=== PATIENT | female | born 1980 | race African-American/Black ===

== ENCOUNTER → 2021-02-09 10:27 | Outpatient (BNVA) | payer OTHER, SELFPAY | PROVIDERS: PCP Internal Medicine; Visit Provider Internal Medicine Pulmonary Disease | DX: J45.909 Unspecified asthma, uncomplicated (principal) | CPT/HCPCS: 99202 ==

== ENCOUNTER 2021-02-24 09:56 | Outpatient (REF) | payer OTHER, SELFPAY ==
--- NOTE | 2021-02-24 11:17 | PFT_ITS ---
Forced vital capacity, moderately reduced, FEV1, MZV84-21, and MVV are markedly reduced. Post bronchodilator therapy, there is a significant improvement in FVC, FEV1, HBT31-24. Total lung capacity normal. Residual volume has markedly increased. Diffusion capacity normal. CONCLUSION: Severe obstructive airway disorder with evidence of air trapping. Significant response to bronchodilator therapy resulting in partial reversibility. These findings are consistent with asthma/COPD overlap syndrome. Clinical correlation is recommended. MD FRANTZ Teran/SHIVANI / [id number]
== END 2021-02-24 09:57 | disposition home or self-care (01) ==
LOC: HO.RESP 09:56
PROVIDERS: Visit Provider Internal Medicine Pulmonary Disease
DX: J45.50 Severe persistent asthma, uncomplicated (principal); Z79.899 Other long term (current) drug therapy
CPT/HCPCS: 94060; 94727; 94729; 99212

== ENCOUNTER → 2021-04-08 10:10 | Outpatient (BNVA) | payer OTHER, SELFPAY | PROVIDERS: PCP Internal Medicine; Visit Provider Internal Medicine Pulmonary Disease | DX: J45.909 Unspecified asthma, uncomplicated (principal); J30.89 Other allergic rhinitis | CPT/HCPCS: 99212 ==

== ENCOUNTER → 2021-04-27 10:40 | Outpatient (BNVA) | payer OTHER, SELFPAY | PROVIDERS: PCP Internal Medicine; Visit Provider Internal Medicine Pulmonary Disease | DX: J45.909 Unspecified asthma, uncomplicated (principal); Z71.89 Other specified counseling | CPT/HCPCS: 99211 ==

== ENCOUNTER → 2021-06-10 09:57 | Outpatient (BNVA) | payer OTHER, SELFPAY | PROVIDERS: PCP Internal Medicine; Visit Provider Internal Medicine Pulmonary Disease | DX: J45.909 Unspecified asthma, uncomplicated (principal); J30.89 Other allergic rhinitis | CPT/HCPCS: 99212 ==

== ENCOUNTER 2021-07-29 14:05 | Outpatient (REF) | payer OTHER, SELFPAY ==
--- NOTE | ~2021-07-29 | XR_ITS ---
EXAMINATION: XR CHEST CLINICAL INFORMATION: Unspecified asthma COMPARISON: None TECHNIQUE: 2 views of the chest were obtained. FINDINGS: No significant abnormality is noted involving the heart, lungs, mediastinum, bony thorax or soft tissues. XR/XR chest 2V IMPRESSION: Unremarkable chest examination.
== END 2021-07-29 14:06 | disposition home or self-care (01) ==
LOC: HO.XRAY 14:05
PROVIDERS: PCP Internal Medicine; Visit Provider Internal Medicine Pulmonary Disease
DX: J40 Bronchitis, not specified as acute or chronic (principal); J45.50 Severe persistent asthma, uncomplicated; J30.89 Other allergic rhinitis; F17.210 Nicotine dependence, cigarettes, uncomplicated
CPT/HCPCS: 71046; 99212

== ENCOUNTER 2021-08-05 11:35 | Outpatient (REF) | payer OTHER, SELFPAY ==
[2021-08-05 12:59] LABS: Basophils Percent Auto 0.8 % (0-2); Eosinophils Absolute Auto 0.1 X10*3/uL (0.0-0.4); Eosinophils Percent Auto 1.3 % (0-4); Hematocrit 40.3 % (37.0-47.0); Hemoglobin 13.5 g/dl (12.0-16.0); Imm Gran Abs Auto 0.01 X10*3/uL (0.00-0.03); Imm Gran Pct Auto 0.3 % (0.0-0.4); Lymphocytes Absolute Auto 2.1 X10*3/uL (1.2-4.9); Mean Corpuscular HGB Conc 33.5 g/dl (31.0-35.0); Mean Corpuscular Hemoglobin 30.7 pg (27.0-33.0); Mean Corpuscular Volume 91.6 fL (80.0-98.0); Monocytes Absolute Auto 0.3 X10*3/uL (0.1-1.2); Neutrophils Absolute Auto 1.5 x10*3/uL (2.0-8.3); Neutrophils Percent Auto 37.6 % (45-73); Platelet Count 362 X10*3/uL (160-400); Red Cell Distribution Width 13.4 % (11.0-16.0)
[2021-08-05 13:00] LABS: MANUAL DIFF FLAG NO
[2021-08-05 13:17] LABS: Alanine Aminotransferase 14 U/L (0-31); Albumin Level 3.8 g/dL (3.5-5.0); Alkaline Phosphatase 67 U/L (39-117); Anion Gap 13 (12-20); Aspartate Amino Transferase 11 U/L (5-31); Bilirubin Total 0.4 mg/dL (0.0-1.0); Blood Urea Nitrogen 9 mg/dL (9-16); C Reactive Protein 0.39 mg/dL (< or = 0.50); Calcium 9.1 mg/dL (8.4-10.2); Carbon Dioxide 27 mmol/L (22-29); Chloride 101 mmol/L (96-108); Cholesterol 191 mg/dL; Estimated Glomerular Filt Rate > 60; Glucose Random 78 mg/dL (60-115); Lipase 26 U/L (8-78); Potassium 4.1 mmol/L (3.3-5.1); Sodium 137 mmol/L (135-145); Total Protein 6.7 g/dL (6.5-8.0)
[2021-08-05 13:40] LABS: Thyroid Stimulating Hormone 1.04 uIU/mL (0.32-4.0)
== END 2021-08-05 11:36 | disposition home or self-care (01) ==
LOC: HO.10HDL 11:35
PROVIDERS: Visit Provider Internal Medicine
DX: R51.9 Headache, unspecified (principal); J45.909 Unspecified asthma, uncomplicated; R14.0 Abdominal distension (gaseous); R10.9 Unspecified abdominal pain
CPT/HCPCS: 36415; 80053; 82465; 83690; 84439; 84443; 85025; 86140

== ENCOUNTER 2022-01-13 10:35 | Emergency (ER) | payer OTHER, SELFPAY ==
[2022-01-13 12:28] VITALS: BP 143/99; PULSE 86; RESP 18; TEMP 36.4; O2SAT 98; BMI 27.0
--- NOTE | 2022-01-13 12:31 | ECG_ITS ---
Test Reason : palpitations and dizziness Blood Pressure : / mmHG Vent. Rate : 079 BPM Atrial Rate : 079 BPM P-R Int : 146 ms QRS Dur : 090 ms QT Int : 374 ms P-R-T Axes : 054 031 038 degrees QTc Int : 428 ms Normal sinus rhythm Nonspecific T wave abnormality Abnormal ECG When compared with ECG of 05-SEP-2018 20:44, Nonspecific T wave abnormality no longer evident in Lateral leads Referred By: Generic ED Physician Electronically Signed By:OSMAR LAKHANI
[2022-01-13 12:44] LABS: MANUAL DIFF FLAG NO
[2022-01-13 12:52] LABS: Basophils Percent Auto 0.5 % (0-2); Eosinophils Absolute Auto 0.1 X10*3/uL (0.0-0.4); Eosinophils Percent Auto 1.4 % (0-4); Hematocrit 40.4 % (37.0-47.0); Hemoglobin 13.3 g/dl (12.0-16.0); Imm Gran Abs Auto 0.01 X10*3/uL (0.00-0.03); Imm Gran Pct Auto 0.2 % (0.0-0.4); Lymphocytes Absolute Auto 2.4 X10*3/uL (1.2-4.9); Lymphocytes Percent Auto 41.3 % (20-40); Mean Corpuscular HGB Conc 32.9 g/dl (31.0-35.0); Mean Corpuscular Hemoglobin 29.3 pg (27.0-33.0); Mean Platelet Volume 9.8 fL (9.4-12.3); Monocytes Absolute Auto 0.4 X10*3/uL (0.1-1.2); Monocytes Percent Auto 6.7 % (2-11); Neutrophils Absolute Auto 2.9 x10*3/uL (2.0-8.3); Neutrophils Percent Auto 49.9 % (45-73); Platelet Count 327 X10*3/uL (160-400); Red Blood Count 4.54 X10*6/uL (4.20-5.50); Red Cell Distribution Width 15.9 % (11.0-16.0); White Blood Count 5.7 X10*3/uL (4.8-10.8)
[2022-01-13 13:10] LABS: Alanine Aminotransferase 14 U/L (0-31); Albumin Level 4.4 g/dL (3.5-5.0); Alkaline Phosphatase 80 U/L (39-117); Anion Gap 16 (12-20); Aspartate Amino Transferase 13 U/L (5-31); Bilirubin Total 0.4 mg/dL (0.0-1.0); Blood Urea Nitrogen 9 mg/dL (9-16); Calcium 9.6 mg/dL (8.4-10.2); Carbon Dioxide 26 mmol/L (22-29); Chloride 102 mmol/L (96-108); Creatinine Clr Calc Pharmacy 78.3; Estimated Glomerular Filt Rate > 60; Glucose Random 99 mg/dL (60-115); Potassium 4.5 mmol/L (3.3-5.1); Sodium 139 mmol/L (135-145); Total Protein 7.4 g/dL (6.5-8.0)
--- NOTE | 2022-01-13 15:29 | ED.GENADULT ---
HPI - General Adult General Chief complaint: General Medical Stated complaint: on and off pain on both ankles Time Seen by Provider: 01/13/22 12:45 Source: patient Mode of arrival: ambulatory History of Present Illness HPI narrative: 41-year-old female with a past medical history of 20+ pack-year smoking, severe persistent asthma, COPD, COVID-19 one month ago presenting to the ED complaining of intermittent palpitations since prior to COVID, intermittnent lightheadedness, SOB, chronic cough, and wheezing over the past week. States her lungs have not been the same since she had COVID-19. Also reports intermittent bilateral ankle swelling. Reports nausea and intermittent vomiting. Denies fever, worsening cough, diarrhea, abdominal pain, calf pain, recent travel, oral OCPs Onset (ago): week(s) Related Data Home Medications Medication Instructions Recorded Confirmed escitalopram oxalate 10 mg tablet 10 mg PO DAILY 02/09/21 04/27/21 hydroxyzine pamoate 25 mg capsule 25 mg PO BID 02/09/21 04/27/21 ipratropium 0.5 mg-albuterol 3 mg ml inhalation 02/09/21 04/27/21 (2.5 mg base)/3 mL nebulization soln Previous Rx's Medication Instructions Recorded dupilumab 300 mg/2 mL subcutaneous See Rx Instructions subcut Q2W 28 04/09/21 syringe (Dupixent) days #4 mL theophylline 400 mg 400 mg PO DAILY #30 tabs 05/21/21 tablet,extended release 24 hr Symbicort 160 mcg-4.5 2 puff inhalation BID 30 days #1 ea 06/10/21 mcg/actuation HFA aerosol inhaler (budesonide-formoterol) albuterol sulfate 90 mcg/actuation 2 puff inhalation Q4-6H PRN 06/10/21 aerosol inhaler shortness of breath or wheezing 30 days #1 ea levofloxacin 750 mg tablet 750 mg PO DAILY #7 tabs 07/29/21 fluticasone fur. 200 mcg-umeclid 1 inh inhalation DAILY 30 days #1 11/06/21 62.5 mcg-vilant 25 mcg ea inhalat.powder (Trelegy Ellipta) prednisone 10 mg tablet 40 mg PO DAILY 5 days #20 tabs 11/06/21 prednisone 20 mg tablet 40 mg PO DAILY 5 days #10 tabs 01/13/22 Allergies Allergy/AdvReac Type Severity Reaction Status Date / Time No Known Allergies Allergy Verified 01/13/22 12:31 Review of Systems Review of Systems: Constitutional: No Fever, No Chills, No Fatigue, No Malaise ENT/Mouth: No Hearing loss, No Ear Pain, No sore throat, No Rhinorrhea, No Swallowing Difficulty Eyes: No Eye Pain, No Swelling, No Redness, No Vision Changes Cardiovascular: No Chest Pain, + SOB, No Dyspnea on Exertion, No Orthopnea, + Edema, + Palpitations Respiratory: + Cough, No Sputum, + Wheezing, + Dyspnea Gastrointestinal: No Nausea, No Vomiting, No Diarrhea, No Constipation, No Abdominal pain Genitourinary: No Dysuria, No Urinary Frequency, No Hematuria, No Urinary Incontinence/retention, No Flank Pain Musculoskeletal: No joint pain, No Myalgias, No Joint Swelling Skin: No Skin Lesions, No rash Neuro: No Weakness, No Numbness, + lightheadedness, No Headache Yes all other systems are reviewed and are negative Constitutional: Constitutional: Reports as per [facility] Past Medical History Attestation statement: The following information was validated with the patient. Social History Social History Advance Directives: No Advance Directives Information Provided: No Physical Exam ED Vital Signs: Vital Signs - 24 hr 01/13/22 12:28 01/13/22 15:53 01/13/22 15:54 Temperature 97.5 F 97.9 F Pulse Rate 86 91 79 Respiratory Rate 18 20 19 Blood Pressure 143/99 H 133/81 Pulse Oximetry 98 97 Oxygen Delivery Method Room Air Room Air 01/13/22 16:58 01/13/22 16:58 01/13/22 16:59 Temperature Pulse Rate 89 84 104 H Respiratory Rate Blood Pressure 134/74 132/83 127/86 Pulse Oximetry Oxygen Delivery Method BMI result Body Mass Index 27.0 Const General: cooperative, healthy appearing and no acute distress Orientation/consciousness: patient oriented x3 Limitations: no limitations HENMT Head: Yes normal to inspection and Yes atraumatic Ears: hearing grossly normal bilaterally General nose exam: Normal external nose present Face and sinus: Yes normal facial exam Eyes General: appearance normal, both eyes and all related structures EOM: EOMs intact bilaterally Neck Neck: Yes normal visual inspection and Yes no meningeal signs Resp Effort & Inspection: normal respiratory effort and no respiratory distress Auscultation: wheezes expiratory wheezes and throughout Cardio Rate: regular rate Heart sounds: S1 normal heart sound present and S2 normal heart sound present GI Inspection: Yes normal to inspection Palpation (GI): Soft to palpation, nontender, no guarding and not rigid General: Yes no CVA tenderness Back/Spine/Pelvis Back: no CVA tenderness Skin Rashes: no rashes Wounds: no wounds Neuro General: patient oriented x3, tone normal and no meningeal signs Gait exam (Neuro): Normal gait present Extrem General: Yes normal to inspection, Yes no pedal edema and Yes no calf tenderness Course Course Course Narrative: -1641--no leukocytosis. Lactic acid negative. Troponin & BNP WNL -UA and negative -COVID-19 negative -1706--on re-evaluation patient reports symptomatic improvement after DuoNeb/IV Solu-Medrol. Lungs CTA. -4--patient no longer wants to wait for CXR, or blood hCG which she requested, will sign out AMA. is A&O x3, competent to make decisions, always welcome to return Medical Decision Making MDM Narrative Medical decision making narrative: 41-year-old female with a past medical history of 20+ pack-year smoking, severe persistent asthma, COPD, COVID-19 one month ago presenting to the ED complaining of intermittent palpitations since prior to COVID, lightheadedness, SOB, chronic cough, and wheezing over the past week. On exam vital signs stable, NAD, nontoxic-appearing, diffuse expiratory wheeze noted throughout, no appreciable pedal edema/calf tenderness. Concern for asthma/COPD exacerbation vs pneumonia vs viral illness vs ? CHF. Low suspicion for ACS/PE/DVT. Low suspicions for cervical dissection/CVT. Plan: EKG, labs, UA, , CXR, COVID-19 testing, DuoNeb, IV Solu-Medrol Medical Records Medical records reviewed: Yes I reviewed the patient's medical records. Lab Data Lab results reviewed: Yes I reviewed the patient's lab results. Result diagrams: 01/13/22 15:49 01/13/22 16:31 Labs: Lab Results 09/21/22 09/21/22 09/21/22 Range/Units 12:40 12:40 15:49 WBC 5.7 5.8 (4.8-10.8) X10*3/uL RBC 4.54 4.94 (4.20-5.50) X10*6/uL Hgb 13.3 14.3 (12.0-16.0) g/dl Hct 40.4 43.5 (37.0-47.0) % MCV 89.0 88.1 (80.0-98.0) fL MCH 29.3 28.9 (27.0-33.0) pg MCHC 32.9 32.9 (31.0-35.0) g/dl RDW 15.9 15.9 (11.0-16.0) % Plt Count 327 337 (160-400) X10*3/uL MPV 9.8 9.8 (9.4-12.3) fL Immature Gran % (Auto) 0.2 0.3 (0.0-0.4) % Neut % (Auto) 49.9 45.1 (45-73) % Lymph % (Auto) 41.3 H 47.4 H (20-40) % [place] % (Auto) 6.7 5.1 (2-11) % Eos % (Auto) 1.4 1.4 (0-4) % Baso % (Auto) 0.5 0.7 (0-2) % Lymph # (Auto) 2.4 2.8 (1.2-4.9) X10*3/uL [place] # (Auto) 0.4 0.3 (0.1-1.2) X10*3/uL Eos # (Auto) 0.1 0.1 (0.0-0.4) X10*3/uL Baso # (Auto) 0.0 0.0 (0.0-0.2) X10*3/uL Abs Immat Gran (auto) 0.01 0.02 (0.00-0.03) X10*3/uL Absolute Neuts (auto) 2.9 2.6 (2.0-8.3) x10*3/uL Absolute Nucleated RBC 0.000 0.000 (0.0-0.012) X10*3/uL Nucleated RBC % (auto) 0.0 0.0 (0.0-0.2) /100WBC Sodium 139 (135-145) mmol/L Potassium 4.5 (3.3-5.1) mmol/L Chloride 102 (96-108) mmol/L Carbon Dioxide 26 (22-29) mmol/L Anion Gap 16 (12-20) BUN 9 (9-16) mg/dL Creatinine 0.67 (0.5-1.4) mg/dL Estim Creat Clear Calc 78.3 Estimated GFR > 60 Random Glucose 99 (60-115) mg/dL Lactic Acid (0.5-2.0) mmol/L Calcium 9.6 (8.4-10.2) mg/dL Magnesium (1.6-2.6) mg/dL Total Bilirubin 0.4 (0.0-1.0) mg/dL Direct Bilirubin (0.0-0.5) mg/dL AST 13 (5-31) U/L ALT 14 (0-31) U/L Alkaline Phosphatase 80 (39-117) U/L Troponin I High Sens (<3.5-17.0) ng/L B-Natriuretic Peptide (<100) pg/mL Total Protein 7.4 (6.5-8.0) g/dL Albumin 4.4 (3.5-5.0) g/dL TSH (0.32-4.0) uIU/mL Beta HCG, Quant mIU/mL Urine Color Urine Appearance Urine pH (5.0-9.0) Ur Specific [place] (1.005-1.025) Urine Protein (Neg-Trace) mg/dL Urine Glucose (UA) (Negative) mg/dL Urine Ketones (Negative) mg/dL Urine Blood (Negative) Urine Nitrite (Negative) Ur Leukocyte Esterase (Negative) Urine Test (NEGATIVE) COVID-19 (JANA) (Negative) COVID-19 Clin Com 01/13/22 01/13/22 01/13/22 Range/Units 15:49 15:49 15:49 WBC (4.8-10.8) X10*3/uL RBC (4.20-5.50) X10*6/uL Hgb (12.0-16.0) g/dl Hct (37.0-47.0) % MCV (80.0-98.0) fL MCH (27.0-33.0) pg MCHC (31.0-35.0) g/dl RDW (11.0-16.0) % Plt Count (160-400) X10*3/uL MPV (9.4-12.3) fL Immature Gran % (Auto) (0.0-0.4) % Neut % (Auto) (45-73) % Lymph % (Auto) (20-40) % [place] % (Auto) (2-11) % Eos % (Auto) (0-4) % Baso % (Auto) (0-2) % Lymph # (Auto) (1.2-4.9) X10*3/uL [place] # (Auto) (0.1-1.2) X10*3/uL Eos # (Auto) (0.0-0.4) X10*3/uL Baso # (Auto) (0.0-0.2) X10*3/uL Abs Immat Gran (auto) (0.00-0.03) X10*3/uL Absolute Neuts (auto) (2.0-8.3) x10*3/uL Absolute Nucleated RBC (0.0-0.012) X10*3/uL Nucleated RBC % (auto) (0.0-0.2) /100WBC Sodium (135-145) mmol/L Potassium (3.3-5.1) mmol/L Chloride (96-108) mmol/L Carbon Dioxide (22-29) mmol/L Anion Gap (12-20) BUN (9-16) mg/dL Creatinine (0.5-1.4) mg/dL Estim Creat Clear Calc Estimated GFR Random Glucose (60-115) mg/dL Lactic Acid 1.5 (0.5-2.0) mmol/L Calcium (8.4-10.2) mg/dL Magnesium (1.6-2.6) mg/dL Total Bilirubin (0.0-1.0) mg/dL Direct Bilirubin (0.0-0.5) mg/dL AST (5-31) U/L ALT (0-31) U/L Alkaline Phosphatase (39-117) U/L Troponin I High Sens < 3.5 (<3.5-17.0) ng/L B-Natriuretic Peptide 53 (<100) pg/mL Total Protein (6.5-8.0) g/dL Albumin (3.5-5.0) g/dL TSH (0.32-4.0) uIU/mL Beta HCG, Quant mIU/mL Urine Color Urine Appearance Urine pH (5.0-9.0) Ur Specific [place] (1.005-1.025) Urine Protein (Neg-Trace) mg/dL Urine Glucose (UA) (Negative) mg/dL Urine Ketones (Negative) mg/dL Urine Blood (Negative) Urine Nitrite (Negative) Ur Leukocyte Esterase (Negative) Urine Test (NEGATIVE) COVID-19 (JANA) Negative (Negative) COVID-19 Clin Com See Note 01/13/22 01/13/22 01/13/22 Range/Units 15:49 15:49 16:31 WBC (4.8-10.8) X10*3/uL RBC (4.20-5.50) X10*6/uL Hgb (12.0-16.0) g/dl Hct (37.0-47.0) % MCV (80.0-98.0) fL MCH (27.0-33.0) pg MCHC (31.0-35.0) g/dl RDW (11.0-16.0) % Plt Count (160-400) X10*3/uL MPV (9.4-12.3) fL Immature Gran % (Auto) (0.0-0.4) % Neut % (Auto) (45-73) % Lymph % (Auto) (20-40) % [place] % (Auto) (2-11) % Eos % (Auto) (0-4) % Baso % (Auto) (0-2) % Lymph # (Auto) (1.2-4.9) X10*3/uL [place] # (Auto) (0.1-1.2) X10*3/uL Eos # (Auto) (0.0-0.4) X10*3/uL Baso # (Auto) (0.0-0.2) X10*3/uL Abs Immat Gran (auto) (0.00-0.03) X10*3/uL Absolute Neuts (auto) (2.0-8.3) x10*3/uL Absolute Nucleated RBC (0.0-0.012) X10*3/uL Nucleated RBC % (auto) (0.0-0.2) /100WBC Sodium 139 (135-145) mmol/L Potassium 3.9 (3.3-5.1) mmol/L Chloride 101 (96-108) mmol/L Carbon Dioxide 23 (22-29) mmol/L Anion Gap 19 (12-20) BUN 9 (9-16) mg/dL Creatinine 0.68 (0.5-1.4) mg/dL Estim Creat Clear Calc 77.2 Estimated GFR > 60 Random Glucose 99 (60-115) mg/dL Lactic Acid (0.5-2.0) mmol/L Calcium 9.3 (8.4-10.2) mg/dL Magnesium 1.9 (1.6-2.6) mg/dL Total Bilirubin 0.5 (0.0-1.0) mg/dL Direct Bilirubin 0.2 (0.0-0.5) mg/dL AST 14 (5-31) U/L ALT 12 (0-31) U/L Alkaline Phosphatase 81 (39-117) U/L Troponin I High Sens (<3.5-17.0) ng/L B-Natriuretic Peptide (<100) pg/mL Total Protein 7.7 (6.5-8.0) g/dL Albumin 4.6 (3.5-5.0) g/dL TSH 3.39 (0.32-4.0) uIU/mL Beta HCG, Quant < 2 mIU/mL Urine Color Yellow Urine Appearance Clear Urine pH 5.5 (5.0-9.0) Ur Specific [place] 1.020 (1.005-1.025) Urine Protein Negative (Neg-Trace) mg/dL Urine Glucose (UA) Negative (Negative) mg/dL Urine Ketones Trace (Negative) mg/dL Urine Blood Negative (Negative) Urine Nitrite Negative (Negative) Ur Leukocyte Esterase Negative (Negative) Urine Test NEGATIVE (NEGATIVE) COVID-19 (JANA) (Negative) COVID-19 Clin Com Discharge Plan Discharge Clinical Impression: Asthma exacerbation Patient Disposition: Left Against Medical Advice Additional Instructions: Your blood work and chest x-ray were reassuring. You tested negative for COVID-19 This important for you to have close follow-up with her primary care doctor/yarrow gatherer. START TAKING PREDNISONE PRESCRIBED. CONTINUE TAKING OTHER ASTHMA/COPD MEDICATIONS If symptoms persist/worsen, if constant worsening chest pain/shortness breath, swelling in her legs, fever return to the emergency department Prescriptions: New prednisone 20 mg tablet 40 mg PO DAILY 5 Days Qty: 10 0RF No Action Dupixent Syringe 300 mg/2 mL syringe See Rx Instructions subcut Q2W 28 Days Qty: 4 12RF Rx Instructions: Loading dose of 600 mg, then 300 mg every 2 weeks, subcut; theophylline 400 mg tablet extended release 24 hr 400 mg PO DAILY Qty: 30 0RF Trelegy Ellipta 200-62.5-25 mcg blister with device 1 inh inhalation DAILY 30 Days Qty: 1 6RF prednisone 10 mg tablet 40 mg PO DAILY 5 Days Qty: 20 0RF hydroxyzine pamoate 25 mg capsule 25 mg PO BID ipratropium-albuterol 0.5 mg-3 mg(2.5 mg base)/3 mL solution for nebulization inhalation escitalopram oxalate 10 mg tablet 10 mg PO DAILY budesonide-formoterol [Symbicort] 160-4.5 mcg/actuation HFA aerosol inhaler 2 puff inhalation BID 30 Days Qty: 1 6RF albuterol sulfate 90 mcg/actuation HFA aerosol inhaler 2 puff inhalation Q4-6H PRN (Reason: shortness of breath or wheezing) 30 Days Qty: 1 6RF levofloxacin 750 mg tablet 750 mg PO DAILY Qty: 7 0RF Referrals: Justin Madrid MD [Primary Care Provider] - 3 days Stand Alone Forms: Against Medical Advice Interventions: ED Discharge Assessment Last Done: 01/13/22 17:26 Discharge Date/Time: 01/13/22 17:28
[2022-01-13] MEDS: Albuterol Sulfate 5 MG, Albuterol Sulfate (0.083%) 2.5 MG 7.5 MG INHALE (15:51)
[2022-01-13] MEDS: Albuterol/Iprat 2.5/0.5MG 3 ML AMPUL.NEB INHALE (15:52)
[2022-01-13 15:53] VITALS: PULSE 91; RESP 20; O2SAT 97
[2022-01-13 15:54] VITALS: BP 133/81; PULSE 79; RESP 19; TEMP 36.6; O2SAT 97
[2022-01-13 16:00] LABS: MANUAL DIFF FLAG NO
[2022-01-13] MEDS: methylPREDNISolone Sod Succ 125 MG/2 ML VIAL IVPUSH (16:03)
[2022-01-13 16:05] LABS: Basophils Percent Auto 0.7 % (0-2); Eosinophils Absolute Auto 0.1 X10*3/uL (0.0-0.4); Eosinophils Percent Auto 1.4 % (0-4); Hematocrit 43.5 % (37.0-47.0); Hemoglobin 14.3 g/dl (12.0-16.0); Imm Gran Abs Auto 0.02 X10*3/uL (0.00-0.03); Imm Gran Pct Auto 0.3 % (0.0-0.4); Lymphocytes Absolute Auto 2.8 X10*3/uL (1.2-4.9); Lymphocytes Percent Auto 47.4 % (20-40); Mean Corpuscular HGB Conc 32.9 g/dl (31.0-35.0); Mean Corpuscular Hemoglobin 28.9 pg (27.0-33.0); Mean Corpuscular Volume 88.1 fL (80.0-98.0); Mean Platelet Volume 9.8 fL (9.4-12.3); Monocytes Absolute Auto 0.3 X10*3/uL (0.1-1.2); Monocytes Percent Auto 5.1 % (2-11); Neutrophils Absolute Auto 2.6 x10*3/uL (2.0-8.3); Neutrophils Percent Auto 45.1 % (45-73); Platelet Count 337 X10*3/uL (160-400); Red Blood Count 4.94 X10*6/uL (4.20-5.50); Red Cell Distribution Width 15.9 % (11.0-16.0); White Blood Count 5.8 X10*3/uL (4.8-10.8)
[2022-01-13 16:14] LABS: Appearance Urine Clear; Color Urine Yellow; Glucose Urine UA Negative (Negative); Leukocyte Esterase Urine Negative (Negative); Nitrite Urine Negative (Negative); PH 5.5 (5.0-9.0); Urine Blood Negative (Negative); Urine Ketones Trace mg/dL (Negative); Urine Protein Negative (Neg-Trace)
[2022-01-13 16:15] LABS: Lactic Acid 1.5 mmol/L (0.5-2.0); UPreg QC Valid YES; Urine Pregnancy NEGATIVE (NEGATIVE)
[2022-01-13 16:26] LABS: B Type Natriuretic Peptide 53 pg/mL (<100); Troponin-I High Sensitivity < 3.5 ng/L (<3.5-17.0)
[2022-01-13 16:30] LABS: COVID-19 Test Negative (Negative); IDNOW Serial# 9DD0AD1C
[2022-01-13 16:58] VITALS: BP 132/83; BP 134/74; PULSE 84; PULSE 89
[2022-01-13 16:59] VITALS: BP 127/86; PULSE 104
[2022-01-13 17:00] LABS: Alanine Aminotransferase 12 U/L (0-31); Albumin Level 4.6 g/dL (3.5-5.0); Alkaline Phosphatase 81 U/L (39-117); Anion Gap 19 (12-20); Aspartate Amino Transferase 14 U/L (5-31); Bilirubin Direct 0.2 mg/dL (0.0-0.5); Bilirubin Total 0.5 mg/dL (0.0-1.0); Blood Urea Nitrogen 9 mg/dL (9-16); Calcium 9.3 mg/dL (8.4-10.2); Carbon Dioxide 23 mmol/L (22-29); Chloride 101 mmol/L (96-108); Creatinine Clr Calc Pharmacy 77.2; Estimated Glomerular Filt Rate > 60; Glucose Random 99 mg/dL (60-115); Magnesium 1.9 mg/dL (1.6-2.6); Potassium 3.9 mmol/L (3.3-5.1); Sodium 139 mmol/L (135-145); Total Protein 7.7 g/dL (6.5-8.0)
[2022-01-13 17:22] LABS: TSH reflex Free T4 3.39 uIU/mL (0.32-4.0)
[2022-01-13 17:30] LABS: HCG Quantitative < 2 mIU/mL
== END 2022-01-13 17:28 | disposition left against medical advice (07) ==
PROVIDERS: Physician Assistant; Emergency Provider Emergency Medicine Emergency Medical Services; PCP Internal Medicine
DX: J45.901 Unspecified asthma with (acute) exacerbation (principal); R06.02 Shortness of breath; Z20.822 Contact with and (suspected) exposure to COVID-19; Z87.891 Personal history of nicotine dependence; Z79.899 Other long term (current) drug therapy
CPT/HCPCS: 36415; 80048; 80053; 80076; 81003; 81025; 83605; 83735; 83880; 84443; 84484; 84702; 85025; 87040; 87635; 93005; 94640; 96374; 99284; J2930

== ENCOUNTER 2022-01-28 14:00 | Outpatient (REF) | payer OTHER, SELFPAY ==
[2022-01-28 15:05] LABS: HCG Quantitative < 2 mIU/mL
== END 2022-01-28 14:01 | disposition home or self-care (01) ==
LOC: HO.LAB 14:00
PROVIDERS: PCP Internal Medicine; Visit Provider Internal Medicine
DX: Z34.90 Encounter for supervision of normal pregnancy, unspecified, unspecified trimester (principal); J45.909 Unspecified asthma, uncomplicated; U09.9 Post COVID-19 condition, unspecified
CPT/HCPCS: 36415; 84702; 99212

== ENCOUNTER 2022-04-12 10:08 | Outpatient (REF) | payer OTHER, SELFPAY ==
--- NOTE | 2022-04-12 11:15 | PFT_ITS ---
FLOWS: FEV1 47% of predicted at 1.07 L. FVC 69% of predicted at 1.94 L. FEV1 to FVC ratio of 0.55. Positive bronchodilator response. LUNG VOLUMES: Total lung capacity 107% of predicted at 4.31 L. Residual volume 186% of predicted at 2.47 L. Slow vital capacity 68% of predicted at 1.84 L. Expiratory reserve volume 32% of predicted at 0.28 L. Diffusion capacity is normal. In comparison to pulmonary function test from February of 2021, FEV1 has decreased by 0.28 L, FVC has decreased by 0.40 L, total lung capacity has decreased by 0.37 L, residual volume was without significant changes, slow vital capacity has decreased by 0.32 L, expiratory reserve volume has decreased by 0.15 L, diffusion capacity has decreased by 2.19 mL/minute per mmHg. IMPRESSION: Severe obstructive ventilatory defect with positive bronchodilator response. Increased residual volume suggests air trapping. Christo Darnell MD AP/MODL / [id number]
== END 2022-04-12 10:09 | disposition home or self-care (01) ==
LOC: HO.RESP 10:08
PROVIDERS: Visit Provider Internal Medicine Pulmonary Disease
DX: J45.909 Unspecified asthma, uncomplicated (principal)
CPT/HCPCS: 94060; 94727; 94729

== ENCOUNTER 2022-04-24 05:28 | Emergency (ER) | payer OTHER, SELFPAY ==
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
[2022-04-24 05:33] VITALS: BP 143/103; PULSE 107; RESP 20; TEMP 36.4; O2SAT 95; BMI 25.9
[2022-04-24 06:43] VITALS: BP 140/87; PULSE 84; RESP 16; TEMP 36.6; O2SAT 96
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
[2022-04-24 07:15] VITALS: BP 132/93; PULSE 94; RESP 26; TEMP 36.9; O2SAT 96
--- NOTE | 2022-04-24 07:15 | PC.NURSE ---
assumed care of patient, pt aox3, calm and cooperative, VSS, plan for PO pain control and d/c home
[2022-04-24] MEDS: LORazepam 1 MG TABLET PO (07:38)
[2022-04-24] MEDS: Ibuprofen 600 MG TABLET PO (07:38)
[2022-04-24] MEDS: Albuterol/Iprat 2.5/0.5MG 3 ML AMPUL.NEB INHALE (08:14)
[2022-04-24 08:16] VITALS: PULSE 106; RESP 16; O2SAT 93
== END 2022-04-24 08:40 | disposition home or self-care (01) ==
PROVIDERS: Emergency Provider Emergency Medicine; PCP Internal Medicine
DX: S22.42XA Multiple fractures of ribs, left side, initial encounter for closed fracture (principal); X58.XXXA Exposure to other specified factors, initial encounter; J45.909 Unspecified asthma, uncomplicated; F17.210 Nicotine dependence, cigarettes, uncomplicated; Y93.89 Activity, other specified; Y92.810 Car as the place of occurrence of the external cause; Y99.9 Unspecified external cause status
CPT/HCPCS: 71101; 94640; 99284

== ENCOUNTER → 2022-04-30 12:50 | Outpatient (BNVA) | payer OTHER, SELFPAY | PROVIDERS: PCP Internal Medicine; Visit Provider Internal Medicine Pulmonary Disease | DX: J45.50 Severe persistent asthma, uncomplicated (principal); J30.89 Other allergic rhinitis; J40 Bronchitis, not specified as acute or chronic | CPT/HCPCS: 99212 ==

== ENCOUNTER 2022-05-02 10:00 | Inpatient (IN) | payer OTHER, SELFPAY ==
[2022-05-02] VITALS (8 sets, daily range): BP systolic 120–147; BP diastolic 61–85; PULSE 95–119; RESP 16–28; TEMP 36.2–36.8; O2SAT 95–100; BMI 27.4
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
--- NOTE | 2022-05-02 11:15 | ECG_ITS ---
Test Reason : sob Blood Pressure : / mmHG Vent. Rate : 095 BPM Atrial Rate : 095 BPM P-R Int : 156 ms QRS Dur : 088 ms QT Int : 360 ms P-R-T Axes : 073 024 025 degrees QTc Int : 452 ms Normal sinus rhythm Nonspecifc T wave changes Abnormal ECG When compared with ECG of 13-JAN-2022 12:35, No significant change was found Referred By: Odette Muller Electronically Signed By:Saravanan Iniguez
[2022-05-02] MEDS: methylPREDNISolone Sod Succ 125 MG/2 ML VIAL IVPUSH (11:43)
[2022-05-02] MEDS: Magnesium Sulfate/H2O 2 GM/50 ML PIGGYBACK IV (11:46)
[2022-05-02 11:48] LABS: MANUAL DIFF FLAG NO
[2022-05-02 11:49] LABS: Basophils Percent Auto 0.7 % (0-2); Eosinophils Absolute Auto 0.1 X10*3/uL (0.0-0.4); Eosinophils Percent Auto 1.8 % (0-4); Hematocrit 39.7 % (37.0-47.0); Hemoglobin 13.4 g/dl (12.0-16.0); Imm Gran Abs Auto 0.01 X10*3/uL (0.00-0.03); Imm Gran Pct Auto 0.2 % (0.0-0.4); Lymphocytes Absolute Auto 2.3 X10*3/uL (1.2-4.9); Lymphocytes Percent Auto 40.2 % (20-40); Mean Corpuscular HGB Conc 33.8 g/dl (31.0-35.0); Mean Corpuscular Hemoglobin 28.6 pg (27.0-33.0); Mean Corpuscular Volume 84.8 fL (80.0-98.0); Mean Platelet Volume 9.2 fL (9.4-12.3); Monocytes Absolute Auto 0.4 X10*3/uL (0.1-1.2); Monocytes Percent Auto 7.1 % (2-11); Neutrophils Absolute Auto 2.8 x10*3/uL (2.0-8.3); Platelet Count 336 X10*3/uL (160-400); Red Blood Count 4.68 X10*6/uL (4.20-5.50); Red Cell Distribution Width 15.8 % (11.0-16.0); White Blood Count 5.7 X10*3/uL (4.8-10.8)
[2022-05-02 11:52] LABS: Appearance Urine Clear; Color Urine Yellow; Glucose Urine UA Negative (Negative); Leukocyte Esterase Urine Small (1+) (Negative); Nitrite Urine Negative (Negative); UMIC TRIGGER UACC YES; Urine Blood Large (3+) (Negative); Urine Ketones Negative (Negative); Urine Protein Negative (Neg-Trace)
[2022-05-02 11:54] LABS: UPreg QC Valid YES; Urine Pregnancy NEGATIVE (NEGATIVE)
[2022-05-02 11:55] LABS: Bacteria Urine None Seen (None Seen); Hyaline Casts Urine 0-2 /LPF (0-2); RBC Urine >20 /HPF (0-2); Squamous Epithelial Cell Urine 0-2 /HPF (0-2); UACC Culture Trigger YES; WBC Urine 21-50 /HPF (0-5)
[2022-05-02 11:55] LABS: INTERNATIONAL NORM RATIO 0.9 (0.9-1.1); Prothrombin Time 9.8 SEC (10.0-13.1)
[2022-05-02 12:07] LABS: COVID-19 Test Negative (Negative); IDNOW Serial# BCCEAD1C
[2022-05-02 12:08] LABS: IDNOW Serial# 16C4AD1C; Influenza A Negative (Negative); Influenza B2 Negative (Negative)
[2022-05-02 12:10] LABS: Amphetamine Screen Urine Not Detected (Not Detect); Barbiturates, Urine Not Detected (Not Detect); Benzodiazepines Screen Urine Not Detected (Not Detect); Cannabinoid Screen Urine Not Detected (Not Detect); Cocaine Screen Urine Not Detected (Not Detect); Fentanyl, urine Not Detected (Not Detect); Opiate Screen Urine Not Detected (Not Detect); Phencyclidine Screen Urine Not Detected (Not Detect)
[2022-05-02 12:11] LABS: B Type Natriuretic Peptide 54 pg/mL (<100)
[2022-05-02 13:05] LABS: Acetaminophen LAB < 17 mcg/mL (<30); Alanine Aminotransferase 11 U/L (0-31); Albumin Level 3.9 g/dL (3.5-5.0); Alkaline Phosphatase 64 U/L (39-117); Anion Gap 14 (12-20); Aspartate Amino Transferase 13 U/L (5-31); Bilirubin Direct 0.2 mg/dL (0.0-0.5); Bilirubin Total 0.4 mg/dL (0.0-1.0); Blood Urea Nitrogen 6 mg/dL (9-16); Calcium 8.7 mg/dL (8.4-10.2); Carbon Dioxide 24 mmol/L (22-29); Chloride 106 mmol/L (96-108); Creatinine Clr Calc Pharmacy 81.8; Estimated Glomerular Filt Rate > 60; Glucose Random 84 mg/dL (60-115); Lipase 10 U/L (8-78); Magnesium 2.8 mg/dL (1.6-2.6); Potassium 4.4 mmol/L (3.3-5.1); Sodium 140 mmol/L (135-145); Total Protein 6.4 g/dL (6.5-8.0)
[2022-05-02] MEDS: cefTRIAXone sodium 1 GM in 0.9 % Sodium Chloride 50 ML IV (13:17)
[2022-05-02] MEDS: iohexoL 350 MG/ML 100 ML INFUS..BTL IV (14:03)
[2022-05-02] MEDS: Albuterol Sulfate 7.5 MG, Albuterol Sulfate (0.083%) 2.5 MG 10 MG INHALE (14:07)
[2022-05-02] MEDS: Azithromycin 500 MG in 0.9 % Sodium Chloride 250 ML 125 MG IV (15:58)
[2022-05-02] MEDS: Ketorolac Tromethamine 15 MG/ML VIAL IVPUSH (16:54)
[2022-05-02] MEDS: Morphine Sulfate 2 MG/ML CARTRIDGE IVPUSH (16:55)
--- NOTE | 2022-05-02 17:44 | PHA.MEDREC ---
Pharmacy Consult ? Medication Reconciliation Pharmacy has completed the medication reconciliation.
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
[2022-05-02] MEDS: Nicotine 14 MG PATCH.TD24 TRANSDERMA (19:47)
[2022-05-02] MEDS: Benzonatate 100 MG CAPSULE PO (20:40)
[2022-05-02] MEDS: oxyCODONE HCl Immed Release 5 MG TABLET PO (20:40)
[2022-05-02] MEDS: Acetaminophen 325 MG TABLET 650 MG PO (20:41)
[2022-05-02] MEDS: hydrOXYzine HCL 25 MG TABLET PO (20:48)
[2022-05-02] MEDS: methylPREDNISolone Sod Succ 40 MG/ML VIAL IVPUSH (22:14)
[2022-05-03 04:02] VITALS: BP 120/72; PULSE 90; RESP 20; TEMP 36.7; O2SAT 100
--- NOTE | 2022-05-03 04:07 | PC.NURSE ---
Patient is alert and oriented x4. Patient is able to make her needs known. Patient has been using a bed side commode with assistance of 1 person. VSS. RR 20, O2 Sat 100% RA. Patient medicated with Tylenol and Oxycodone with good relief. Patient denies any pain at present.
[2022-05-03 07:48] VITALS: BP 119/70; PULSE 99; RESP 21; TEMP 36.7; O2SAT 100
[2022-05-03] MEDS: oxyCODONE HCl Immed Release 5 MG TABLET PO ×2 (09:10→14:42)
[2022-05-03] MEDS: Benzonatate 100 MG CAPSULE PO ×2 (09:10→14:43)
[2022-05-03] MEDS: Acetaminophen 325 MG TABLET 650 MG PO ×2 (09:11→14:43)
[2022-05-03] MEDS: Nicotine 14 MG PATCH.TD24 TRANSDERMA (09:11)
[2022-05-03] MEDS: methylPREDNISolone Sod Succ 40 MG/ML VIAL IVPUSH (10:15)
[2022-05-03 11:21] VITALS: PULSE 107; RESP 22; O2SAT 98
[2022-05-03 11:31] VITALS: BP 138/73; PULSE 92; RESP 20; TEMP 36.6; O2SAT 100
--- NOTE | 2022-05-03 12:21 | MHC.CM.PN ---
met with pt who lives alone pt has a lead generation specialist ,is not vax and has own ride home dc plan resume same
[2022-05-03] MEDS: cefTRIAXone sodium 1 GM in 0.9 % Sodium Chloride 50 ML IV (12:43)
[2022-05-03 14:44] VITALS: RESP 18; O2SAT 98
[2022-05-03 14:57] VITALS: BP 116/59; PULSE 107; RESP 17; TEMP 36.3; O2SAT 100
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
--- NOTE | 2022-05-03 16:07 | MHC.CM.PN ---
Patient has been medically cleared for dc to home today, self care.
== END 2022-05-03 17:00 | disposition home or self-care (01) | DRG 141 ==
LOC: HO.ED 15:30 → HO.EDOVER 18:09 → HO.IMC 05-03 09:34
PROVIDERS: Physician Assistant; Admitting Provider Hospitalist; Emergency Provider Emergency Medicine Emergency Medical Services; PCP Internal Medicine; Visit Provider Hospitalist
DX: J45.901 Unspecified asthma with (acute) exacerbation (principal); J18.9 Pneumonia, unspecified organism; S27.321A Contusion of lung, unilateral, initial encounter; F17.210 Nicotine dependence, cigarettes, uncomplicated; S22.42XA Multiple fractures of ribs, left side, initial encounter for closed fracture; V47.6XXA Car passenger injured in collision with fixed or stationary object in traffic accident, initial encounter; Z71.6 Tobacco abuse counseling; Z20.822 Contact with and (suspected) exposure to COVID-19; Z79.899 Other long term (current) drug therapy
CPT/HCPCS: 71260; 74177; 80048; 80076; 80143; 80307; 81001; 81025; 83690; 83735; 83880; 85025; 85610; 87086; 87502; 87635; 93005; 94640; 96365; 96367; 96375; 99222; 99285; J0456; J0696; J1885; J2270; J2920; J2930; J3475; Q9967

== ENCOUNTER 2022-05-11 17:37 | Emergency (ER) | payer OTHER, SELFPAY ==
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
[2022-05-11 18:10] VITALS: BP 145/83; PULSE 93; RESP 16; TEMP 36.4; O2SAT 100; BMI 27.4
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
[2022-05-11 18:35] LABS: MANUAL DIFF FLAG NO
[2022-05-11 18:36] LABS: Basophils Percent Auto 0.6 % (0-2); Eosinophils Absolute Auto 0.2 X10*3/uL (0.0-0.4); Eosinophils Percent Auto 2.4 % (0-4); Hematocrit 34.6 % (37.0-47.0); Hemoglobin 11.5 g/dl (12.0-16.0); Imm Gran Abs Auto 0.02 X10*3/uL (0.00-0.03); Imm Gran Pct Auto 0.3 % (0.0-0.4); Lymphocytes Absolute Auto 2.8 X10*3/uL (1.2-4.9); Lymphocytes Percent Auto 45.3 % (20-40); Mean Corpuscular HGB Conc 33.2 g/dl (31.0-35.0); Mean Corpuscular Hemoglobin 28.2 pg (27.0-33.0); Mean Corpuscular Volume 84.8 fL (80.0-98.0); Mean Platelet Volume 8.5 fL (9.4-12.3); Monocytes Absolute Auto 0.5 X10*3/uL (0.1-1.2); Monocytes Percent Auto 7.4 % (2-11); Neutrophils Absolute Auto 2.7 x10*3/uL (2.0-8.3); Platelet Count 415 X10*3/uL (160-400); Red Blood Count 4.08 X10*6/uL (4.20-5.50); Red Cell Distribution Width 15.8 % (11.0-16.0); White Blood Count 6.2 X10*3/uL (4.8-10.8)
[2022-05-11 18:37] LABS: Appearance Urine Clear; Color Urine Yellow; Glucose Urine UA Negative (Negative); Leukocyte Esterase Urine Negative (Negative); Nitrite Urine Negative (Negative); PH 8.5 (5.0-9.0); Specific Gravity - Urine 1.015 (1.005-1.025); Urine Blood Negative (Negative); Urine Ketones Negative (Negative); Urine Protein Negative (Neg-Trace)
[2022-05-11 18:54] LABS: UPreg QC Valid NO; Urine Pregnancy NEGATIVE (NEGATIVE)
[2022-05-11 18:57] LABS: Alanine Aminotransferase 17 U/L (0-31); Albumin Level 3.8 g/dL (3.5-5.0); Alkaline Phosphatase 78 U/L (39-117); Anion Gap 11 (12-20); Aspartate Amino Transferase 14 U/L (5-31); Bilirubin Total 0.2 mg/dL (0.0-1.0); Blood Urea Nitrogen 10 mg/dL (9-16); Carbon Dioxide 30 mmol/L (22-29); Chloride 100 mmol/L (96-108); Estimated Glomerular Filt Rate > 60; Glucose Random 98 mg/dL (60-115); HCG Quantitative < 2 mIU/mL; Potassium 4.3 mmol/L (3.3-5.1); Sodium 137 mmol/L (135-145); Total Protein 6.3 g/dL (6.5-8.0)
--- NOTE | 2022-05-11 22:34 | PC.NURSE ---
pt education provided on incentive spirometer usage.
== END 2022-05-11 22:35 | disposition home or self-care (01) ==
PROVIDERS: Physician Assistant; Emergency Provider Internal Medicine; PCP Internal Medicine
DX: S22.42XA Multiple fractures of ribs, left side, initial encounter for closed fracture (principal); M54.50 Low back pain, unspecified; V43.52XA Car driver injured in collision with other type car in traffic accident, initial encounter; Y93.9 Activity, unspecified; Y92.410 Unspecified street and highway as the place of occurrence of the external cause; Y99.9 Unspecified external cause status; Z79.899 Other long term (current) drug therapy
CPT/HCPCS: 36415; 71250; 74176; 80053; 81003; 81025; 84702; 85025; 99282; 99284

== ENCOUNTER → 2022-06-09 09:30 | Outpatient (BNVA) | payer OTHER, SELFPAY | PROVIDERS: PCP Internal Medicine; Visit Provider Internal Medicine Pulmonary Disease | DX: J45.50 Severe persistent asthma, uncomplicated (principal); J40 Bronchitis, not specified as acute or chronic; J30.89 Other allergic rhinitis; S22.49XA Multiple fractures of ribs, unspecified side, initial encounter for closed fracture; Z79.899 Other long term (current) drug therapy | CPT/HCPCS: 99212 ==

== ENCOUNTER 2022-07-06 13:27 | Outpatient (REF) | payer OTHER, SELFPAY ==
--- NOTE | ~2022-07-06 | CT_ITS ---
EXAMINATION: CT CHEST WITHOUT CONTRAST CLINICAL INFORMATION: Multiple fractures of ribs. COMPARISON: CT chest 05/11/2022 TECHNIQUE: Multidetector volumetric CT imaging of the chest was done. Axial MIP volume rendering provided. Sagittal and coronal reformatted images were obtained. This CT examination was performed using dose optimization techniques as appropriate, variously including the following: *Automated exposure control *Adjustment of mA and/or kV according to patient size (this includes techniques or standardized protocols for targeted exams where dose is matched to indication/reason for exam; i.e. extremities or head) *Use of iterative reconstruction technique DLP: 185 mGy-cm FINDINGS: MARINE INSULATOR: Unremarkable chest. LUNGS: The lungs are well-expanded and clear of acute pneumonic process. There is a 2 mm nodule left upper lobe axial image 13/6. MEDIASTINUM: The thyroid lobes are symmetric and normal. The central trachea and the bronchi are widely patent. The heart size and great vessels are normal caliber. No pericardial effusion seen. No abnormal size mediastinal or hilar lymph nodes seen. CORONARY ARTERY CALCIFICATION: None visualized on this study. PLEURA: There is no pleural effusion. No pleural mass or thickening. AXILLA: No lymphadenopathy. UPPER ABDOMEN: Visualized liver, spleen, pancreas and bilateral adrenal glands are unremarkable. OSSEOUS STRUCTURES: No aggressive lytic or sclerotic process seen. There is an acute fracture of the left posterior 11th and old healing fractures of the 10th, 9th, 5th and 4th ribs. CT/CT chest wo IV con IMPRESSION: There is acute left posterior rib fracture with multiple old healing fractures involving 4th, 5th, 9th and 10th ribs. Solitary 2 mm nodule left upper lobe, nonspecific. Fleischner guidelines were followed.
== END 2022-07-06 13:28 | disposition home or self-care (01) ==
LOC: HO.CT 13:27
PROVIDERS: PCP Internal Medicine; Visit Provider Internal Medicine Pulmonary Disease
DX: S22.42XA Multiple fractures of ribs, left side, initial encounter for closed fracture (principal)
CPT/HCPCS: 71250

== ENCOUNTER 2022-07-08 05:14 | Emergency (ER) | payer OTHER, SELFPAY ==
--- NOTE | ~2022-07-08 | XR_ITS ---
EXAMINATION: XR CHEST CLINICAL INFORMATION: Shortness of breath COMPARISON: CT dated 07/06/2022 TECHNIQUE: Frontal view of the chest was obtained. FINDINGS: Healing left lateral fourth and ninth rib fractures with accompanying callus formation. Known healing fractures of the left posterior 9th-11th ribs not well seen radiographically. No right rib fractures. Normal symmetric lung volumes. No parenchymal consolidation. No pleural effusion. No pneumothorax. Cardiomediastinal silhouette and pulmonary vascularity are within normal limits. XR/XR chest 1V IMPRESSION: * No acute pulmonary disease. * Healing left lateral fourth and ninth rib fractures.
[2022-07-08 05:25] VITALS: BP 157/97; PULSE 115; RESP 16; TEMP 36.8; O2SAT 99; BMI 26.6
[2022-07-08 05:43] VITALS: BP 116/79; PULSE 93; RESP 19; O2SAT 100
[2022-07-08 05:45] LABS: Appearance Urine Clear; Color Urine Yellow; Glucose Urine UA Negative (Negative); Leukocyte Esterase Urine Negative (Negative); Nitrite Urine Negative (Negative); Urine Blood Negative (Negative); Urine Ketones Negative (Negative); Urine Protein Negative (Neg-Trace)
[2022-07-08 05:47] LABS: UPreg QC Valid YES; Urine Pregnancy NEGATIVE (NEGATIVE)
[2022-07-08 05:59] LABS: COVID-19 Test Negative (Negative); IDNOW Serial# 08D9AD1C; IDNOW Serial# BCCEAD1C; Influenza A Negative (Negative); Influenza B2 Negative (Negative)
--- NOTE | 2022-07-08 06:53 | PC.NURSE ---
Provider at bedside for evaluation.
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
[2022-07-08 07:06] VITALS: BP 123/81; PULSE 84; RESP 16; O2SAT 99
[2022-07-08 07:23] VITALS: PULSE 83; RESP 18; O2SAT 100
[2022-07-08] MEDS: Albuterol Sulfate (0.083%) 2.5 MG/3 ML VIAL.NEB 5 MG INHALE (07:23)
--- NOTE | 2022-07-08 07:37 | PC.NURSE ---
ASSUMED CARE OF PT AT 0700. PT SEEN BY PROVIDER AND IS NOW CLEARED FOR DISCHARGE. PT RECEIVING NEB TX AT THIS TIME.
== END 2022-07-08 07:55 | disposition home or self-care (01) ==
PROVIDERS: Emergency Provider Emergency Medicine Emergency Medical Services; PCP Internal Medicine
DX: J45.901 Unspecified asthma with (acute) exacerbation (principal); R07.89 Other chest pain; Z20.822 Contact with and (suspected) exposure to COVID-19; R06.02 Shortness of breath; F17.210 Nicotine dependence, cigarettes, uncomplicated; F12.90 Cannabis use, unspecified, uncomplicated
CPT/HCPCS: 71045; 81003; 81025; 87502; 87635; 94640; 99284; 99285

== ENCOUNTER → 2022-10-13 08:56 | Outpatient (BNVA) | payer OTHER, SELFPAY | PROVIDERS: PCP Internal Medicine; Visit Provider Internal Medicine Pulmonary Disease | DX: J44.9 Chronic obstructive pulmonary disease, unspecified (principal); J45.50 Severe persistent asthma, uncomplicated; J30.89 Other allergic rhinitis; F17.210 Nicotine dependence, cigarettes, uncomplicated | CPT/HCPCS: 99212 ==

== ENCOUNTER 2023-01-05 10:06 | Outpatient (AMB) | payer OTHER, SELFPAY ==
[2023-01-05 10:07] VITALS: BP 117/70; PULSE 93; O2SAT 96; BMI 27.0
--- NOTE | 2023-01-05 10:07 | A.OFFVIS_ITS ---
Intake Vital Signs 01/05/23 10:07 Height 4 ft 9 in Weight 124 lb 8.979 oz BMI 27.0 BP 117/70 Blood Pressure Location Rt brachial Position Sitting Pulse 93 Pulse Source Doppler Pulse Oximetry (%) 96 Oxygen Delivery Method Room Air Intake Visit Reasons: COPD Allergies No Known Allergies Allergy (Verified 01/05/23 10:11) HPI COPD HPI Details 42-year-old lady, active 20+ pack-year s moker, followed for underlying severe persistent asthma.? Patient's symptoms are well controlled on Dupixent, Symbicort, duo nebs, and albuterol MDI. She complains an acute exacerbation this time symptomatic with cough productive of brownish sputum and wheezing. [facility] Medical History (Updated 07/09/22 @ 00:00 by Josefina Lawson) Asthma Social History (Updated 01/05/23 @ 10:11 by IRVIN Mcdonald) Household Members: Family Housing: Apartment Do you presently have visiting nurse or other home services: No Patient Tobacco Use Status: Current someday Tobacco user Tobacco use type: Cigarette Cigarettes Per Day: 10 Second Hand Smoke Exposure: No Substance Use Type: Marijuana service: No Review of Systems Const Denies daytime sleepiness, Denies excessive sweating, Denies fatigue, Denies fever(s), Denies lethargy, Denies malaise, Denies night sweats, Denies snoring and Denies weight loss Eyes Denies blurry vision and Denies itchy eyes ENT Denies nasal congestion, Denies post nasal drip, Denies sinus pain, Denies sinus pressure and Denies other ( Thrush) Card Denies chest pain, Denies pedal edema, Denies dyspnea, Denies orthopnea and Denies paroxysmal nocturnal dyspnea Resp Reports cough, Denies hemoptysis, Reports excessive phlegm production, Denies dyspnea, Denies snoring and Reports wheezing GI Denies abdominal pain and Denies heartburn Musc Denies myalgias, Denies arthralgias and Denies joint swelling Skin/Breast Denies rash Neuro Denies memory loss and Denies seizure-like activity Psych Denies abnormal sleep pattern, Denies anxiety and Denies memory loss Endo Denies excessive sweating, Denies fatigue and Denies heat intolerance Rafiq/Lymph Denies easy bruising Aller/Immun Denies itchy eyes, Denies seasonal rhinorrhea and Reports wheezing Physical Exam Vital Signs: Last Vital Signs Pulse 93 01/05/23 10:07 BP 117/70 01/05/23 10:07 Pulse Ox 96 01/05/23 10:07 Oxygen Delivery Method Room Air 01/05/23 10:07 BMI result Body Mass Index 27.0 Const General: no acute distress and alert Nutritional Appearance: not obese Orientation/consciousness: Other orientation findings ( oriented) HEENT Head: Yes atraumatic Eyes General: appearance normal, both eyes and all related structures Sclerae: sclerae normal EOM: EOMs intact bilaterally Neck Neck: Yes supple Lymphatic: no lymphadenopathy noted Resp Effort & Inspection: normal respiratory effort and no use of accessory muscles Auscultation: wheezes expiratory wheezes (Mild bilateral) Cardio Rate: regular rate Rhythm: regular rhythm Heart sounds: no gallops, no murmurs and no rubs Skin General skin exam: other ( warm) Extrem General: No clubbing, No cyanosis and No edema Assessment & Plan Assessment & Plan (1) Asthma: Code(s): J45.909 - Unspecified asthma, uncomplicated Plan: Baseline well controlled on Dupixent, Advair, duo nebs, and albuterol MDI. Continue current regimen. Now with an acute exacerbation, will treat with a course of prednisone and azithromycin. (2) Environmental and seasonal allergies: Code(s): J30.89 - Other allergic rhinitis Plan: Well controlled on Dupixent. Continue current regimen. Medications: New prednisone 40 mg (2 x 20 mg) PO DAILY 10 tabs 0RF 5 days azithromycin For 250 mg dose pack: take 500 mg today (day 1), then 250 mg for 4 days (days 2-5) PO 6 tabs 0RF Coding Level of Care Code Est Pt Level 4 (76551) Diagnoses Asthma J45.909 Environmental and seasonal allergies J30.89
== END 2023-01-05 10:30 | disposition home or self-care (01) ==
PROVIDERS: PCP Internal Medicine; Visit Provider Internal Medicine Pulmonary Disease
DX: J45.909 Unspecified asthma, uncomplicated (principal); J30.89 Other allergic rhinitis
CPT/HCPCS: 99214

== ENCOUNTER → 2023-01-05 10:06 | Outpatient (BNVA) | payer OTHER, SELFPAY | PROVIDERS: PCP Internal Medicine; Visit Provider Internal Medicine Pulmonary Disease | DX: J45.909 Unspecified asthma, uncomplicated (principal); J30.89 Other allergic rhinitis | CPT/HCPCS: 99212 ==

== ENCOUNTER 2023-05-11 14:19 | Outpatient (AMB) | payer OTHER, SELFPAY ==
[2023-05-11 14:21] VITALS: BP 107/72; PULSE 109; O2SAT 95; BMI 27.3
--- NOTE | 2023-05-11 14:21 | MHC.OFFVIS ---
Intake Vital Signs 05/11/23 14:21 Height 4 ft 9 in Weight 125 lb 15.157 oz BMI 27.3 BP 107/72 Blood Pressure Location Rt brachial Position Sitting Pulse 109 H Pulse Oximetry (%) 95 Oxygen Delivery Method Room Air Intake Visit Reasons: COPD Allergies No Known Allergies Allergy (Verified 05/11/23 14:22) HPI COPD HPI Details 42-year-old lady, active 20+ pack-year smoker, followed for underlying severe persistent asthma.? Patient's symptoms are baseline well controlled on Dupixent, Symbicort, duo nebs, and albuterol MDI. She does complain of an acute exacerbation symptomatic with cough productive of greenish sputum and wheezing. [facility] Medical History (Updated 07/09/22 @ 00:00 by Josefina Lawson) Asthma Social History Household Members: Family Housing: Apartment Do you presently have visiting nurse or other home services: No Patient Tobacco Use Status: Current someday Tobacco user Tobacco use type: Cigarette Cigarettes Per Day: 10 Second Hand Smoke Exposure: No Substance Use Type: Marijuana service: No Review of Systems Const Denies daytime sleepiness, Denies excessive sweating, Denies fatigue, Denies fever(s), Denies lethargy, Denies malaise, Denies night sweats, Denies snoring and Denies weight loss Eyes Denies blurry vision and Denies itchy eyes ENT Denies nasal congestion, Denies post nasal drip, Denies sinus pain, Denies sinus pressure and Denies other ( Thrush) Card Denies chest pain, Denies pedal edema, Denies dyspnea, Denies orthopnea and Denies paroxysmal nocturnal dyspnea Resp Reports cough, Denies hemoptysis, Reports excessive phlegm production, Denies dyspnea, Denies snoring and Reports wheezing GI Denies abdominal pain and Denies heartburn Musc Denies myalgias, Denies arthralgias and Denies joint swelling Skin/Breast Denies rash Neuro Denies memory loss and Denies seizure-like activity Psych Denies abnormal sleep pattern, Denies anxiety and Denies memory loss Endo Denies excessive sweating, Denies fatigue and Denies heat intolerance Rafiq/Lymph Denies easy bruising Aller/Immun Denies itchy eyes, Denies seasonal rhinorrhea and Reports wheezing Physical Exam Vital Signs: Last Vital Signs Pulse 109 H 05/11/23 14:21 BP 107/72 05/11/23 14:21 Pulse Ox 95 05/11/23 14:21 Oxygen Delivery Method Room Air 05/11/23 14:21 BMI result Body Mass Index 27.3 Const General: no acute distress and alert Nutritional Appearance: not obese Orientation/consciousness: Other orientation findings ( oriented) HEENT Head: Yes atraumatic Eyes General: appearance normal, both eyes and all related structures Sclerae: sclerae normal EOM: EOMs intact bilaterally Neck Neck: Yes supple Lymphatic: no lymphadenopathy noted Resp Effort & Inspection: normal respiratory effort and no use of accessory muscles Auscultation: wheezes expiratory wheezes (Bilateral) Cardio Rate: regular rate Rhythm: regular rhythm Heart sounds: no gallops, no murmurs and no rubs Skin General skin exam: other ( warm) Extrem General: No clubbing, No cyanosis and No edema Assessment & Plan Assessment & Plan (1) Asthma: Code(s): J45.909 - Unspecified asthma, uncomplicated Plan: Baseline controlled on Dupixent, Symbicort, duo nebs, and albuterol MDI. Continue current regimen. Now with bronchitic exacerbation, will treat with a course of Augmentin and prednisone. (2) Environmental and seasonal allergies: Code(s): J30.89 - Other allergic rhinitis Plan: Well controlled on Dupixent. Continue current regimen. Medications: New prednisone 40 mg (2 x 20 mg) PO DAILY 14 tabs 0RF amoxicillin-pot clavulanate 875-125 mg 1 tab PO BID 20 tabs 0RF Refilled ipratropium-albuterol 0.5 mg-3 mg(2.5 mg base)/3 mL 3 mL inhalation Q4H PRN 360 mL 6RF shortness of breath or wheezing 30 days Discontinued albuterol sulfate Discontinued Reason: Doctor's Order 2.5 mg (3 mL) inhalation Q4-6H PRN 180 mL 6RF shortness of breath or wheezing 30 days prednisone Discontinued Reason: Doctor's Order 40 mg (2 x 20 mg) PO DAILY 10 tabs 0RF 5 days azithromycin Discontinued Reason: Doctor's Order For 250 mg dose pack: take 500 mg today (day 1), then 250 mg for 4 days (days 2-5) PO 6 tabs 0RF Coding Level of Care Code Est Pt Level 4 (17496) Diagnoses Asthma J45.909 Environmental and seasonal allergies J30.89
== END 2023-05-11 14:33 | disposition home or self-care (01) ==
PROVIDERS: PCP Internal Medicine; Visit Provider Internal Medicine Pulmonary Disease
DX: J45.909 Unspecified asthma, uncomplicated (principal); J30.89 Other allergic rhinitis
CPT/HCPCS: 99214

== ENCOUNTER → 2023-05-11 14:19 | Outpatient (BNVA) | payer OTHER, SELFPAY | PROVIDERS: PCP Internal Medicine; Visit Provider Internal Medicine Pulmonary Disease | DX: J45.50 Severe persistent asthma, uncomplicated (principal); J30.89 Other allergic rhinitis | CPT/HCPCS: 99212 ==

== ENCOUNTER 2023-08-26 15:49 | Outpatient (AMB) | payer OTHER, SELFPAY ==
[2023-08-26 15:51] VITALS: BP 112/62; PULSE 99; O2SAT 97; BMI 27.4
--- NOTE | 2023-08-26 15:51 | MHC.OFFVIS ---
Vital Signs 08/26/23 15:51 Height 4 ft 9 in Weight 126 lb 12.253 oz BMI 27.4 BP 112/62 Blood Pressure Location Rt brachial Position Sitting Pulse 99 Pulse Source Doppler Pulse Oximetry (%) 97 Oxygen Delivery Method Room Air Intake Visit Reasons: productive cough/wheeze Allergies No Known Allergies Allergy (Verified 08/26/23 15:55) HPI HPI productive cough/wheeze: Details: 42-year-old lady, active 20+ pack-year smoker, followed for underlying severe persistent asthma.? Patient's symptoms are baseline well controlled on Dupixent, Symbicort, duo nebs, and albuterol MDI. Today she comes complain of acute exacerbation after a viral infection that she had 1 week prior, now symptomatic with cough productive of thick sputum and wheezing. [facility] Medical History (Updated 07/09/22 @ 00:00 by Josefina Lawson) Asthma Social History (Updated 08/26/23 @ 15:57 by Alejandra Browning [facility]) Household Members: Family Housing: Apartment Do you presently have visiting nurse or other home services: No Patient Tobacco Use Status: Current someday Tobacco user Tobacco use type: Cigarette Cigarettes Per Day: 15 Second Hand Smoke Exposure: No Substance Use Type: Marijuana service: No Review of Systems Const Denies daytime sleepiness, Denies excessive sweating, Denies fatigue, Denies fever(s), Denies lethargy, Denies malaise, Denies night sweats, Denies snoring and Denies weight loss Eyes Denies blurry vision and Denies itchy eyes ENT Denies nasal congestion, Denies post nasal drip, Denies sinus pain, Denies sinus pressure and Denies other ( Thrush) Card Denies chest pain, Denies pedal edema, Denies dyspnea, Denies orthopnea and Denies paroxysmal nocturnal dyspnea Resp Reports cough, Denies hemoptysis, Reports excessive phlegm production, Denies dyspnea, Denies snoring and Reports wheezing GI Denies abdominal pain and Denies heartburn Musc Denies myalgias, Denies arthralgias and Denies joint swelling Skin/Breast Denies rash Neuro Denies memory loss and Denies seizure-like activity Psych Denies abnormal sleep pattern, Denies anxiety and Denies memory loss Endo Denies excessive sweating, Denies fatigue and Denies heat intolerance Rafiq/Lymph Denies easy bruising Aller/Immun Denies itchy eyes, Denies seasonal rhinorrhea and Reports wheezing Physical Exam Vital Signs: Last Vital Signs Pulse 99 08/26/23 15:51 BP 112/62 08/26/23 15:51 Pulse Ox 97 08/26/23 15:51 Oxygen Delivery Method Room Air 08/26/23 15:51 BMI result Body Mass Index 27.4 Const General: no acute distress and alert Nutritional Appearance: not obese Orientation/consciousness: Other orientation findings ( oriented) HEENT Head: Yes atraumatic Eyes General: appearance normal, both eyes and all related structures Sclerae: sclerae normal EOM: EOMs intact bilaterally Neck Neck: Yes supple Lymphatic: no lymphadenopathy noted Resp Effort & Inspection: normal respiratory effort and no use of accessory muscles Auscultation: wheezes expiratory wheezes (Bilateral) Cardio Rate: regular rate Rhythm: regular rhythm Heart sounds: no gallops, no murmurs and no rubs Skin General skin exam: other ( warm) Extrem General: No clubbing, No cyanosis and No edema Assessment & Plan Assessment & Plan (1) Bronchitis: Code(s): J40 - Bronchitis, not specified as acute or chronic Category: Medical Plan: Now with an acute exacerbation, will treat with a course of prednisone and Levaquin. (2) Asthma: Code(s): J45.909 - Unspecified asthma, uncomplicated Category: Medical Plan: Baseline well controlled on Dupixent, Advair, duo nebs, and albuterol MDI. Continue current regimen. (3) Environmental and seasonal allergies: Code(s): J30.89 - Other allergic rhinitis Category: Medical Plan: Well controlled on Dupixent. Continue current regimen. Medications: New levofloxacin 750 mg PO DAILY 7 tabs 0RF Refilled prednisone 40 mg (2 x 20 mg) PO DAILY 14 tabs 0RF Coding Level of Care Code Est Pt Level 4 (39337) Diagnoses Bronchitis J40 Asthma J45.909 Environmental and seasonal allergies J30.89
== END 2023-08-26 16:04 | disposition home or self-care (01) ==
PROVIDERS: PCP Internal Medicine; Visit Provider Internal Medicine Pulmonary Disease
DX: J40 Bronchitis, not specified as acute or chronic (principal); J30.89 Other allergic rhinitis
CPT/HCPCS: 99214

== ENCOUNTER → 2023-08-26 15:49 | Outpatient (BNVA) | payer OTHER, SELFPAY | PROVIDERS: PCP Internal Medicine; Visit Provider Internal Medicine Pulmonary Disease | DX: J45.50 Severe persistent asthma, uncomplicated (principal); J40 Bronchitis, not specified as acute or chronic; J30.89 Other allergic rhinitis; Z79.899 Other long term (current) drug therapy | CPT/HCPCS: 99212 ==

== ENCOUNTER 2023-09-04 19:31 | Emergency (ER) | payer OTHER, SELFPAY ==
--- NOTE | ~2023-09-04 | XR_ITS ---
EXAMINATION: XR CHEST CLINICAL INFORMATION: Shortness of breath COMPARISON: Chest radiograph 07/08/2022. TECHNIQUE: Frontal view of the chest was obtained. FINDINGS: Clear lungs. No pleural effusion or pneumothorax. Cardiomediastinal silhouette is unchanged. Remote, healed left lateral fifth and sixth rib fractures. XR/XR chest 1V IMPRESSION: No acute cardiopulmonary abnormality.
--- NOTE | ~2023-09-04 | CT_ITS ---
EXAMINATION: CT ABDOMEN AND PELVIS WITHOUT CONTRAST CLINICAL INFORMATION: Left lower quadrant pain. History of diverticulitis. COMPARISON: 05/11/2022 TECHNIQUE: Multidetector volumetric imaging was performed from the superior aspect of the liver through the pubic symphysis. Sagittal and coronal reformatted images were obtained on the technologist's workstation. This CT examination was performed using dose optimization techniques as appropriate, variously including the following: *Automated exposure control *Adjustment of mA and/or kV according to patient size (this includes techniques or standardized protocols for targeted exams where dose is matched to indication/reason for exam; i.e. extremities or head) *Use of iterative reconstruction technique DLP: 424 mGy-cm FINDINGS: LUNG BASES: The visualized lung bases are unremarkable. LIVER, GALLBLADDER, AND BILIARY TREE: The liver is normal in size, shape, and attenuation. No focal hepatic lesion or biliary ductal dilatation is present. The gallbladder is contracted with no evidence of radiopaque gallstones, gallbladder wall thickening, or obvious pericholecystic inflammatory changes. PANCREAS: Unremarkable. SPLEEN: Unremarkable. ADRENAL GLANDS: Unremarkable. KIDNEYS AND URETERS: The kidneys are normal in size, shape, and attenuation. No hydronephrosis, hydroureter, or calculi seen. No perinephric stranding. BLADDER: Unremarkable. GASTROINTESTINAL TRACT: Focal peridiverticular fat stranding in the sigmoid anteriorly is consistent with acute diverticulitis superimposed upon moderate to severe diverticulosis. No surrounding fluid collections. No intraperitoneal free fluid. Stomach, small bowel, and colon are normal in caliber. ABDOMINAL WALL: No significant hernia is appreciated. LYMPH NODES: Normal. VASCULAR: Unremarkable. PELVIC VISCERA: The uterus and adnexa are unremarkable. OSSEOUS STRUCTURES: Mild osteoarthritis in the hips. No acute osseous abnormalities CT/CT abdomen pelvis wo IV con IMPRESSION: Acute uncomplicated sigmoid diverticulitis.
[2023-09-04 19:43] VITALS: BP 126/74; PULSE 104; RESP 16; TEMP 36.7; O2SAT 94; BMI 26.3
--- NOTE | 2023-09-04 19:48 | ED.GENADULT ---
HPI - General Adult General Chief complaint: General Medical Stated complaint: asthma COPD, diverticulitis flare up Time Seen by Provider: 09/04/23 21:16 Source: patient Mode of arrival: ambulatory Limitations: no limitations History of Present Illness HPI narrative: 43-year-old female came in for complaint of left lower abdominal pain for 2 days, patient had history of diverticulitis and constipation. No fever, no chills, no nausea, vomiting. Patient also have a history of bronchial asthma ran out her albuterol for nebulizer home came in with difficulty breathing and wheezing, nonproductive cough. Related Data Home Medications ?Medication ?Instructions ?Recorded ?Confirmed benzonatate 200 mg capsule 200 mg PO TID PRN 05/02/22 05/02/22 cyclobenzaprine 10 mg tablet 1 tab PO BID PRN pain 05/02/22 05/02/22 hydroxyzine pamoate 25 mg capsule 1 cap PO BID PRN Anxiety 05/02/22 05/02/22 fluticasone 250 mcg-salmeterol 50 1 ea inhalation BID 08/26/23 mcg/dose blistr powdr for inhalation (Advair Diskus) Previous Rx's ?Medication ?Instructions ?Recorded famotidine 20 mg tablet (Pepcid) 20 mg PO DAILY #14 tabs 05/03/22 nicotine 14 mg/24 hr daily 14 mg transdermal DAILY #30 ea 05/03/22 transdermal patch ibuprofen 600 mg tablet 600 mg PO Q6H PRN fever or pain 05/11/22 #30 tabs tramadol 50 mg tablet 50 mg PO Q6H PRN pain #20 tabs 05/11/22 dupilumab 300 mg/2 mL subcutaneous 300 mg (2 mL) subcut Q2W #4 mL 04/01/23 pen injector (Dupixent) ipratropium 0.5 mg-albuterol 3 mg 3 ml inhalation Q4H PRN shortness 05/13/23 (2.5 mg base)/3 mL nebulization of breath or wheezing 30 days #360 soln mL prednisone 20 mg tablet 40 mg (2 x 20 mg) PO DAILY #14 tabs 08/26/23 amoxicillin 875 mg-potassium 1 tab PO BID #20 tabs 08/31/23 clavulanate 125 mg tablet albuterol sulfate 90 mcg/actuation 2 puff PO Q4-6H PRN shortness of 09/03/23 aerosol inhaler (Ventolin HFA) breath or wheezing #18 ea albuterol sulfate 2.5 mg/3 mL 2.5 mg (3 mL) inhalation QID PRN 09/04/23 (0.083 %) solution for nebulization shortness of breath or wheezing #75 mL amoxicillin 875 mg-potassium 1 tab PO BID #20 tabs 09/04/23 clavulanate 125 mg tablet prednisone 20 mg tablet 20 mg PO BID #10 tabs 09/04/23 Allergies Allergy/AdvReac Type Severity Reaction Status Date / Time No Known Allergies Allergy Verified 09/04/23 19:46 Review of Systems Review of Systems: All other systems are reviewed and are negative Constitutional: Reports as per HPI and Reports no additional constitutional complaints Eyes: Reports as per HPI and Reports no additional eye complaints Reports system reviewed and no additional complaints, except as documented Cardiovascular: Reports as per HPI and Reports no additional cardiovascular complaints Respiratory: Reports as per HPI and Reports no additional respiratory complaints Gastrointestinal: Reports as per HPI and Reports no additional gastrointestinal complaints Genitourinary: Reports no additional female genitourinary complaints Musculoskeletal: Reports no additional musculoskeletal complaints Skin/Breast: Reports system reviewed and no additional complaints, except as docu Psychiatric: Reports no additional psychiatric complaints Endocrine: Reports no additional endocrine complaints Hematologic/Lymphatic: Reports no additional hematologic/lymphatic complaints Allergic/Immunologic: Reports no additional allergic/immunologic complaints Reports system reviewed and no additional complaints, except as documented and Reports Abnormal speech present [facility], [facility] Past Medical History Medical History Asthma Social History Social History Household Members: Family Housing: Apartment Do you presently have visiting nurse or other home services: No Patient Tobacco Use Status: Current someday Tobacco user Tobacco use type: Cigarette Cigarettes Per Day: 15 Second Hand Smoke Exposure: No Substance Use Type: Marijuana Advance Directives: No Advance Directives Information Provided: No Do you have a plan to hurt others: No Plan service: No Physical Exam ED Vital Signs: Vital Signs - 24 hr 09/04/23 19:43 09/04/23 20:27 09/04/23 21:58 Temperature 98.1 F 97.7 F Pulse Rate 104 H 93 95 Respiratory Rate 16 18 16 Blood Pressure 126/74 100/53 L Pulse Oximetry 94 94 Oxygen Delivery Method Room Air Room Air BMI result Body Mass Index 26.3 Vital signs have been reviewed and appear to be correct. Blood pressure elevated. Heart rate normal. Respiratory rate normal. Temperature normal. Oxygen saturation normal. Appearance: Alert. Oriented X3. No acute distress. Head: Normal external exam. Normocephalic. Atraumatic. No Perez signs noted. No raccoon eyes noted Eyes: PERRLA. EOMI. Conjunctiva and sclera normal. Eyelids normal. ENT: TM's Normal. Pharynx normal. Uvula midline. Moist mucous membranes. No trismus noted. No drooling noted. No muffled voice noted. Neck: Normal inspection. Neck supple. FROM. No adenopathy. Thyroid Normal. No meningeal signs. No neck mass noted. CVS: Normal heart rate and rhythm. Heart sound normal. No murmurs noted. Pulses normal throughout. Respiratory: No respiratory distress. Painless inspiration. Breath sounds normal. Bilateral diffuse expiratory wheezing with prolonged expiration with bilateral diminished of breathing sounds bilaterally, Chest nontender. Abdomen: Soft and nontender. Bowel sounds normal in all 4 quadrants. No distention noted. No organomegaly noted. No visible injury noted. Back: No CVA tenderness. Full range of motion noted. Skin: Skin warm and dry. Normal skin color. Normal skin turgor. No rashes/lesions/lacerations noted. Extremities: No lower extremity edema. Extremities exhibit normal range of motion. Extremities nontender. Neuro: Oriented X 3. Cranial nerve exam: II-XII are grossly intact No motor deficit. No sensory deficit. Reflexes normal. Course Course Course Narrative: RME performed by Carmen Elam PA-C. Patient is a 43 year old assigned female at presenting to the emergency department requesting a breathing treatment and complaining of now resolved abdominal pain. Patient states that she is out of the liquid for her nebulizer and also had abdominal pain the other days she would like to make sure is OK. Detailed physical exam and review of systems are deferred to the speech and language clinician. EKG, labs, imaging, and swabs ordered. Patient placed back in the waiting room pending room availability and results. Reevaluation(s) Reevaluation #1: 1. Acute asthma exacerbation patient ran out of albuterol for the nebulizer will refill, will also start the patient on 5 days of prednisone. 2. Abdominal pain CT consistent with acute sigmoid diverticulitis will start the patient on Augmentin along with the prednisone for the asthma should help patient's symptoms patient was instructed to follow-up with her photographic colorist. Time: 23:45 Medications Administered Discontinued Medications Generic Name Dose Route Start Last Admin Trade Name Freq PRN Reason Stop Dose Admin Albuterol Sulfate 5 mg/ 0 mg 09/04/23 20:23 09/04/23 20:26 Albuterol/Ipratropium 3 ml INHALE 09/04/23 20:24 2.5 each ONCE ONE Administration Medical Decision Making Differential Diagnosis Differential Diagnoses: The differential diagnosis associated with the presentation includes (Acute asthma exacerbation, pneumonia, pneumothorax, pleural effusion, electrolyte derangement, severe anemia.) Admission/Observation Consideration of admission/observation: Escalation of care including admission/observation considered Lab Data MDM Lab Attestation statement: I reviewed the patient's lab results. 09/04/23 20:02 09/04/23 20:02 Labs: Lab Results 09/04/23 09/04/23 Range/Units 20:02 21:18 WBC 6.7 (4.8-10.8) X10*3/uL RBC 4.25 (4.20-5.50) X10*6/uL Hgb 13.2 (12.0-16.0) g/dl Hct 37.5 (37.0-47.0) % MCV 88.2 (80.0-98.0) fL MCH 31.1 (27.0-33.0) pg MCHC 35.2 H (31.0-35.0) g/dl RDW 14.8 (11.0-16.0) % Plt Count 306 D (160-400) X10*3/uL MPV 9.5 (9.4-12.3) fL Immature Gran % (Auto) 0.1 (0.0-0.4) % Neut % (Auto) 39.1 L (45-73) % Lymph % (Auto) 51.4 H (20-40) % [place] % (Auto) 6.0 (2-11) % Eos % (Auto) 2.7 (0-4) % Baso % (Auto) 0.7 (0-2) % Lymph # (Auto) 3.4 (1.2-4.9) X10*3/uL [place] # (Auto) 0.4 (0.1-1.2) X10*3/uL Eos # (Auto) 0.2 (0.0-0.4) X10*3/uL Baso # (Auto) 0.1 (0.0-0.2) X10*3/uL Abs Immat Gran (auto) 0.01 (0.00-0.03) X10*3/uL Absolute Neuts (auto) 2.6 (2.0-8.3) x10*3/uL Absolute Nucleated RBC 0.000 (0.0-0.012) X10*3/uL Nucleated RBC % (auto) 0.0 (0.0-0.2) /100WBC PT 10.2 L (11.1-13.3) SEC INR 0.8 L (0.9-1.1) APTT 29.9 (26.0-36.8) SEC Sodium 141 (135-145) mmol/L Potassium 3.8 (3.3-5.1) mmol/L Chloride 104 (96-108) mmol/L Carbon Dioxide 25 (22-29) mmol/L Anion Gap 16 (12-20) BUN 12 (9-16) mg/dL Creatinine 0.76 (0.5-1.4) mg/dL Estim Creat Clear Calc 69.9 Estimated GFR > 60 Random Glucose 128 H (60-115) mg/dL Calcium 9.0 (8.4-10.2) mg/dL Magnesium 2.0 (1.6-2.6) mg/dL Total Bilirubin 0.3 (0.0-1.0) mg/dL AST 9 (5-31) U/L ALT 11 (0-31) U/L Alkaline Phosphatase 73 (39-117) U/L Troponin I High Sens < 2.7 (<3.5-17.0) ng/L Total Protein 6.8 (6.5-8.0) g/dL Albumin 3.9 (3.5-5.0) g/dL Urine Color Yellow Urine Appearance Clear Urine pH 5.0 (5.0-9.0) Ur Specific [place] >= 1.030 H (1.005-1.025) Urine Protein Trace (Neg-Trace) mg/dL Urine Glucose (UA) Negative (Negative) mg/dL Urine Ketones Trace (Negative) mg/dL Urine Blood Negative (Negative) Urine Nitrite Negative (Negative) Ur Leukocyte Esterase Negative (Negative) Influenza Type A (PCR) NEGATIVE (Negative) Influenza Type B (PCR) NEGATIVE (Negative) RSV RNA Qual (PCR) NEGATIVE (Negative) SARS-CoV-2 RNA (RT-PCR) NEGATIVE (Negative) Independent Interpretation I performed an independent interpretation of an: Plain X-Ray (Chest: No acute intrathoracic pathology.) and CT Scan (Acute uncomplicated sigmoid diverticulitis.) Radiology Impression Discussion of test interpretation with radiology: I have reviewed the radiologist's reading. Discharge Plan Discharge Clinical Impression: Acute asthma exacerbation, Abdominal pain, Diverticulitis Patient Disposition: Home, Self-Care Instructions: Asthma (ED) Prescriptions: New prednisone 20 mg tablet 20 mg PO BID Qty: 10 0RF albuterol sulfate 2.5 mg /3 mL (0.083 %) solution for nebulization 2.5 mg inhalation QID PRN (Reason: shortness of breath or wheezing) Qty: 75 0RF amoxicillin-pot clavulanate 875-125 mg tablet 1 tab PO BID Qty: 20 0RF No Action Dupixent Pen 300 mg/2 mL pen injector 300 mg subcut Q2W Qty: 4 12RF ipratropium-albuterol 0.5 mg-3 mg(2.5 mg base)/3 mL solution for nebulization 3 ml inhalation Q4H PRN (Reason: shortness of breath or wheezing) 30 Days Qty: 360 6RF amoxicillin-pot clavulanate 875-125 mg tablet 1 tab PO BID Qty: 20 0RF albuterol sulfate [Ventolin HFA] 90 mcg/actuation HFA aerosol inhaler 2 puff PO Q4-6H PRN (Reason: shortness of breath or wheezing) Qty: 18 6RF tramadol 50 mg tablet 50 mg PO Q6H PRN (Reason: pain) Qty: 20 0RF ibuprofen 600 mg tablet 600 mg PO Q6H PRN (Reason: fever or pain) Qty: 30 0RF cyclobenzaprine 10 mg tablet 1 tab PO BID PRN (Reason: pain) benzonatate 200 mg Capsule 200 mg PO TID hydroxyzine pamoate 25 mg capsule 1 cap PO BID PRN (Reason: Anxiety) nicotine 14 mg/24 hr Patch 24 Hour 14 mg transdermal DAILY Qty: 30 0RF famotidine [Pepcid] 20 mg tablet 20 mg PO DAILY Qty: 14 0RF fluticasone propion-salmeterol [Advair Diskus] 250-50 mcg/dose blister with device 1 ea inhalation BID prednisone 20 mg tablet 40 mg PO DAILY Qty: 14 0RF Print Language: Kinyarwanda
--- NOTE | 2023-09-04 19:49 | ECG_ITS ---
Test Reason : COPD Blood Pressure : / mmHG Vent. Rate : 098 BPM Atrial Rate : 098 BPM P-R Int : 134 ms QRS Dur : 086 ms QT Int : 350 ms P-R-T Axes : 076 038 029 degrees QTc Int : 446 ms Normal sinus rhythm Nonspecific T wave abnormality Abnormal ECG When compared with ECG of 02-MAY-2022 11:57, Nonspecific T wave abnormality now evident in Lateral leads Referred By: Carmen Elam Electronically Signed By:GANGA MATA MD
[2023-09-04 20:06] LABS: MANUAL DIFF FLAG NO
[2023-09-04 20:10] LABS: Basophils Absolute Auto 0.1 X10*3/uL (0.0-0.2); Basophils Percent Auto 0.7 % (0-2); Eosinophils Absolute Auto 0.2 X10*3/uL (0.0-0.4); Eosinophils Percent Auto 2.7 % (0-4); Hematocrit 37.5 % (37.0-47.0); Hemoglobin 13.2 g/dl (12.0-16.0); Imm Gran Abs Auto 0.01 X10*3/uL (0.00-0.03); Imm Gran Pct Auto 0.1 % (0.0-0.4); Lymphocytes Absolute Auto 3.4 X10*3/uL (1.2-4.9); Lymphocytes Percent Auto 51.4 % (20-40); Mean Corpuscular HGB Conc 35.2 g/dl (31.0-35.0); Mean Corpuscular Hemoglobin 31.1 pg (27.0-33.0); Mean Corpuscular Volume 88.2 fL (80.0-98.0); Mean Platelet Volume 9.5 fL (9.4-12.3); Monocytes Absolute Auto 0.4 X10*3/uL (0.1-1.2); Neutrophils Absolute Auto 2.6 x10*3/uL (2.0-8.3); Neutrophils Percent Auto 39.1 % (45-73); Platelet Count 306 X10*3/uL (160-400); Red Blood Count 4.25 X10*6/uL (4.20-5.50); Red Cell Distribution Width 14.8 % (11.0-16.0); White Blood Count 6.7 X10*3/uL (4.8-10.8)
[2023-09-04 20:14] LABS: INTERNATIONAL NORM RATIO 0.8 (0.9-1.1); Prothrombin Time 10.2 SEC (11.1-13.3)
[2023-09-04 20:16] LABS: Partial Thromboplastin Time 29.9 SEC (26.0-36.8)
[2023-09-04 20:24] LABS: Alanine Aminotransferase 11 U/L (0-31); Albumin Level 3.9 g/dL (3.5-5.0); Alkaline Phosphatase 73 U/L (39-117); Anion Gap 16 (12-20); Aspartate Amino Transferase 9 U/L (5-31); Bilirubin Total 0.3 mg/dL (0.0-1.0); Blood Urea Nitrogen 12 mg/dL (9-16); Carbon Dioxide 25 mmol/L (22-29); Chloride 104 mmol/L (96-108); Creatinine Clr Calc Pharmacy 69.9; Estimated Glomerular Filt Rate > 60; Glucose Random 128 mg/dL (60-115); Potassium 3.8 mmol/L (3.3-5.1); Sodium 141 mmol/L (135-145); Total Protein 6.8 g/dL (6.5-8.0)
[2023-09-04] MEDS: Albuterol Sulfate 5 MG, Albuterol/Iprat 2.5/0.5MG 3 ML 3 ML INHALE (20:26)
[2023-09-04 20:27] VITALS: PULSE 93; RESP 18; O2SAT 97
[2023-09-04 20:32] LABS: Troponin-I High Sensitivity < 2.7 ng/L (<3.5-17.0)
[2023-09-04 20:45] LABS: Influenza A PCR NEGATIVE (Negative); Influenza B PCR NEGATIVE (Negative); Resp Syncy Virus RNA Qual PCR NEGATIVE (Negative); SARS COV2 PCR INHOUSE NEGATIVE (Negative)
[2023-09-04 21:40] LABS: Appearance Urine Clear; Glucose Urine UA Negative (Negative); Leukocyte Esterase Urine Negative (Negative); Nitrite Urine Negative (Negative); Specific Gravity - Urine >= 1.030 (1.005-1.025); Urine Blood Negative (Negative); Urine Ketones Trace mg/dL (Negative); Urine Protein Trace mg/dL (Neg-Trace)
[2023-09-04 21:42] LABS: Color Urine Yellow
[2023-09-04 21:58] VITALS: BP 100/53; PULSE 95; RESP 16; TEMP 36.5; O2SAT 94
[2023-09-04 23:59] VITALS: BP 117/93; PULSE 97; RESP 16; TEMP 36.8; O2SAT 99
== END 2023-09-05 | disposition home or self-care (01) ==
PROVIDERS: Physician Assistant Medical; Emergency Provider Emergency Medicine
DX: K57.32 Diverticulitis of large intestine without perforation or abscess without bleeding (principal); J44.9 Chronic obstructive pulmonary disease, unspecified; R94.31 Abnormal electrocardiogram [ECG] [EKG]; J45.901 Unspecified asthma with (acute) exacerbation; R10.32 Left lower quadrant pain; K59.00 Constipation, unspecified; Z11.52 Encounter for screening for COVID-19; Z20.822 Contact with and (suspected) exposure to COVID-19; Z79.899 Other long term (current) drug therapy
CPT/HCPCS: 0241U; 71045; 74176; 80053; 81003; 83735; 84484; 85025; 85610; 85730; 93005; 94640; 99284; 99285

== ENCOUNTER → 2023-09-04 19:49 | Outpatient (BNV) | payer OTHER, SELFPAY | PROVIDERS: Emergency Provider Emergency Medicine; Visit Provider Internal Medicine Cardiovascular Disease | DX: J44.9 Chronic obstructive pulmonary disease, unspecified (principal) | CPT/HCPCS: 93010 ==

== ENCOUNTER 2023-10-20 09:13 | Outpatient (AMB) | payer OTHER, SELFPAY ==
[2023-10-20 09:19] VITALS: BP 122/67; PULSE 93; O2SAT 95; BMI 27.4
--- NOTE | 2023-10-20 09:19 | A.OFFVIS_ITS ---
Vital Signs 10/20/23 09:19 Height 4 ft 9 in Weight 126 lb 12.253 oz BMI 27.4 BP 122/67 Blood Pressure Location Rt brachial Position Sitting Pulse 93 Pulse Source Doppler Pulse Oximetry (%) 95 Oxygen Delivery Method Room Air Intake Visit Reasons: COPD Allergies No Known Allergies Allergy (Verified 10/20/23 09:25) HPI HPI COPD: Details: 42-year-old lady, active 20+ pack-year smoker, followed for underlying severe persistent asthma/COPD overlap syndrome.? Patient's symptoms were previously w ell controlled on Dupixent, Advair, duo nebs, and albuterol MDI, however with presybeterian of hot/humid weather she is experiencing more symptoms. She denies acute exacerbations. [facility] Medical History Asthma Social History Household Members: Family Housing: Apartment Do you presently have visiting nurse or other home services: No Unable to assess alcohol history related to: Unknown Patient Tobacco Use Status: Current someday Tobacco user Tobacco use type: Cigarette Cigarettes Per Day: 15 Second Hand Smoke Exposure: No Substance Use Type: Marijuana service: No Review of Systems Const Denies daytime sleepiness, Denies excessive sweating, Denies fatigue, Denies fever(s), Denies lethargy, Denies malaise, Denies night sweats, Denies snoring and Denies weight loss Eyes Denies blurry vision and Denies itchy eyes ENT Denies nasal congestion, Denies post nasal drip, Denies sinus pain, Denies sinus pressure and Denies other ( Thrush) Card Denies chest pain, Denies pedal edema, Denies dyspnea, Denies orthopnea and Denies paroxysmal nocturnal dyspnea Resp Denies cough, Denies hemoptysis, Denies excessive phlegm production, Denies dyspnea, Denies snoring and Denies wheezing GI Denies abdominal pain and Denies heartburn Musc Denies myalgias, Denies arthralgias and Denies joint swelling Skin/Breast Denies rash Neuro Denies memory loss and Denies seizure-like activity Psych Denies abnormal sleep pattern, Denies anxiety and Denies memory loss Endo Denies excessive sweating, Denies fatigue and Denies heat intolerance Rafiq/Lymph Denies easy bruising Aller/Immun Denies itchy eyes, Denies seasonal rhinorrhea and Denies wheezing Physical Exam Vital Signs: Last Vital Signs Pulse 93 10/20/23 09:19 BP 122/67 10/20/23 09:19 Pulse Ox 95 10/20/23 09:19 Oxygen Delivery Method Room Air 10/20/23 09:19 BMI result Body Mass Index 27.4 Const General: no acute distress and alert Nutritional Appearance: not obese Orientation/consciousness: Other orientation findings ( oriented) HEENT Head: Yes atraumatic Eyes General: appearance normal, both eyes and all related structures Sclerae: sclerae normal EOM: EOMs intact bilaterally Neck Neck: Yes supple Lymphatic: no lymphadenopathy noted Resp Effort & Inspection: normal respiratory effort and no use of accessory muscles Auscultation: clear to auscultation bilaterally Cardio Rate: regular rate Rhythm: regular rhythm Heart sounds: no gallops, no murmurs and no rubs Skin General skin exam: other ( warm) Extrem General: No clubbing, No cyanosis and No edema Assessment & Plan Assessment & Plan (1) Asthma: Code(s): J45.909 - Unspecified asthma, uncomplicated Category: Medical Plan: Suboptimal control on Advair, will switch to Trelegy. Continue Dupixent, duo nebs, and albuterol MDI. (2) Environmental and seasonal allergies: Code(s): J30.89 - Other allergic rhinitis Category: Medical Plan: Well controlled on Dupixent. Continue current regimen. Medications: New llwjejfwsxy-ihhcyrjsm-mgsgwyit 200-62.5-25 mcg (Trelegy Ellipta) 1 inh inha lation DAILY 30 days 1 ea 6RF prednisone 40 mg (2 x 20 mg) PO DAILY 20 tabs 0RF Discontinued prednisone Discontinued Reason: Doctor's Order 20 mg PO BID 10 tabs 0RF amoxicillin-pot clavulanate 875-125 mg Discontinued Reason: Doctor's Order 1 tab PO BID 20 tabs 0RF amoxicillin-pot clavulanate 875-125 mg Discontinued Reason: Doctor's Order 1 tab PO BID 20 tabs 0RF Coding Level of Care Code Est Pt Level 4 (60117) Diagnoses Asthma J45.909 Environmental and seasonal allergies J30.89
== END 2023-10-20 09:39 | disposition home or self-care (01) ==
PROVIDERS: PCP Internal Medicine; Visit Provider Internal Medicine Pulmonary Disease
DX: J45.909 Unspecified asthma, uncomplicated (principal); J30.89 Other allergic rhinitis
CPT/HCPCS: 99214

== ENCOUNTER → 2023-10-20 09:13 | Outpatient (BNVA) | payer OTHER, SELFPAY | PROVIDERS: PCP Internal Medicine; Visit Provider Internal Medicine Pulmonary Disease | DX: J45.50 Severe persistent asthma, uncomplicated (principal); J30.89 Other allergic rhinitis; F17.210 Nicotine dependence, cigarettes, uncomplicated | CPT/HCPCS: 99212 ==

== ENCOUNTER 2024-01-09 12:52 | Emergency (ER) | payer OTHER, SELFPAY ==
[2024-01-09] VITALS (10 sets, daily range): BP systolic 112–170; BP diastolic 68–95; PULSE 75–96; RESP 16–98; TEMP 36.4–37.1; O2SAT 97–100; BMI 27.2
--- NOTE | ~2024-01-09 | XR_ITS ---
EXAMINATION: XR CHEST CLINICAL INFORMATION: Shortness of breath COMPARISON: Chest x-ray September 04, 2023 TECHNIQUE: 2 views of the chest were obtained. FINDINGS: No significant abnormality is noted involving the heart, lungs, mediastinum, bony thorax or soft tissues. XR/XR chest 2V IMPRESSION: Unremarkable examination. Electronically signed by: Levy Valdez MD 01/09/2024 08:31 PM EDT RP
--- NOTE | 2024-01-09 12:59 | ED.DIZZY ---
HPI - Dizziness General Chief Complaint: Dizziness Stated Complaint: Dizzy Time Seen by Provider: 01/09/24 16:31 Source: patient and RN notes reviewed Mode of arrival: ambulatory Limitations: no limitations History of Present Illness ED Provider: Kellee Robin PA-C HPI Narrative: This is a 43-year-old female, with a history of COPD and asthma, who presents emergency department with complaints of dizziness, lightheadedness, wheezing, shortness of breath and headaches for the last 3 days. Patient describes the dizziness as if the room is spinning. She states that the symptoms are intermittent. She states that while she was at [employer] today, she felt another episode of dizziness with wheezing that lasted several seconds and resolved on its own. She states that she notices dizziness when she is walking around. Denies any ringing in her ears. Denies taking any medications at home to treat her current symptoms. She also endorses she has had increased wheezing. Denies any recent travel, hospitalizations or surgeries. No vision changes. Denies any fevers, chills, chest pain, abdominal pain, nausea, vomiting or diarrhea. Denies any other complaints or concerns at this time. MD elicited complaint: dizziness Severity: moderate Description: room spinning History of similar symptoms: No Exacerbating factors: movement/ambulation Relieving factors: remaining still Associated symptoms: denies other symptoms Related Data Home Medications ?Medication ?Instructions ?Recorded ?Confirmed benzonatate 200 mg capsule 200 mg PO TID PRN 05/02/22 05/02/22 cyclobenzaprine 10 mg tablet 1 tab PO BID PRN pain 05/02/22 05/02/22 hydroxyzine pamoate 25 mg capsule 1 cap PO BID PRN Anxiety 05/02/22 05/02/22 Previous Rx's ?Medication ?Instructions ?Recorded famotidine 20 mg tablet (Pepcid) 20 mg PO DAILY #14 tabs 05/03/22 nicotine 14 mg/24 hr daily 14 mg transdermal DAILY #30 ea 05/03/22 transdermal patch ibuprofen 600 mg tablet 600 mg PO Q6H PRN fever or pain 05/11/22 #30 tabs tramadol 50 mg tablet 50 mg PO Q6H PRN pain #20 tabs 05/11/22 dupilumab 300 mg/2 mL subcutaneous 300 mg (2 mL) subcut Q2W #4 mL 04/01/23 pen injector (Dupixent) albuterol sulfate 90 mcg/actuation 2 puff PO Q4-6H PRN shortness of 09/03/23 aerosol inhaler (Ventolin HFA) breath or wheezing #18 ea albuterol sulfate 2.5 mg/3 mL 2.5 mg (3 mL) inhalation QID PRN 09/05/23 (0.083 %) solution for nebulization shortness of breath or wheezing #75 mL prednisone 20 mg tablet 40 mg (2 x 20 mg) PO DAILY #20 tabs 10/20/23 fluticasone furoate 200 1 inh inhalation DAILY 30 days #1 11/14/23 mcg-vilanterol 25 mcg/dose ea inhalation powder (Breo Ellipta) umeclidinium 62.5 mcg/actuation 1 inh inhalation DAILY #1 ea 11/14/23 blister powder for inhalation (Incruse Ellipta) ipratropium 0.5 mg-albuterol 3 mg 3 ml inhalation Q4H PRN shortness 11/29/23 (2.5 mg base)/3 mL nebulization of breath or wheezing 30 days #360 soln mL prednisone 20 mg tablet 40 mg (2 x 20 mg) PO DAILY 5 days 01/09/24 #10 tabs Allergies Allergy/AdvReac Type Severity Reaction Status Date / Time No Known Allergies Allergy Verified 01/09/24 12:59 Review of Systems Review of Systems: Yes all other systems are reviewed and are negative Constitutional: Constitutional: Reports as per [facility] Past Medical History Attestation statement: The following information was validated with the patient. Medical History Asthma Social History Social History Household Members: Family Housing: Apartment Do you presently have visiting nurse or other home services: No Unable to assess alcohol history related to: Unknown Patient Tobacco Use Status: Current someday Tobacco user Tobacco use type: Cigarette Cigarettes Per Day: 15 Second Hand Smoke Exposure: No Substance Use Type: Marijuana Advance Directives: No Advance Directives Information Provided: No Do you have a plan to hurt others: No Plan service: No Physical Exam Vital Signs: Vital Signs: Last Vital Signs Temp 97.5 F 01/09/24 20:01 Pulse 77 01/09/24 20:01 Resp 16 01/09/24 20:01 BP 129/73 01/09/24 20:01 Pulse Ox 97 01/09/24 20:01 O2 Del Method Room Air 01/09/24 19:59 BMI result Body Mass Index 27.2 Const: General: cooperative, comfortable and no acute distress Orientation/consciousness: patient oriented x3 Limitations: no limitations HEENT: Head: Yes normal to inspection, Yes normocephalic and Yes atraumatic Ears: hearing grossly normal bilaterally General nose exam: Normal external nose present Face and sinus: Yes normal facial exam Mouth: Normal oral and palatal mucosa present, oropharynx normal and moist mucous membranes Throat: Yes posterior oropharynx normal Eyes: General: appearance normal, both eyes and all related structures Eyelids: Yes eyelids normal Conjunctivae: conjunctivae normal Sclerae: sclerae normal Pupils: Equal, round and reactive pupils present EOM: EOMs intact bilaterally Neck: Neck: Yes normal visual inspection, Yes full ROM and Yes no lymphadenopathy Lymphatic: no lymphadenopathy noted Chest: Chest palpation & inspection: normal inspection of the chest Resp: Other: Inspiratory and expiratory wheezes noted throughout all lung muller, auditory wheezing heard with speaking. Effort & Inspection: able to speak in complete sentences, audible wheezes, no cough, labored, no pursed lip breathing and no use of accessory muscles Cardio: Rate: regular rate Rhythm: regular rhythm Heart sounds: S1 normal heart sound present and S2 normal heart sound present GI: Inspection: Yes normal to inspection Skin: General skin exam: no rashes or lesions noted Trauma: no lacerations or abrasions Wounds: no wounds Neuro: General: patient oriented x3 and moves all extremities Cranial nerves: Yes CN's II-XII intact bilaterally and Yes Equal, round and reactive pupils present Cognition (Neuro): normal cognition Gait exam (Neuro): Normal gait present Motor exam (neuro): 5/5 motor strength present throughout, Pronator motor function not present and no tremor noted Coordination: [id number] test normal and [id number] test normal Romberg Test: Negative Extrem: General: Yes normal to inspection Right upper extremity: normal to inspection Left upper extremity: normal to inspection Right lower extremity: normal to inspection Left lower extremity: normal to inspection NIH Stroke Scale Internal: Initial- Upon Arrival Time: 18:14 Level of Consciousness: Alert Level of Consciousness Questions: Answers both questions correctly Level of Consciousness Commands: Performs both tasks correctly Best Gaze: Normal Visual: No visual loss Facial Palsy: Normal Motor Arm (Right): No drift Motor Arm (Left): No drift Motor Leg (Right): No drift Motor Leg (Left): No drift Limb Ataxia: Absent Sensory: Normal Best Language: No aphasia Dysarthia: Normal Extinction and Inattention: No abnormality Score: 0 Course Course Course Narrative: This is a Rapid Medical Examination (RME) performed by Conor Patterson PA-C in triage. Full HPI, ROS, assessment and treatment plan per primary provider in the Main ED. 43 yo female hx of anxiety and asthma here for evaluation of intermittent light headedness x3 days. OLIVEROS feels like her typical migraine. no OTC meds at home for symptoms. denies chest pain, sob, wheezing, cough, LE pain/ swelling. No recent travel or long car rides. no difficulty ambulating. n ovision changes. + well appearing. exam nonfocal. PERRLA. ambulating with steady gait. Plan: basic labs, ekg Reevaluation(s) Reevaluation #1: Patient feeling much better, lungs CTAB. D/c with steroids. given return precautions, advised to f/u with certified cytotechnologist. Time: 19:45 Medications Administered Discontinued Medications Generic Name Dose Route Start Last Admin Trade Name Joseq PRN Reason Stop Dose Admin Albuterol Sulfate 2.5 mg/ 0 mg 01/09/24 17:39 01/09/24 17:43 Albuterol/Ipratropium 3 ml INHALE 01/09/24 17:40 1 dose ONCE ONE Administration Magnesium Sulfate 2 gm in 50 mls @ 25 mls/hr 01/09/24 18:10 01/09/24 18:42 Magnesium Sulfate/H2o IV 01/09/24 20:09 200 mls/hr ONCE ONE Administration Methylprednisolone Sodium Succinate 125 mg 01/09/24 18:10 01/09/24 18:45 Methylprednisolone Sod Succ 125 Mg/2 Ml Vial IVPUSH 01/09/24 18:11 125 mg ONCE ONE Administration Medical Decision Making Medical Decision Making [facility] Narrative: this is a 43-year-old female, with a history of asthma, who presents emergency department with complaints of dizziness, and shortness of breath. Audible wheezing heard throughout my physical examination. Lungs with inspiratory and expiratory wheezes noted throughout all lung muller. Patient reports that the dizziness occurs when walking, reports shortness of breath associated. She states that this has been present for the last 3 days. No ear ringing. She is neurologically intact without any neurologic deficits. Labs were obtained, she has slight leukopenia at 4.2, chemistry within normal limits. She is not orthostatic. Troponin x2 less than 2.7, beta quant less than 2. EKG sinus rhythm with occasional PVCs at a ventricular rate of 95 beats per minute, QT QTC 354/444. Patient symptoms are likely secondary to lung sounds as patient is incredibly wheezy. She was treated with IV Solu-Medrol, magnesium, and updraft. She is feeling much better after receiving these medications. Chest x-ray was ordered and un remarkable. Pt feeling much better, symptoms consistent with asthma exacerbation. Pt d/c on steroids, given strict return precautions. She understands and agrees with plan. Patient stable for discharge. Differential Diagnosis Differential Diagnoses: The differential diagnosis associated with the presentation includes Electrolyte derangement, arrhythmia, ACS, dehydration, orthostatic hypotension, pneumonia, reactive airway disease Admission/Observation Consideration of admission/observation: Escalation of care including admission/observation considered Lab Data [facility] Lab Attestation statement: I reviewed the patient's lab results. See [facility] 01/09/24 13:31 01/09/24 13:31 Labs: Lab Results 01/09/24 01/09/24 Range/Units 13:31 18:01 WBC 4.2 L (4.8-10.8) X10*3/uL RBC 4.53 (4.20-5.50) X10*6/uL Hgb 14.0 (12.0-16.0) g/dl Hct 40.8 (37.0-47.0) % MCV 90.1 (80.0-98.0) fL MCH 30.9 (27.0-33.0) pg MCHC 34.3 (31.0-35.0) g/dl RDW 14.3 (11.0-16.0) % Plt Count 304 (160-400) X10*3/uL MPV 9.7 (9.4-12.3) fL Immature Gran % (Auto) 0.0 (0.0-0.4) % Neut % (Auto) 37.7 L (45-73) % Lymph % (Auto) 52.0 H (20-40) % Leake % (Auto) 7.6 (2-11) % Eos % (Auto) 1.7 (0-4) % Baso % (Auto) 1.0 (0-2) % Lymph # (Auto) 2.2 (1.2-4.9) X10*3/uL Leake # (Auto) 0.3 (0.1-1.2) X10*3/uL Eos # (Auto) 0.1 (0.0-0.4) X10*3/uL Baso # (Auto) 0.0 (0.0-0.2) X10*3/uL Abs Immat Gran (auto) 0.00 (0.00-0.03) X10*3/uL Absolute Neuts (auto) 1.6 L (2.0-8.3) x10*3/uL Absolute Nucleated RBC 0.000 (0.0-0.012) X10*3/uL Nucleated RBC % (auto) 0.0 (0.0-0.2) /100WBC PT 10.6 L (11.1-13.3) SEC INR 0.9 (0.9-1.1) Sodium 141 (135-145) mmol/L Potassium 4.4 (3.3-5.1) mmol/L Chloride 103 (96-108) mmol/L Carbon Dioxide 28 (22-29) mmol/L Anion Gap 14 (12-20) BUN 11 (9-16) mg/dL Creatinine 0.78 (0.5-1.4) mg/dL Estim Creat Clear Calc 66.1 Estimated GFR > 60 Random Glucose 107 (60-115) mg/dL Calcium 9.1 (8.4-10.2) mg/dL Magnesium 2.0 (1.6-2.6) mg/dL Total Bilirubin 0.2 (0.0-1.0) mg/dL AST 16 (5-31) U/L ALT 14 (0-31) U/L Alkaline Phosphatase 63 (39-117) U/L Troponin I High Sens < 2.7 < 2.7 (<3.5-17.0) ng/L Total Protein 6.8 (6.5-8.0) g/dL Albumin 4.0 (3.5-5.0) g/dL Beta HCG, Quant < 2 mIU/mL Independent Interpretation I performed an independent interpretation of an: EKG Interpretation: EKG sinus rhythm with occasional PVCs, at a ventricular rate of 95 beats per minute, [place] interval 140, QT QTC 354/444, no ST elevation or depression. Radiology Impression Discussion of test interpretation with radiology: I have reviewed the radiologist's reading. Radiologist Impression: XR/XR chest 2V IMPRESSION: Unremarkable examination. Electronically signed by: Levy Valdez MD 01/09/2024 08:31 PM EDT RP Dictated By: Levy Valdez MD Discharge Plan Discharge Clinical Impression: Asthma exacerbation Patient Disposition: Home, Self-Care Instructions: Asthma (ED), Wheezing (ED) Additional Instructions: You were seen today in the emergency room, and you received IV steroids, IV magnesium, and an updraft. You likely had dizziness due to your breathing. Your blood work was reassuring. Please drink plenty of fluids get plenty of rest. Please take prescribed prednisone as directed, finish the entire course. Start this tomorrow as you already received a dose today. You need to follow-up with your primary care physician/certified cytotechnologist regarding this visit, call to make an appointment. If any new or worsening symptoms occur including but not limited to worsening dizziness, fevers, worsening shortness breath, chest pain, please return for re-evaluation. Please continue using duo nebulizer as directed. Prescriptions: New prednisone 20 mg tablet 40 mg PO DAILY 5 Days Qty: 10 0RF No Action Dupixent Pen 300 mg/2 mL pen injector 300 mg subcut Q2W Qty: 4 12RF albuterol sulfate [Ventolin HFA] 90 mcg/actuation HFA aerosol inhaler 2 puff PO Q4-6H PRN (Reason: shortness of breath or wheezing) Qty: 18 6RF albuterol sulfate 2.5 mg /3 mL (0.083 %) solution for nebulization 2.5 mg inhalation QID PRN (Reason: shortness of breath or wheezing) Qty: 75 6RF fluticasone furoate-vilanterol [Breo Ellipta] 200-25 mcg/dose blister with device 1 inh inhalation DAILY 30 Days Qty: 1 6RF Incruse Ellipta 62.5 mcg/actuation blister with device 1 inh inhalation DAILY Qty: 1 6RF ipratropium-albuterol 0.5 mg-3 mg(2.5 mg base)/3 mL solution for nebulization 3 ml inhalation Q4H PRN (Reason: shortness of breath or wheezing) 30 Days Qty: 360 6RF tramadol 50 mg tablet 50 mg PO Q6H PRN (Reason: pain) Qty: 20 0RF ibuprofen 600 mg tablet 600 mg PO Q6H PRN (Reason: fever or pain) Qty: 30 0RF cyclobenzaprine 10 mg tablet 1 tab PO BID PRN (Reason: pain) benzonatate 200 mg Capsule 200 mg PO TID hydroxyzine pamoate 25 mg capsule 1 cap PO BID PRN (Reason: Anxiety) nicotine 14 mg/24 hr Patch 24 Hour 14 mg transdermal DAILY Qty: 30 0RF famotidine [Pepcid] 20 mg tablet 20 mg PO DAILY Qty: 14 0RF prednisone 20 mg tablet 40 mg PO DAILY Qty: 20 0RF Interventions: ED Discharge Assessment Last Done: 01/09/24 20:01 Discharge Date/Time: 01/09/24 20:02 Print Language: Serbian
--- NOTE | 2024-01-09 13:00 | ECG_ITS ---
Test Reason : LIGTH HEADED Blood Pressure : / mmHG Vent. Rate : 095 BPM Atrial Rate : 095 BPM P-R Int : 140 ms QRS Dur : 090 ms QT Int : 354 ms P-R-T Axes : 066 020 025 degrees QTc Int : 444 ms Sinus rhythm with occasional Premature ventricular complexes Otherwise normal ECG When compared with ECG of 04-SEP-2023 19:52, Premature ventricular complexes are now Present Referred By: Nita Patterson Electronically Signed By:OSMAR LAKHANI
[2024-01-09 13:38] LABS: MANUAL DIFF FLAG NO
[2024-01-09 13:39] LABS: Eosinophils Absolute Auto 0.1 X10*3/uL (0.0-0.4); Eosinophils Percent Auto 1.7 % (0-4); Hematocrit 40.8 % (37.0-47.0); Lymphocytes Absolute Auto 2.2 X10*3/uL (1.2-4.9); Mean Corpuscular HGB Conc 34.3 g/dl (31.0-35.0); Mean Corpuscular Hemoglobin 30.9 pg (27.0-33.0); Mean Corpuscular Volume 90.1 fL (80.0-98.0); Mean Platelet Volume 9.7 fL (9.4-12.3); Monocytes Absolute Auto 0.3 X10*3/uL (0.1-1.2); Monocytes Percent Auto 7.6 % (2-11); Neutrophils Absolute Auto 1.6 x10*3/uL (2.0-8.3); Neutrophils Percent Auto 37.7 % (45-73); Platelet Count 304 X10*3/uL (160-400); Red Blood Count 4.53 X10*6/uL (4.20-5.50); Red Cell Distribution Width 14.3 % (11.0-16.0); White Blood Count 4.2 X10*3/uL (4.8-10.8)
[2024-01-09 13:48] LABS: INTERNATIONAL NORM RATIO 0.9 (0.9-1.1); Prothrombin Time 10.6 SEC (11.1-13.3)
[2024-01-09 13:54] LABS: Alanine Aminotransferase 14 U/L (0-31); Alkaline Phosphatase 63 U/L (39-117); Anion Gap 14 (12-20); Aspartate Amino Transferase 16 U/L (5-31); Bilirubin Total 0.2 mg/dL (0.0-1.0); Blood Urea Nitrogen 11 mg/dL (9-16); Calcium 9.1 mg/dL (8.4-10.2); Carbon Dioxide 28 mmol/L (22-29); Chloride 103 mmol/L (96-108); Creatinine Clr Calc Pharmacy 66.1; Estimated Glomerular Filt Rate > 60; Glucose Random 107 mg/dL (60-115); Potassium 4.4 mmol/L (3.3-5.1); Sodium 141 mmol/L (135-145); Total Protein 6.8 g/dL (6.5-8.0)
[2024-01-09 14:02] LABS: HCG Quantitative < 2 mIU/mL; Troponin-I High Sensitivity < 2.7 ng/L (<3.5-17.0)
[2024-01-09] MEDS: Albuterol Sulfate 2.5 MG, Albuterol/Iprat 2.5/0.5MG 3 ML 3 ML INHALE (17:43)
[2024-01-09] MEDS: Magnesium Sulfate/H2O 2 GM/50 ML PIGGYBACK IV (18:42)
[2024-01-09] MEDS: methylPREDNISolone Sod Succ 125 MG/2 ML VIAL IVPUSH (18:45)
[2024-01-09 19:08] LABS: Troponin-I High Sensitivity < 2.7 ng/L (<3.5-17.0)
== END 2024-01-09 20:02 | disposition home or self-care (01) ==
PROVIDERS: Physician Assistant Medical; Emergency Provider Internal Medicine
DX: J45.901 Unspecified asthma with (acute) exacerbation (principal); R42 Dizziness and giddiness; R94.31 Abnormal electrocardiogram [ECG] [EKG]; Z79.899 Other long term (current) drug therapy
CPT/HCPCS: 36415; 71046; 80053; 83735; 84484; 84702; 85025; 85610; 93005; 94640; 96374; 96375; 99284; 99285; J2919; J3475

== ENCOUNTER 2024-01-26 13:02 | Outpatient (AMB) | payer OTHER, SELFPAY ==
[2024-01-26 13:06] VITALS: BP 118/77; PULSE 94; O2SAT 97; BMI 27.9
--- NOTE | 2024-01-26 13:06 | MHC.OFFVIS ---
Vital Signs 01/26/24 13:06 Height 4 ft 9 in Weight 128 lb 15.527 oz BMI 27.9 BP 118/77 Blood Pressure Location Rt brachial Position Sitting Pulse 94 Pulse Source Doppler Pulse Oximetry (%) 97 Oxygen Delivery Method Room Air Intake Visit Reasons: [facility] [place] ED Follow Up/Asthma Exacerbation Allergies No Known Allergies Allergy (Verified 01/26/24 13:10) HPI [facility] ED Follow Up/Asthma Exacerbation: Details: 42-year-old lady, active 20+ pack-year smoker, followed for underlying severe persistent asthma/COPD overlap syndrome.? Patient's symptoms were previously well controlled on Dupixent, Advair, duo nebs, and albuterol MDI, however she was not able to get her several last Dupixent injections, so she started having an exacerbation requiring ER evaluation. She was treated with a course of prednisone with some improvement, however she still has residual symptoms. Patient is also complain of unrestful sleep and daytime somnolence. [facility] Medical History Asthma Social History Household Members: Family Housing: Apartment Do you presently have visiting nurse or other home services: No Unable to assess alcohol history related to: Unknown Patient Tobacco Use Status: Current someday Tobacco user Tobacco use type: Cigarette Cigarettes Per Day: 15 Second Hand Smoke Exposure: No Substance Use Type: Marijuana service: No Review of Systems Const Denies daytime sleepiness, Denies excessive sweating, Denies fatigue, Denies fever(s), Denies lethargy, Denies malaise, Denies night sweats, Denies snoring and Denies weight loss Eyes Denies blurry vision and Denies itchy eyes ENT Denies nasal congestion, Denies post nasal drip, Denies sinus pain, Denies sinus pressure and Denies other ( Thrush) Card Denies chest pain, Denies pedal edema, Denies dyspnea, Denies orthopnea and Denies paroxysmal nocturnal dyspnea Resp Denies cough, Denies hemoptysis, Denies excessive phlegm production, Denies dyspnea, Denies snoring and Reports wheezing GI Denies abdominal pain and Denies heartburn Musc Denies myalgias, Denies arthralgias and Denies joint swelling Skin/Breast Denies rash Neuro Denies memory loss and Denies seizure-like activity Psych Denies abnormal sleep pattern, Denies anxiety and Denies memory loss Endo Denies excessive sweating, Denies fatigue and Denies heat intolerance Rafiq/Lymph Denies easy bruising Aller/Immun Denies itchy eyes, Denies seasonal rhinorrhea and Reports wheezing Physical Exam Vital Signs: Last Vital Signs Pulse 94 01/26/24 13:06 BP 118/77 01/26/24 13:06 Pulse Ox 97 01/26/24 13:06 Oxygen Delivery Method Room Air 01/26/24 13:06 BMI result Body Mass Index 27.9 Const General: no acute distress and alert Nutritional Appearance: not obese Orientation/consciousness: Other orientation findings ( oriented) HEENT Head: Yes atraumatic Eyes General: appearance normal, both eyes and all related structures Sclerae: sclerae normal EOM: EOMs intact bilaterally Neck Neck: Yes supple Lymphatic: no lymphadenopathy noted Resp Effort & Inspection: normal respiratory effort and no use of accessory muscles Auscultation: clear to auscultation bilaterally Cardio Rate: regular rate Rhythm: regular rhythm Heart sounds: no gallops, no murmurs and no rubs Skin General skin exam: other ( warm) Extrem General: No clubbing, No cyanosis and No edema Assessment & Plan Assessment & Plan (1) Asthma: Code(s): J45.909 - Unspecified asthma, uncomplicated Category: Medical Plan: Worsening control off Dupixent. Restart Dupixent continue Breo, duo nebs, and albuterol MDI. (2) Environmental and seasonal allergies: Code(s): J30.89 - Other allergic rhinitis Category: Medical Plan: Expect to improve on Dupixent. (3) DMITRY (obstructive sleep apnea): Code(s): G47.33 - Obstructive sleep apnea (adult) (pediatric) Category: Medical Plan: Unrestful sleep, daytime somnolence, [place] Sleepiness Scale score of 15. Will obtain home sleep study. Orders: Orders Resp Allergy Profile Region I Today J30.89 - Other allergic rhinitis RT home sleep study Today G47.33 - Obstructive sleep apnea (adult) (pediatric) Medications: New prednisone Take 4 tabs daily for 5 days, then go down by 1 tab every 5 days 10 mg PO DIRECTED 50 tabs 0RF J30.89 - Other allergic rhinitis Discontinued prednisone Discontinued Reason: Doctor's Order 40 mg (2 x 20 mg) PO DAILY 5 days 10 tabs 0RF prednisone Discontinued Reason: Doctor's Order 40 mg (2 x 20 mg) PO DAILY 20 tabs 0RF Coding Level of Care Code Est Pt Level 4 (81737) Complex EM visit Add On G2211 Diagnoses Asthma J45.909 Environmental and seasonal allergies J30.89 DMITRY (obstructive sleep apnea) G47.33
== END 2024-01-26 13:20 | disposition home or self-care (01) ==
PROVIDERS: Visit Provider Internal Medicine Pulmonary Disease
DX: J45.909 Unspecified asthma, uncomplicated (principal); J30.89 Other allergic rhinitis; G47.33 Obstructive sleep apnea (adult) (pediatric)
CPT/HCPCS: 99214; G2211

== ENCOUNTER → 2024-01-26 13:02 | Outpatient (BNVA) | payer OTHER, SELFPAY | PROVIDERS: Visit Provider Internal Medicine Pulmonary Disease | DX: J45.909 Unspecified asthma, uncomplicated (principal); J30.89 Other allergic rhinitis; G47.33 Obstructive sleep apnea (adult) (pediatric) | CPT/HCPCS: 99212 ==

== ENCOUNTER 2024-02-07 16:30 | Emergency (ER) | payer OTHER, SELFPAY ==
--- NOTE | ~2024-02-07 | XR_ITS ---
EXAMINATION: XR CHEST CLINICAL INFORMATION: Chest pain and cough. COMPARISON: Chest radiograph 01/09/2024. TECHNIQUE: 2 views of the chest were obtained. FINDINGS: No significant abnormality is noted involving the heart, lungs, mediastinum, bony thorax or soft tissues. XR/XR chest 2V IMPRESSION: Unremarkable examination. Electronically signed by: Kisha Moser MD 02/07/2024 07:22 PM EDT
--- NOTE | 2024-02-07 16:41 | ECG_ITS ---
Test Reason : CP Blood Pressure : / mmHG Vent. Rate : 091 BPM Atrial Rate : 091 BPM P-R Int : 140 ms QRS Dur : 088 ms QT Int : 368 ms P-R-T Axes : 071 012 042 degrees QTc Int : 452 ms Normal sinus rhythm Possible Left atrial enlargement Nonspecific T wave abnormality Abnormal ECG When compared with ECG of 09-JAN-2024 13:14, Premature ventricular complexes are no longer Present Referred By: Generic ED Physician Electronically Signed By:JADA MALONE
--- NOTE | 2024-02-07 17:43 | ED.CHESTPAIN ---
HPI - Chest Pain General Chief Complaint: Chest Pain Stated Complaint: Chest pain/Dizziness Time Seen by Provider: 02/07/24 21:18 Source: patient and family Mode of arrival: ambulatory Limitations: no limitations History of Present Illness ED Provider: Dr. Brian HPI narrative: patient is a 43yo smoker, COPD who presents with weeks of left sided chest pain. Patient does not have pain with exertion, no fever, denies injury. Related Data Home Medications ?Medication ?Instructions ?Recorded ?Confirmed benzonatate 200 mg capsule 200 mg PO TID PRN 05/02/22 05/02/22 cyclobenzaprine 10 mg tablet 1 tab PO BID PRN pain 05/02/22 05/02/22 hydroxyzine pamoate 25 mg capsule 1 cap PO BID PRN Anxiety 05/02/22 05/02/22 Previous Rx's ?Medication ?Instructions ?Recorded famotidine 20 mg tablet (Pepcid) 20 mg PO DAILY #14 tabs 05/03/22 nicotine 14 mg/24 hr daily 14 mg transdermal DAILY #30 ea 05/03/22 transdermal patch ibuprofen 600 mg tablet 600 mg PO Q6H PRN fever or pain 05/11/22 #30 tabs tramadol 50 mg tablet 50 mg PO Q6H PRN pain #20 tabs 05/11/22 dupilumab 300 mg/2 mL subcutaneous 300 mg (2 mL) subcut Q2W #4 mL 04/01/23 pen injector (Dupixent) albuterol sulfate 90 mcg/actuation 2 puff PO Q4-6H PRN shortness of 09/03/23 aerosol inhaler (Ventolin HFA) breath or wheezing #18 ea fluticasone furoate 200 1 inh inhalation DAILY 30 days #1 11/14/23 mcg-vilanterol 25 mcg/dose ea inhalation powder (Breo Ellipta) umeclidinium 62.5 mcg/actuation 1 inh inhalation DAILY #1 ea 11/14/23 blister powder for inhalation (Incruse Ellipta) ipratropium 0.5 mg-albuterol 3 mg 3 ml inhalation Q4H PRN shortness 11/29/23 (2.5 mg base)/3 mL nebulization of breath or wheezing 30 days #360 soln mL prednisone 10 mg tablet 10 mg PO DIRECTED #50 tabs 01/26/24 albuterol sulfate 2.5 mg/3 mL 2.5 mg (3 mL) inhalation QID PRN 02/03/24 (0.083 %) solution for nebulization shortness of breath or wheezing #180 mL Allergies Allergy/AdvReac Type Severity Reaction Status Date / Time No Known Allergies Allergy Verified 02/07/24 17:46 Review of Systems Review of Systems: Yes all other systems are reviewed and are negative Neurologic: Denies Sensory deficit (Neuro) [facility] Past Medical History Medical History Asthma Social History Social History Household Members: Family Housing: Apartment Do you presently have visiting nurse or other home services: No Unable to assess alcohol history related to: Unknown Patient Tobacco Use Status: Current someday Tobacco user Tobacco use type: Cigarette Cigarettes Per Day: 15 Second Hand Smoke Exposure: No Substance Use Type: Marijuana Advance Directives: No Advance Directives Information Provided: No service: No Physical Exam Vital Signs: Vital Signs: Last Vital Signs Temp 97.8 F 02/07/24 17:44 Pulse 85 02/07/24 17:44 Resp 18 02/07/24 17:44 BP 132/87 02/07/24 17:44 Pulse Ox 100 02/07/24 17:44 O2 Del Method Room Air 02/07/24 17:44 BMI result Body Mass Index 27.8 Const: Other: female looking older than stated age in no acute distress General: healthy appearing Nutritional Appearance: average body habitus Orientation/consciousness: oriented to person and patient oriented x3 Limitations: no limitations HEENT: Head: Yes normal to inspection Ears: external ears normal General nose exam: Normal external nose present Mouth: Normal oral and palatal mucosa present and oropharynx normal Throat: Yes posterior oropharynx normal Eyes: General: appearance normal, both eyes and all related structures Neck: Other: supple Neck: Yes normal visual inspection Chest: Chest palpation & inspection: normal inspection of the chest Resp: Other: left sided wheezing worse than right Cardio: Jugular venous distension: no JVD Rate: regular rate Rhythm: regular rhythm Heart sounds: S1 normal heart sound present and S2 normal heart sound present GI: Inspection: Yes normal to inspection Palpation (GI): Soft to palpation, nontender and No hepatosplenomegaly present Auscultation: normal bowel sounds : General: Yes no CVA tenderness Back/Spine/Pelvis: Back: no CVA tenderness Skin: General skin exam: no rashes or lesions noted Neuro: General: oriented to person and patient oriented x3 Cranial nerves: Yes CN's II-XII intact bilaterally Motor exam (neuro): 5/5 motor strength present throughout Sensory Exam: No Sensory deficit (Neuro) Extrem: General: Yes normal to inspection Psych: Appearance: grossly normal Course Course Course Narrative: This is an RME: Additional HPI, ROS, PE not included below will be deferred to primary provider. RME assessment and note performed by: Kellee Robin PA-C This is a 43 year old female, with a hx of asthma, DMITRY, who presents to the ER with complaints of chest pain, cough, SOB, BL ankle swelling x several days. Also endorsing dizziness. Coarse lung sounds however good air movement throughout. No calf tenderness. No pitting edema noted on examination Plan: Chest x-ray, EKG, labs, viral swabs, further ER evaluation needed. Reevaluation(s) Reevaluation #1: No evidence of cardiac ischemia, no pneumonia or covid. Patient with wheezing will dc with albuterol Time: 21:39 Medical Decision Making Differential Diagnosis Differential Diagnoses: The differential diagnosis associated with the presentation includes (pneumonia, cardiac ischemia, COPD exacerbation) Admission/Observation Consideration of admission/observation: Escalation of care including admission/observation considered (upon arrival patient considered for admission) Lab Data 02/07/24 19:58 02/07/24 19:58 Labs: Lab Results 02/07/24 02/07/24 Range/Units 19:55 19:58 WBC 5.9 (4.8-10.8) X10*3/uL RBC 4.44 (4.20-5.50) X10*6/uL Hgb 13.8 (12.0-16.0) g/dl Hct 40.4 (37.0-47.0) % MCV 91.0 (80.0-98.0) fL MCH 31.1 (27.0-33.0) pg MCHC 34.2 (31.0-35.0) g/dl RDW 15.0 (11.0-16.0) % Plt Count 337 (160-400) X10*3/uL MPV 9.4 (9.4-12.3) fL Immature Gran % (Auto) 0.2 (0.0-0.4) % Neut % (Auto) 37.2 L (45-73) % Lymph % (Auto) 53.3 H (20-40) % Morrow % (Auto) 5.5 (2-11) % Eos % (Auto) 2.9 (0-4) % Baso % (Auto) 0.9 (0-2) % Lymph # (Auto) 3.1 (1.2-4.9) X10*3/uL Morrow # (Auto) 0.3 (0.1-1.2) X10*3/uL Eos # (Auto) 0.2 (0.0-0.4) X10*3/uL Baso # (Auto) 0.1 (0.0-0.2) X10*3/uL Abs Immat Gran (auto) 0.01 (0.00-0.03) X10*3/uL Absolute Neuts (auto) 2.2 (2.0-8.3) x10*3/uL Absolute Nucleated RBC 0.000 (0.0-0.012) X10*3/uL Nucleated RBC % (auto) 0.0 (0.0-0.2) /100WBC PT 10.0 L (10.9-12.4) SEC INR 0.9 (0.9-1.1) APTT 33.5 (26.0-36.8) SEC Sodium 139 (135-145) mmol/L Potassium 4.0 (3.3-5.1) mmol/L Chloride 105 (96-108) mmol/L Carbon Dioxide 26 (22-29) mmol/L Anion Gap 12 (12-20) BUN 10 (9-16) mg/dL Creatinine 0.81 (0.5-1.4) mg/dL Estim Creat Clear Calc 64.3 Estimated GFR > 60 Random Glucose 139 H (60-115) mg/dL Calcium 9.1 (8.4-10.2) mg/dL Magnesium 1.9 (1.6-2.6) mg/dL Total Bilirubin 0.4 (0.0-1.0) mg/dL Direct Bilirubin 0.1 (0.0-0.5) mg/dL AST 16 (5-31) U/L ALT 23 (0-31) U/L Alkaline Phosphatase 74 (39-117) U/L Troponin I High Sens 5.6 D (<3.5-17.0) ng/L Total Protein 6.7 (6.5-8.0) g/dL Albumin 4.0 (3.5-5.0) g/dL Lipase 35 (8-78) U/L Beta HCG, Quant < 2 mIU/mL Influenza Type A (PCR) NEGATIVE (Negative) Influenza Type B (PCR) NEGATIVE (Negative) RSV RNA Qual (PCR) NEGATIVE (Negative) SARS-CoV-2 RNA (RT-PCR) NEGATIVE (Negative) Independent Interpretation I performed an independent interpretation of an: EKG (sinus [address] or twave changes) and Plain X-Ray (CXR: no infiltrate) Independent Historian Clinical information obtained from an independent historian. History obtained from or confirmed by: Spouse Prescription Management I considered prescription management with: Antibiotic (no infiltrate seen on xray so no abx given) Social Determinants Patient?s care significantly limited by Social Determinants of Health including: Low income Discharge Plan Discharge Clinical Impression: COPD exacerbation Patient Disposition: Home, Self-Care Instructions: Chronic Bronchitis (ED) Prescriptions: No Action Dupixent Pen 300 mg/2 mL pen injector 300 mg subcut Q2W Qty: 4 12RF albuterol sulfate [Ventolin HFA] 90 mcg/actuation HFA aerosol inhaler 2 puff PO Q4-6H PRN (Reason: shortness of breath or wheezing) Qty: 18 6RF fluticasone furoate-vilanterol [Breo Ellipta] 200-25 mcg/dose blister with device 1 inh inhalation DAILY 30 Days Qty: 1 6RF Incruse Ellipta 62.5 mcg/actuation blister with device 1 inh inhalation DAILY Qty: 1 6RF ipratropium-albuterol 0.5 mg-3 mg(2.5 mg base)/3 mL solution for nebulization 3 ml inhalation Q4H PRN (Reason: shortness of breath or wheezing) 30 Days Qty: 360 6RF albuterol sulfate 2.5 mg /3 mL (0.083 %) solution for nebulization 2.5 mg inhalation QID PRN (Reason: shortness of breath or wheezing) Qty: 180 6RF tramadol 50 mg tablet 50 mg PO Q6H PRN (Reason: pain) Qty: 20 0RF ibuprofen 600 mg tablet 600 mg PO Q6H PRN (Reason: fever or pain) Qty: 30 0RF cyclobenzaprine 10 mg tablet 1 tab PO BID PRN (Reason: pain) benzonatate 200 mg Capsule 200 mg PO TID hydroxyzine pamoate 25 mg capsule 1 cap PO BID PRN (Reason: Anxiety) nicotine 14 mg/24 hr Patch 24 Hour 14 mg transdermal DAILY Qty: 30 0RF famotidine [Pepcid] 20 mg tablet 20 mg PO DAILY Qty: 14 0RF prednisone 10 mg tablet 10 mg PO DIRECTED Qty: 50 0RF Rx Instructions: Take 4 tabs daily for 5 days, then go down by 1 tab every 5 days Referrals: Physician,None [Primary Care Provider] - 1 week Print Language: Kyrgyz
[2024-02-07 17:44] VITALS: BP 132/87; PULSE 85; RESP 18; TEMP 36.6; O2SAT 100; BMI 27.8
[2024-02-07 20:03] LABS: MANUAL DIFF FLAG NO
[2024-02-07 20:05] LABS: Basophils Absolute Auto 0.1 X10*3/uL (0.0-0.2); Basophils Percent Auto 0.9 % (0-2); Eosinophils Absolute Auto 0.2 X10*3/uL (0.0-0.4); Eosinophils Percent Auto 2.9 % (0-4); Hematocrit 40.4 % (37.0-47.0); Hemoglobin 13.8 g/dl (12.0-16.0); Imm Gran Abs Auto 0.01 X10*3/uL (0.00-0.03); Imm Gran Pct Auto 0.2 % (0.0-0.4); Lymphocytes Absolute Auto 3.1 X10*3/uL (1.2-4.9); Lymphocytes Percent Auto 53.3 % (20-40); Mean Corpuscular HGB Conc 34.2 g/dl (31.0-35.0); Mean Corpuscular Hemoglobin 31.1 pg (27.0-33.0); Mean Platelet Volume 9.4 fL (9.4-12.3); Monocytes Absolute Auto 0.3 X10*3/uL (0.1-1.2); Monocytes Percent Auto 5.5 % (2-11); Neutrophils Absolute Auto 2.2 x10*3/uL (2.0-8.3); Neutrophils Percent Auto 37.2 % (45-73); Platelet Count 337 X10*3/uL (160-400); Red Blood Count 4.44 X10*6/uL (4.20-5.50); White Blood Count 5.9 X10*3/uL (4.8-10.8)
[2024-02-07 20:27] LABS: Alanine Aminotransferase 23 U/L (0-31); Alkaline Phosphatase 74 U/L (39-117); Anion Gap 12 (12-20); Aspartate Amino Transferase 16 U/L (5-31); Bilirubin Direct 0.1 mg/dL (0.0-0.5); Bilirubin Total 0.4 mg/dL (0.0-1.0); Blood Urea Nitrogen 10 mg/dL (9-16); Calcium 9.1 mg/dL (8.4-10.2); Carbon Dioxide 26 mmol/L (22-29); Chloride 105 mmol/L (96-108); Creatinine Clr Calc Pharmacy 64.3; Estimated Glomerular Filt Rate > 60; Glucose Random 139 mg/dL (60-115); Lipase 35 U/L (8-78); Magnesium 1.9 mg/dL (1.6-2.6); Sodium 139 mmol/L (135-145); Total Protein 6.7 g/dL (6.5-8.0); Troponin-I High Sensitivity 5.6 ng/L (<3.5-17.0)
[2024-02-07 20:29] LABS: HCG Quantitative < 2 mIU/mL
[2024-02-07 20:41] LABS: Influenza A PCR NEGATIVE (Negative); Influenza B PCR NEGATIVE (Negative); Resp Syncy Virus RNA Qual PCR NEGATIVE (Negative); SARS COV2 PCR INHOUSE NEGATIVE (Negative)
[2024-02-07 21:23] LABS: INTERNATIONAL NORM RATIO 0.9 (0.9-1.1)
[2024-02-07 21:26] LABS: Partial Thromboplastin Time 33.5 SEC (26.0-36.8)
[2024-02-07 21:43] VITALS: BP 127/79; PULSE 77; RESP 20; TEMP 36.4; O2SAT 93
[2024-02-07 21:48] VITALS: BP 127/79; PULSE 77; RESP 20; TEMP 36.4; O2SAT 93
== END 2024-02-07 21:48 | disposition home or self-care (01) ==
PROVIDERS: Physician Assistant Medical; Emergency Provider Emergency Medicine
DX: J44.1 Chronic obstructive pulmonary disease with (acute) exacerbation (principal); R07.89 Other chest pain; R42 Dizziness and giddiness; F17.210 Nicotine dependence, cigarettes, uncomplicated; Z79.899 Other long term (current) drug therapy; Z03.818 Encounter for observation for suspected exposure to other biological agents ruled out
CPT/HCPCS: 0241U; 36415; 71046; 80048; 80076; 83690; 83735; 84484; 84702; 85025; 85610; 85730; 93005; 99283; 99284

== ENCOUNTER → 2024-02-07 16:41 | Outpatient (BNV) | payer OTHER, SELFPAY | PROVIDERS: Emergency Provider Emergency Medicine; Visit Provider Internal Medicine | DX: R07.9 Chest pain, unspecified (principal) | CPT/HCPCS: 93010 ==

== ENCOUNTER 2024-02-20 19:53 | Emergency (ER) | payer OTHER, SELFPAY ==
--- NOTE | 2024-02-20 20:02 | ED.DENTAL ---
HPI - Dental/Oral General Chief complaint: Dental/Oral Stated complaint: Mouth Sore Time Seen by Provider: 02/20/24 22:05 Related Data Home Medications ?Medication ?Instructions ?Recorded ?Confirmed benzonatate 200 mg capsule 200 mg PO TID PRN 05/02/22 05/02/22 cyclobenzaprine 10 mg tablet 1 tab PO BID PRN pain 05/02/22 05/02/22 hydroxyzine pamoate 25 mg capsule 1 cap PO BID PRN Anxiety 05/02/22 05/02/22 Previous Rx's ?Medication ?Instructions ?Recorded famotidine 20 mg tablet (Pepcid) 20 mg PO DAILY #14 tabs 05/03/22 nicotine 14 mg/24 hr daily 14 mg transdermal DAILY #30 ea 05/03/22 transdermal patch ibuprofen 600 mg tablet 600 mg PO Q6H PRN fever or pain 05/11/22 #30 tabs tramadol 50 mg tablet 50 mg PO Q6H PRN pain #20 tabs 05/11/22 dupilumab 300 mg/2 mL subcutaneous 300 mg (2 mL) subcut Q2W #4 mL 04/01/23 pen injector ([employer]) albuterol sulfate 90 mcg/actuation 2 puff PO Q4-6H PRN shortness of 09/03/23 aerosol inhaler (Ventolin HFA) breath or wheezing #18 ea fluticasone furoate 200 1 inh inhalation DAILY 30 days #1 11/14/23 mcg-vilanterol 25 mcg/dose ea inhalation powder (Breo Ellipta) umeclidinium 62.5 mcg/actuation 1 inh inhalation DAILY #1 ea 11/14/23 blister powder for inhalation (Incruse Ellipta) ipratropium 0.5 mg-albuterol 3 mg 3 ml inhalation Q4H PRN shortness 11/29/23 (2.5 mg base)/3 mL nebulization of breath or wheezing 30 days #360 soln mL prednisone 10 mg tablet 10 mg PO DIRECTED #50 tabs 01/26/24 albuterol sulfate 2.5 mg/3 mL 2.5 mg (3 mL) inhalation QID PRN 02/03/24 (0.083 %) solution for nebulization shortness of breath or wheezing #180 mL amoxicillin 875 mg-potassium 1 tab PO BID #20 tabs 02/20/24 clavulanate 125 mg tablet ibuprofen 600 mg tablet 600 mg PO Q6H PRN fever or pain 02/20/24 #30 tabs Allergies Allergy/AdvReac Type Severity Reaction Status Date / Time No Known Allergies Allergy Verified 02/20/24 20:04 COUNT INCLUDES THE [facility] Past Medical History Medical History Asthma Social History Social History Household Members: Family Housing: Apartment Do you presently have visiting nurse or other home services: No Unable to assess alcohol history related to: Unknown Patient Tobacco Use Status: Current someday Tobacco user Tobacco use type: Cigarette Cigarettes Per Day: 15 Second Hand Smoke Exposure: No Substance Use Type: Marijuana Advance Directives: No Advance Directives Information Provided: No service: No Physical Exam Vital Signs: Vital Signs: Last Vital Signs Temp 98.5 F 02/20/24 22:52 Pulse 108 H 02/20/24 22:52 Resp 18 02/20/24 22:52 BP 122/78 02/20/24 22:52 Pulse Ox 96 02/20/24 22:52 O2 Del Method Room Air 02/20/24 22:52 BMI result Body Mass Index 26.2 Course Course Course Narrative: This is a Rapid Medical Exam performed in triage by Odette Muller PA-C. Full HPI, ROS and PE to be performed by primary ED provider. 43yo F w/PMHx DMITRY, asthma, presenting to the ED c/o abscess to roof of mouth x2 days. denies fever, chills, recent dental procedures PE: +abscess noted to hard palate. +ttp. Poor dentition Plan: I&D Medications Administered Discontinued Medications Generic Name Dose Route Start Last Admin Trade Name Freq PRN Reason Stop Dose Admin Amoxicillin/Clavulanate Potassium 875 mg 02/20/24 22:30 02/20/24 22:35 Amoxicillin/Potassium Clav 875 Mg Tablet PO 02/20/24 22:31 875 mg ONCE ONE Administration Ibuprofen 600 mg 02/20/24 22:50 02/20/24 22:50 Ibuprofen 600 Mg Tablet PO 02/20/24 22:51 600 mg ONCE ONE Administration Lidocaine HCl 2 ml 02/20/24 22:30 02/20/24 22:35 Lidocaine Hcl 1 % Mpf 2 Ml Vial INFILTRATI 02/20/24 22:31 2 ml ONCE ONE Administration Discharge Plan Discharge Clinical Impression: Dental abscess Patient Disposition: Home, Self-Care Instructions: Dental Abscess (ED) Additional Instructions: Local care as advised Antibiotics as prescribed Follow with dentist Prescriptions: New ibuprofen 600 mg tablet 600 mg PO Q6H PRN (Reason: fever or pain) Qty: 30 0RF amoxicillin-pot clavulanate 875-125 mg tablet 1 tab PO BID Qty: 20 0RF No Action Dupixent Pen 300 mg/2 mL pen injector 300 mg subcut Q2W Qty: 4 12RF albuterol sulfate [Ventolin HFA] 90 mcg/actuation HFA aerosol inhaler 2 puff PO Q4-6H PRN (Reason: shortness of breath or wheezing) Qty: 18 6RF fluticasone furoate-vilanterol [Breo Ellipta] 200-25 mcg/dose blister with device 1 inh inhalation DAILY 30 Days Qty: 1 6RF Incruse Ellipta 62.5 mcg/actuation blister with device 1 inh inhalation DAILY Qty: 1 6RF ipratropium-albuterol 0.5 mg-3 mg(2.5 mg base)/3 mL solution for nebulization 3 ml inhalation Q4H PRN (Reason: shortness of breath or wheezing) 30 Days Qty: 360 6RF albuterol sulfate 2.5 mg /3 mL (0.083 %) solution for nebulization 2.5 mg inhalation QID PRN (Reason: shortness of breath or wheezing) Qty: 180 6RF tramadol 50 mg tablet 50 mg PO Q6H PRN (Reason: pain) Qty: 20 0RF ibuprofen 600 mg tablet 600 mg PO Q6H PRN (Reason: fever or pain) Qty: 30 0RF cyclobenzaprine 10 mg tablet 1 tab PO BID PRN (Reason: pain) benzonatate 200 mg Capsule 200 mg PO TID hydroxyzine pamoate 25 mg capsule 1 cap PO BID PRN (Reason: Anxiety) nicotine 14 mg/24 hr Patch 24 Hour 14 mg transdermal DAILY Qty: 30 0RF famotidine [Pepcid] 20 mg tablet 20 mg PO DAILY Qty: 14 0RF prednisone 10 mg tablet 10 mg PO DIRECTED Qty: 50 0RF Rx Instructions: Take 4 tabs daily for 5 days, then go down by 1 tab every 5 days Interventions: ED Discharge Assessment Last Done: 02/20/24 22:52 Discharge Date/Time: 02/20/24 22:53 Print Language: Lithuanian
[2024-02-20 20:03] VITALS: BP 122/78; PULSE 108; RESP 18; TEMP 36.9; O2SAT 96; BMI 26.2
[2024-02-20] MEDS: Amoxicillin/Potassium Clav 875 MG TABLET PO (22:35)
[2024-02-20] MEDS: Lidocaine HCl 1 % MPF 2 ML VIAL INFILTRATI (22:35)
[2024-02-20] MEDS: Ibuprofen 600 MG TABLET PO (22:50)
[2024-02-20 22:52] VITALS: BP 122/78; PULSE 108; RESP 18; TEMP 36.9; O2SAT 96
--- NOTE | 2024-02-21 01:33 | ED_ITS ---
HPI - Dental/Oral General Chief complaint: Dental/Oral Stated complaint: Mouth Sore Time Seen by Provider: 02/20/24 22:05 Source: patient Mode of arrival: ambulatory Limitations: no limitations History of Present Illness ED Provider: luis armando DODSON Narrative: Patient with dental caries noticed soft tissue swelling of the roof of the mouth for last 2 days no fever no chills Related Data Home Medications ?Medication ?Instructions ?Recorded ?Confirmed benzonatate 200 mg capsule 200 mg PO TID PRN 05/02/22 05/02/22 cyclobenzaprine 10 mg tablet 1 tab PO BID PRN pain 05/02/22 05/02/22 hydroxyzine pamoate 25 mg capsule 1 cap PO BID PRN Anxiety 05/02/22 05/02/22 Previous Rx's ?Medication ?Instructions ?Recorded famotidine 20 mg tablet (Pepcid) 20 mg PO DAILY #14 tabs 05/03/22 nicotine 14 mg/24 hr daily 14 mg transdermal DAILY #30 ea 05/03/22 transdermal patch ibuprofen 600 mg tablet 600 mg PO Q6H PRN fever or pain 05/11/22 #30 tabs tramadol 50 mg tablet 50 mg PO Q6H PRN pain #20 tabs 05/11/22 dupilumab 300 mg/2 mL subcutaneous 300 mg (2 mL) subcut Q2W #4 mL 04/01/23 pen injector (Dupixent) albuterol sulfate 90 mcg/actuation 2 puff PO Q4-6H PRN shortness of 09/03/23 aerosol inhaler (Ventolin HFA) breath or wheezing #18 ea fluticasone furoate 200 1 inh inhalation DAILY 30 days #1 11/14/23 mcg-vilanterol 25 mcg/dose ea inhalation powder (Breo Ellipta) umeclidinium 62.5 mcg/actuation 1 inh inhalation DAILY #1 ea 11/14/23 blister powder for inhalation (Incruse Ellipta) ipratropium 0.5 mg-albuterol 3 mg 3 ml inhalation Q4H PRN shortness 11/29/23 (2.5 mg base)/3 mL nebulization of breath or wheezing 30 days #360 soln mL prednisone 10 mg tablet 10 mg PO DIRECTED #50 tabs 01/26/24 albuterol sulfate 2.5 mg/3 mL 2.5 mg (3 mL) inhalation QID PRN 02/03/24 (0.083 %) solution for nebulization shortness of breath or wheezing #180 mL amoxicillin 875 mg-potassium 1 tab PO BID #20 tabs 02/20/24 clavulanate 125 mg tablet ibuprofen 600 mg tablet 600 mg PO Q6H PRN fever or pain 02/20/24 #30 tabs Allergies Allergy/AdvReac Type Severity Reaction Status Date / Time No Known Allergies Allergy Verified 02/20/24 20:04 Review of Systems 2 Review of Systems: Yes all other systems are reviewed and are negative [facility] Past Medical History Medical History Asthma Social History Social History Household Members: Family Housing: Apartment Do you presently have visiting nurse or other home services: No Unable to assess alcohol history related to: Unknown Patient Tobacco Use Status: Current someday Tobacco user Tobacco use type: Cigarette Cigarettes Per Day: 15 Second Hand Smoke Exposure: No Substance Use Type: Marijuana Advance Directives: No Advance Directives Information Provided: No service: No Physical Exam 2 Vital Signs: Vital Signs: Last Vital Signs Temp 98.5 F 02/20/24 22:52 Pulse 108 H 02/20/24 22:52 Resp 18 02/20/24 22:52 BP 122/78 02/20/24 22:52 Pulse Ox 96 02/20/24 22:52 O2 Del Method Room Air 02/20/24 22:52 BMI result Body Mass Index 26.2 HEENT: Teeth image: 1. Fluctuant abscess with diffuse dental caries Medications Administered Discontinued Medications Generic Name Dose Route Start Last Admin Trade Name Freq PRN Reason Stop Dose Admin Amoxicillin/Clavulanate Potassium 875 mg 02/20/24 22:30 02/20/24 22:35 Amoxicillin/Potassium Clav 875 Mg Tablet PO 02/20/24 22:31 875 mg ONCE ONE Administration Ibuprofen 600 mg 02/20/24 22:50 02/20/24 22:50 Ibuprofen 600 Mg Tablet PO 02/20/24 22:51 600 mg ONCE ONE Administration Lidocaine HCl 2 ml 02/20/24 22:30 02/20/24 22:35 Lidocaine Hcl 1 % Mpf 2 Ml Vial INFILTRATI 02/20/24 22:31 2 ml ONCE ONE Administration Procedures Abscess I/D Site: oral (Palatal abscess) Local Anesthetic: lidocaine 1% Amount of anesthesia used (mL): 1 Technique: needle aspiration Amount of fluid expressed (mL): 1.5 Sent for culture/gram staining?: No Irrigation: No Packing used?: none Discharge Plan Discharge Clinical Impression: Dental abscess Patient Disposition: Home, Self-Care Instructions: Dental Abscess (ED) Additional Instructions: Local care as advised Antibiotics as prescribed Follow with dentist Prescriptions: New ibuprofen 600 mg tablet 600 mg PO Q6H PRN (Reason: fever or pain) Qty: 30 0RF amoxicillin-pot clavulanate 875-125 mg tablet 1 tab PO BID Qty: 20 0RF No Action Dupixent Pen 300 mg/2 mL pen injector 300 mg subcut Q2W Qty: 4 12RF albuterol sulfate [Ventolin HFA] 90 mcg/actuation HFA aerosol inhaler 2 puff PO Q4-6H PRN (Reason: shortness of breath or wheezing) Qty: 18 6RF fluticasone furoate-vilanterol [Breo Ellipta] 200-25 mcg/dose blister with device 1 inh inhalation DAILY 30 Days Qty: 1 6RF Incruse Ellipta 62.5 mcg/actuation blister with device 1 inh inhalation DAILY Qty: 1 6RF ipratropium-albuterol 0.5 mg-3 mg(2.5 mg base)/3 mL solution for nebulization 3 ml inhalation Q4H PRN (Reason: shortness of breath or wheezing) 30 Days Qty: 360 6RF albuterol sulfate 2.5 mg /3 mL (0.083 %) solution for nebulization 2.5 mg inhalation QID PRN (Reason: shortness of breath or wheezing) Qty: 180 6RF tramadol 50 mg tablet 50 mg PO Q6H PRN (Reason: pain) Qty: 20 0RF ibuprofen 600 mg tablet 600 mg PO Q6H PRN (Reason: fever or pain) Qty: 30 0RF cyclobenzaprine 10 mg tablet 1 tab PO BID PRN (Reason: pain) benzonatate 200 mg Capsule 200 mg PO TID hydroxyzine pamoate 25 mg capsule 1 cap PO BID PRN (Reason: Anxiety) nicotine 14 mg/24 hr Patch 24 Hour 14 mg transdermal DAILY Qty: 30 0RF famotidine [Pepcid] 20 mg tablet 20 mg PO DAILY Qty: 14 0RF prednisone 10 mg tablet 10 mg PO DIRECTED Qty: 50 0RF Rx Instructions: Take 4 tabs daily for 5 days, then go down by 1 tab every 5 days Interventions: ED Discharge Assessment Last Done: 02/20/24 22:52 Discharge Date/Time: 02/20/24 22:53 Print Language: Setswana
== END 2024-02-20 22:53 | disposition home or self-care (01) ==
PROVIDERS: Emergency Provider Internal Medicine
DX: K04.7 Periapical abscess without sinus (principal); K02.9 Dental caries, unspecified; J45.909 Unspecified asthma, uncomplicated; F17.210 Nicotine dependence, cigarettes, uncomplicated; F12.90 Cannabis use, unspecified, uncomplicated
CPT/HCPCS: 10160; 99283; 99284; J2003

== ENCOUNTER 2024-04-06 04:38 | Emergency (ER) | payer OTHER, SELFPAY ==
--- NOTE | ~2024-04-06 | XR_ITS ---
EXAMINATION: XR CHEST CLINICAL INFORMATION: dyspnea, cough COMPARISON: Chest radiograph 02/07/2024 TECHNIQUE: Frontal view of the chest was obtained. FINDINGS: Normal appearance of the cardiomediastinal structures. No effusions or pneumothoraces. Normal pattern of pulmonary vasculature. No focal pulmonary consolidation. No skeletal abnormalities identified. XR/XR chest 1V IMPRESSION: Normal chest. Lungs clear. Electronically signed by: Carlos Alberto Berry MD 04/06/2024 06:07 AM CATHLEEN
[2024-04-06 04:44] VITALS: BP 129/83; PULSE 83; RESP 22; TEMP 36.6; O2SAT 99; BMI 24.9
[2024-04-06 05:34] LABS: Influenza A PCR NEGATIVE (Negative); Influenza B PCR NEGATIVE (Negative); Resp Syncy Virus RNA Qual PCR NEGATIVE (Negative); SARS COV2 PCR INHOUSE NEGATIVE (Negative)
== END 2024-04-06 06:47 | disposition left against medical advice (07) ==
PROVIDERS: Emergency Provider Internal Medicine; PCP Internal Medicine
DX: R05.9 Cough, unspecified (principal); R06.00 Dyspnea, unspecified; Z03.818 Encounter for observation for suspected exposure to other biological agents ruled out; Z53.21 Procedure and treatment not carried out due to patient leaving prior to being seen by health care provider
CPT/HCPCS: 0241U; 71045; 99281

== ENCOUNTER 2024-04-22 21:33 | Emergency (ER) | payer OTHER, SELFPAY ==
--- NOTE | ~2024-04-22 | XR_ITS ---
CLINICAL HISTORY: sob cough 1 view chest x-ray Comparison: Chest x-ray from 04/06/2024 Findings: No consolidation or effusion. No pneumothorax. Imaged mediastinum appears unchanged. No interim osseous change in the [id number]. IMPRESSION: No consolidation and no significant change when compared to 04/06/2024 This document has been electronically signed by: Lavelle Fregoso MD on 04/22/2024 22:16:27
[2024-04-22 21:41] VITALS: BP 124/88; PULSE 96; RESP 20; TEMP 36.6; O2SAT 96; BMI 25.3
[2024-04-22 22:55] LABS: Influenza A PCR NEGATIVE (Negative); Influenza B PCR NEGATIVE (Negative); Resp Syncy Virus RNA Qual PCR NEGATIVE (Negative); SARS COV2 PCR INHOUSE NEGATIVE (Negative)
--- NOTE | 2024-04-23 01:39 | PC.NURSE ---
pt sleeping in waiting room no s/s of distress noted.
[2024-04-23 01:46] VITALS: BP 107/75; PULSE 99; RESP 16; TEMP 36.6; O2SAT 94
[2024-04-23 03:22] VITALS: BP 110/85; PULSE 94; RESP 30; TEMP 36.6; O2SAT 96
[2024-04-23 03:26] VITALS: O2SAT 95
--- NOTE | 2024-04-23 03:28 | ED.URI ---
HPI - URI/Sore Throat General Chief Complaint: Upper Respiratory Symptoms Stated Complaint: asthma, diff breathing Time Seen by Provider: 04/23/24 03:25 Source: patient Mode of arrival: ambulatory Limitations: no limitations History of Present Illness ED Provider: Dr. Bonny Mendosa HPI Narrative: Patient comes to the emergency room complaining of an asthma exacerbation. Patient states that she ran out of her updraft medication and she has been wheezing for couple of days. Patient denies coughing more than usual. At this time, patient complaining of wheezing, chest tightness but no pain. Denies fever chills Related Data Home Medications ?Medication ?Instructions ?Recorded ?Confirmed benzonatate 200 mg capsule 200 mg PO TID PRN 05/02/22 05/02/22 cyclobenzaprine 10 mg tablet 1 tab PO BID PRN pain 05/02/22 05/02/22 hydroxyzine pamoate 25 mg capsule 1 cap PO BID PRN Anxiety 05/02/22 05/02/22 Previous Rx's ?Medication ?Instructions ?Recorded famotidine 20 mg tablet (Pepcid) 20 mg PO DAILY #14 tabs 05/03/22 nicotine 14 mg/24 hr daily 14 mg transdermal DAILY #30 ea 05/03/22 transdermal patch ibuprofen 600 mg tablet 600 mg PO Q6H PRN fever or pain 05/11/22 #30 tabs tramadol 50 mg tablet 50 mg PO Q6H PRN pain #20 tabs 05/11/22 dupilumab 300 mg/2 mL subcutaneous 300 mg (2 mL) subcut Q2W #4 mL 04/01/23 pen injector ([employer]) fluticasone furoate 200 1 inh inhalation DAILY 30 days #1 11/14/23 mcg-vilanterol 25 mcg/dose ea inhalation powder (Breo Ellipta) umeclidinium 62.5 mcg/actuation 1 inh inhalation DAILY #1 ea 11/14/23 blister powder for inhalation (Incruse Ellipta) ipratropium 0.5 mg-albuterol 3 mg 3 ml inhalation Q4H PRN shortness 11/29/23 (2.5 mg base)/3 mL nebulization of breath or wheezing 30 days #360 soln mL albuterol sulfate 2.5 mg/3 mL 2.5 mg (3 mL) inhalation QID PRN 02/03/24 (0.083 %) solution for nebulization shortness of breath or wheezing #180 mL amoxicillin 875 mg-potassium 1 tab PO BID #20 tabs 02/20/24 clavulanate 125 mg tablet ibuprofen 600 mg tablet 600 mg PO Q6H PRN fever or pain 02/20/24 #30 tabs albuterol sulfate 90 mcg/actuation 2 puff PO Q4-6H PRN shortness of 03/26/24 aerosol inhaler (Ventolin HFA) breath or wheezing #18 ea azithromycin 250 mg tablet See Rx Instructions PO .COMPLEX #6 04/10/24 tabs prednisone 10 mg tablet 10 mg PO DIRECTED #50 tabs 04/10/24 albuterol sulfate 2.5 mg/3 mL 2.5 mg (3 mL) inhalation Q4-6H PRN 04/23/24 (0.083 %) solution for nebulization shortness of breath or wheezing #75 mL albuterol sulfate 90 mcg/actuation 2 puff inhalation Q4-6H PRN 04/23/24 aerosol inhaler shortness of breath or wheezing #8.5 grams prednisone 50 mg tablet 50 mg PO DAILY #5 tabs 04/23/24 Allergies Allergy/AdvReac Type Severity Reaction Status Date / Time No Known Allergies Allergy Verified 04/22/24 21:43 Review of Systems Review of Systems: Constitutional : No Weight loss, No Fever, No Chills, No Night Sweats, No Fatigue, No Malaise ENT/Mouth : No Hearing loss, No Ear Pain, No Nasal Congestion, No Sinus Pain, No Hoarseness, No sore throat, No Rhinorrhea, No Swallowing Difficulty Eyes: No Eye Pain, No Swelling, No Redness, No Foreign Body, No Discharge, No Vision Changes Cardiovascular : No Chest Pain, No SOB, No Dyspnea on Exertion, No Orthopnea, No Edema, No Palpitations Respiratory : Complaining of dry cough, wheezing, shortness of breath Gastrointestinal : No Nausea, No Vomiting, No Diarrhea, No Constipation, No abdominal Pain, No Hematochezia, No Melena Genitourinary : no irregular bleeding, No Dysuria, No Urinary Frequency, No Hematuria, No Urinary Incontinence, No Urgency, No Flank Pain, No Urinary Flow Changes, No Hesitancy Musculoskeletal : No joint pain, No Myalgias, No Joint Swelling Skin : No Skin Lesions, No rash Neuro : No Weakness, No Numbness, No Paresthesias, No Loss of Consciousness, No Dizziness, No Headache Psych : No Anxiety/Panic, No Depression, No SI/HI/AH/VH, No Social Issues, Heme/Lymph: No Bruising, No Bleeding,No Lymphadenopathy Endocrine : No Polyuria, No Polydipsia, No Temperature Intolerance [facility] Past Medical History Medical History Asthma Social History Social History Household Members: Family Housing: Apartment Do you presently have visiting nurse or other home services: No Unable to assess alcohol history related to: Unknown Patient Tobacco Use Status: Current someday Tobacco user Tobacco use type: Cigarette Cigarettes Per Day: 15 Smoked in Last 30 Days: Yes Second Hand Smoke Exposure: No Use of substances other than those prescribed or required for medical reasons: Yes Substance Use Type: Marijuana Advance Directives: No Advance Directives Information Provided: Yes Do you have a plan to hurt others: No Plan service: No Physical Exam Vital Signs: Vital Signs: Last Vital Signs Temp 97.8 F 04/23/24 03:22 Pulse 94 04/23/24 03:33 Resp 30 H 04/23/24 03:33 BP 110/85 04/23/24 03:22 Pulse Ox 95 04/23/24 03:26 O2 Del Method Room Air 04/23/24 03:26 BMI result Body Mass Index 25.3 Const: Other: Appearance: Alert. Oriented X3. No acute distress. Eyes: Pupils equal, round and reactive to light. ENT: Pharynx normal. Neck: Normal inspection. Neck supple. No lymph nodes noted. No crepitus CVS: Normal heart rate and rhythm. Pulses normal. Normal S1 and S2 Respiratory: Decreased breath sounds bilaterally, wheezing bilaterally Abdomen: Soft and nontender. No rigidity. No distention. Skin: Skin warm and dry. Normal skin color. Normal skin turgor. Extremities: No lower extremity edema. No Lacerations. No Rash Neuro: Oriented X 3. No motor deficit. No sensory deficit. Moving all extremities. No slurred speech. CN 2 through 12 grossly intact Psych: calm, cooperative, normal affect Course Course Course Narrative: Patient receiving IV Solu-Medrol, magnesium, nebulization treatment per cecilestevie protocol Medications Administered Generic Name Dose Route Start Last Admin Trade Name Dilan PRN Reason Stop Dose Admin Magnesium Sulfate 2 gm in 50 mls @ 25 mls/hr 04/23/24 03:27 04/23/24 03:37 Magnesium Sulfate/H2o IV 04/23/24 05:26 25 mls/hr ONCE ONE Administration Discontinued Medications Generic Name Dose Route Start Last Admin Trade Name Dilan PRN Reason Stop Dose Admin Albuterol Sulfate 2.5 mg/ 0 mg 04/23/24 03:33 04/23/24 03:37 Albuterol/Ipratropium 3 ml INHALE 04/23/24 03:34 1 dose ONCE ONE Administration Methylprednisolone Sodium Succinate 125 mg 04/23/24 03:27 04/23/24 03:36 Methylprednisolone Sod Succ 125 Mg/2 Ml Vial IVPUSH 04/23/24 03:28 125 mg ONCE ONE Administration Medical Decision Making Medical Decision Making [facility] Narrative: Patient's labs and imaging pending. No significant abnormality in patient's hematology and chemistry blood gas is normal, x-ray negative for infiltrates. After 1 round of nebulization treatment, patient feeling much better. Patient was ambulated in the emergency room, no oxygen desaturation. Physical exam prior to discharge no wheezing, oxygen saturation 95% Patient states that she is not coughing more than usual, no phlegm production, no increased O2, chronic lung disease exacerbation is not suspected, this was most likely an asthma exacerbation. Admission/Observation Consideration of admission/observation: Escalation of care including admission/observation considered (Given patient's symptoms, observation was considered) Lab Data [facility] Lab Attestation statement: I reviewed the patient's lab results. 04/23/24 04:13 04/23/24 04:13 Labs: Lab Results 04/22/24 04/23/24 04/23/24 Range/Units 22:06 04:13 04:16 WBC 4.4 L (4.8-10.8) X10*3/uL RBC 4.42 (4.20-5.50) X10*6/uL Hgb 13.6 (12.0-16.0) g/dl Hct 39.3 (37.0-47.0) % MCV 88.9 (80.0-98.0) fL MCH 30.8 (27.0-33.0) pg MCHC 34.6 (31.0-35.0) g/dl RDW 14.2 (11.0-16.0) % Plt Count 266 (160-400) X10*3/uL MPV 9.5 (9.4-12.3) fL Immature Gran % (Auto) 0.0 (0.0-0.4) % Neut % (Auto) 22.7 L (45-73) % Lymph % (Auto) 62.2 H (20-40) % [place] % (Auto) 11.2 H (2-11) % Eos % (Auto) 2.8 (0-4) % Baso % (Auto) 1.1 (0-2) % Lymph # (Auto) 2.7 (1.2-4.9) X10*3/uL [place] # (Auto) 0.5 (0.1-1.2) X10*3/uL Eos # (Auto) 0.1 (0.0-0.4) X10*3/uL Baso # (Auto) 0.1 (0.0-0.2) X10*3/uL Abs Immat Gran (auto) 0.00 (0.00-0.03) X10*3/uL Absolute Neuts (auto) 1.0 L (2.0-8.3) x10*3/uL Absolute Nucleated RBC 0.000 (0.0-0.012) X10*3/uL Nucleated RBC % (auto) 0.0 (0.0-0.2) /100WBC Smear Tech's Comments VERIFIED VBG pH 7.39 (7.32-7.43) VBG pCO2 40 mmHg VBG pO2 74 mmHg VBG HCO3 25 (22-26) mmol/L VBG O2 Saturation 95.0 % VBG Base Excess 0.2 mmol/L Sodium 140 (135-145) mmol/L Potassium 4.1 (3.3-5.1) mmol/L Chloride 109 H (96-108) mmol/L Carbon Dioxide 23 (22-29) mmol/L Anion Gap 12 (12-20) BUN 15 (9-16) mg/dL Creatinine 0.71 (0.5-1.4) mg/dL Estim Creat Clear Calc 69.4 Estimated GFR > 60 Random Glucose 105 (60-115) mg/dL Calcium 8.5 D (8.4-10.2) mg/dL Influenza Type A (PCR) NEGATIVE (Negative) Influenza Type B (PCR) NEGATIVE (Negative) RSV RNA Qual (PCR) NEGATIVE (Negative) SARS-CoV-2 RNA (RT-PCR) NEGATIVE (Negative) Independent Interpretation I performed an independent interpretation of an: Plain X-Ray Radiology Impression Discussion of test interpretation with radiology: I have reviewed the radiologist's reading. Radiologist Impression: No consolidation or effusion. No pneumothorax. Imaged mediastinum appears unchanged. No interim osseous change in the [id number]. IMPRESSION: No consolidation and no significant change when compared to 04/06/2024 Critical Care Time Critical Care Time Critical Care Time: Yes Total Critical Care Time: 45 Attestation: I have personally provided critical care time. Time includes review of lab data, radiology results, discussion with consultants, and monitoring for potential decompensation. Intervention performed as documented. Discharge Plan Discharge Clinical Impression: Asthma exacerbation Patient Disposition: Home, Self-Care Instructions: Asthma (ED) Additional Instructions: I have personally provided critical care time. Time includes review of lab data, radiology results, discussion with consultants, and monitoring for potential decompensation. Intervention performed as documented. Prescriptions: New albuterol sulfate 90 mcg/actuation HFA aerosol inhaler 2 puff inhalation Q4-6H PRN (Reason: shortness of breath or wheezing) Qty: 8.5 0RF albuterol sulfate 2.5 mg /3 mL (0.083 %) solution for nebulization 2.5 mg inhalation Q4-6H PRN (Reason: shortness of breath or wheezing) Qty: 75 0RF prednisone 50 mg tablet 50 mg PO DAILY Qty: 5 0RF No Action Dupixent Pen 300 mg/2 mL pen injector 300 mg subcut Q2W Qty: 4 12RF fluticasone furoate-vilanterol [Breo Ellipta] 200-25 mcg/dose blister with device 1 inh inhalation DAILY 30 Days Qty: 1 6RF Incruse Ellipta 62.5 mcg/actuation blister with device 1 inh inhalation DAILY Qty: 1 6RF ipratropium-albuterol 0.5 mg-3 mg(2.5 mg base)/3 mL solution for nebulization 3 ml inhalation Q4H PRN (Reason: shortness of breath or wheezing) 30 Days Qty: 360 6RF albuterol sulfate 2.5 mg /3 mL (0.083 %) solution for nebulization 2.5 mg inhalation QID PRN (Reason: shortness of breath or wheezing) Qty: 180 6RF albuterol sulfate [Ventolin HFA] 90 mcg/actuation HFA aerosol inhaler 2 puff PO Q4-6H PRN (Reason: shortness of breath or wheezing) Qty: 18 6RF prednisone 10 mg tablet 10 mg PO DIRECTED Qty: 50 0RF Rx Instructions: Take 4 tabs daily for 5 days, then go down by 1 tab every 5 days azithromycin 250 mg tablet See Rx Instructions PO .COMPLEX Qty: 6 0RF Rx Instructions: For 250 mg dose pack: take 500 mg today (day 1), then 250 mg for 4 days (days 2-5) PO tramadol 50 mg tablet 50 mg PO Q6H PRN (Reason: pain) Qty: 20 0RF ibuprofen 600 mg tablet 600 mg PO Q6H PRN (Reason: fever or pain) Qty: 30 0RF cyclobenzaprine 10 mg tablet 1 tab PO BID PRN (Reason: pain) benzonatate 200 mg Capsule 200 mg PO TID hydroxyzine pamoate 25 mg capsule 1 cap PO BID PRN (Reason: Anxiety) nicotine 14 mg/24 hr Patch 24 Hour 14 mg transdermal DAILY Qty: 30 0RF famotidine [Pepcid] 20 mg tablet 20 mg PO DAILY Qty: 14 0RF ibuprofen 600 mg tablet 600 mg PO Q6H PRN (Reason: fever or pain) Qty: 30 0RF amoxicillin-pot clavulanate 875-125 mg tablet 1 tab PO BID Qty: 20 0RF Print Language: Luxembourgish
[2024-04-23 03:33] VITALS: PULSE 94; RESP 30; O2SAT 94
[2024-04-23] MEDS: methylPREDNISolone Sod Succ 125 MG/2 ML VIAL IVPUSH (03:36)
[2024-04-23] MEDS: Magnesium Sulfate/H2O 2 GM/50 ML PIGGYBACK IV (03:37)
[2024-04-23] MEDS: Albuterol Sulfate 2.5 MG, Albuterol/Iprat 2.5/0.5MG 3 ML 3 ML INHALE (03:37)
--- NOTE | 2024-04-23 03:41 | PC.NURSE ---
Pt medicated per [facility] Plan of care ongoing.
[2024-04-23 04:18] LABS: Basophils Absolute Auto 0.1 X10*3/uL (0.0-0.2); Basophils Percent Auto 1.1 % (0-2); Eosinophils Absolute Auto 0.1 X10*3/uL (0.0-0.4); Eosinophils Percent Auto 2.8 % (0-4); Hematocrit 39.3 % (37.0-47.0); Hemoglobin 13.6 g/dl (12.0-16.0); Lymphocytes Absolute Auto 2.7 X10*3/uL (1.2-4.9); Lymphocytes Percent Auto 62.2 % (20-40); MANUAL DIFF FLAG SCAN; Mean Corpuscular HGB Conc 34.6 g/dl (31.0-35.0); Mean Corpuscular Hemoglobin 30.8 pg (27.0-33.0); Mean Corpuscular Volume 88.9 fL (80.0-98.0); Mean Platelet Volume 9.5 fL (9.4-12.3); Monocytes Absolute Auto 0.5 X10*3/uL (0.1-1.2); Monocytes Percent Auto 11.2 % (2-11); Neutrophils Percent Auto 22.7 % (45-73); Platelet Count 266 X10*3/uL (160-400); Red Blood Count 4.42 X10*6/uL (4.20-5.50); Red Cell Distribution Width 14.2 % (11.0-16.0); SCAN SMEAR FLAG 1; White Blood Count 4.4 X10*3/uL (4.8-10.8)
[2024-04-23 04:21] LABS: Venous Blood Gas Refer to POC result
[2024-04-23 04:21] LABS: VBG Base Excess 0.2 mmol/L; VBG HCO3 25 mmol/L (22-26); VBG pCO2 40 mmHg; VBG pH 7.39 (7.32-7.43); VBG pO2 74 mmHg
[2024-04-23 04:32] LABS: Anion Gap 12 (12-20); Blood Urea Nitrogen 15 mg/dL (9-16); Calcium 8.5 mg/dL (8.4-10.2); Carbon Dioxide 23 mmol/L (22-29); Chloride 109 mmol/L (96-108); Creatinine Clr Calc Pharmacy 69.4; Estimated Glomerular Filt Rate > 60; Glucose Random 105 mg/dL (60-115); Potassium 4.1 mmol/L (3.3-5.1); Sodium 140 mmol/L (135-145)
[2024-04-23 04:35] LABS: SLIDE REVIEW VERIFIED
[2024-04-23 05:09] VITALS: O2SAT 93
[2024-04-23 05:29] VITALS: BP 117/78; PULSE 88; RESP 20; TEMP 36.9; O2SAT 92
== END 2024-04-23 05:31 | disposition home or self-care (01) ==
PROVIDERS: Emergency Provider Emergency Medicine; PCP Internal Medicine
DX: J45.901 Unspecified asthma with (acute) exacerbation (principal); R05.9 Cough, unspecified; R06.02 Shortness of breath; Z03.818 Encounter for observation for suspected exposure to other biological agents ruled out; Z79.899 Other long term (current) drug therapy
CPT/HCPCS: 0241U; 36415; 71045; 80048; 82803; 85025; 94640; 94664; 96374; 99285; J2919; J3475

== ENCOUNTER → 2024-04-22 21:46 | Outpatient (BNV) | payer OTHER, SELFPAY | PROVIDERS: PCP Internal Medicine; Visit Provider Radiology Neuroradiology | DX: R06.02 Shortness of breath (principal) | CPT/HCPCS: 71045 ==

== ENCOUNTER 2024-04-27 10:32 | Outpatient (AMB) | payer OTHER, SELFPAY ==
[2024-04-27 10:37] VITALS: BP 122/84; PULSE 86; O2SAT 97; BMI 25.1
--- NOTE | 2024-04-27 10:37 | A.OFFVIS_ITS ---
Vital Signs 04/27/24 10:37 Height 4 ft 9 in Weight 116 lb BMI 25.1 BP 122/84 Blood Pressure Location Rt brachial Position Sitting Pulse 86 Pulse Source Doppler Pulse Oximetry (%) 97 Oxygen Delivery Method Room Air Intake Visit Reasons: Asthma Allergies No Known Allergies Allergy (Verified 04/22/24 21:43) HPI HPI Asthma: Details: 44-year-old lady, active 20+ pack-year smoker, followed for underlying severe persistent asthma/COPD overlap syndrome. Patient states that currently secondary to her social situation she is not able to do Dupixent, thus her symptoms are not as well controlled on current regimen of Breo/Incruse and albuterol MDI/nebs. She is complaining of wheezing and some dyspnea, though denies productive coughing. [facility] Medical History Asthma Social History Household Members: Family Housing: Apartment Do you presently have visiting nurse or other home services: No Unable to assess alcohol history related to: Unknown Patient Tobacco Use Status: Current someday Tobacco user Tobacco use type: Cigarette Cigarettes Per Day: 15 Second Hand Smoke Exposure: No Substance Use Type: Marijuana service: No Review of Systems Const Denies daytime sleepiness, Denies excessive sweating, Denies fatigue, Denies fever(s), Denies lethargy, Denies malaise, Denies night sweats, Denies snoring and Denies weight loss Eyes Denies blurry vision and Denies itchy eyes ENT Denies nasal congestion, Denies post nasal drip, Denies sinus pain, Denies sinus pressure and Denies other ( Thrush) Card Denies chest pain, Denies pedal edema, Denies dyspnea, Denies orthopnea and Denies paroxysmal nocturnal dyspnea Resp Denies cough, Denies hemoptysis, Denies excessive phlegm production, Denies dyspnea, Denies snoring and Reports wheezing GI Denies abdominal pain and Denies heartburn Musc Denies myalgias, Denies arthralgias and Denies joint swelling Skin/Breast Denies rash Neuro Denies memory loss and Denies seizure-like activity Psych Denies abnormal sleep pattern, Denies anxiety and Denies memory loss Endo Denies excessive sweating, Denies fatigue and Denies heat intolerance Rafiq/Lymph Denies easy bruising Aller/Immun Denies itchy eyes, Denies seasonal rhinorrhea and Reports wheezing Physical Exam Vital Signs: Last Vital Signs Pulse 86 04/27/24 10:37 BP 122/84 04/27/24 10:37 Pulse Ox 97 04/27/24 10:37 Oxygen Delivery Method Room Air 04/27/24 10:37 BMI result Body Mass Index 25.1 Const General: no acute distress and alert Nutritional Appearance: not obese Orientation/consciousness: Other orientation findings ( oriented) HEENT Head: Yes atraumatic Eyes General: appearance normal, both eyes and all related structures Sclerae: sclerae normal EOM: EOMs intact bilaterally Neck Neck: Yes supple Lymphatic: no lymphadenopathy noted Resp Effort & Inspection: normal respiratory effort and no use of accessory muscles Auscultation: wheezes (Expiratory bilateral) Cardio Rate: regular rate Rhythm: regular rhythm Heart sounds: no gallops, no murmurs and no rubs Skin General skin exam: other ( warm) Extrem General: No clubbing, No cyanosis and No edema Assessment & Plan Assessment & Plan (1) Asthma: Code(s): J45.909 - Unspecified asthma, uncomplicated Category: Medical Plan: Now with an acute exacerbation, will treat with a prednisone taper. At this time patient unable to Dupixent secondary to social reasons. Will restart as her social situation improves. Continue baseline regimen of Breo, Incruse, duo nebs, and albuterol MDI. (2) DMITRY (obstructive sleep apnea): Code(s): G47.33 - Obstructive sleep apnea (adult) (pediatric) Category: Medical Plan: At this time patient is not interested in further sleep apnea testing. Will cancel sleep study. (3) Environmental and seasonal allergies: Code(s): J30.89 - Other allergic rhinitis Category: Medical Plan: Suboptimal control, expect to improve after Dupixent re-initiation. Medications: Refilled prednisone Take 4 tabs daily for 5 days, then go down by 1 tab every 5 days 10 mg PO DIRECTED 50 tabs 0RF J30.89 - Other allergic rhinitis Discontinued prednisone Discontinued Reason: Doctor's Order 50 mg PO DAILY 5 tabs 0RF Coding Level of Care Code Est Pt Level 4 (03380) Complex EM visit Add On G2211 Diagnoses Asthma J45.909 DMITRY (obstructive sleep apnea) G47.33 Environmental and seasonal allergies J30.89
== END 2024-04-27 10:48 | disposition home or self-care (01) ==
PROVIDERS: PCP Internal Medicine; Visit Provider Internal Medicine Pulmonary Disease
DX: J45.909 Unspecified asthma, uncomplicated (principal); G47.33 Obstructive sleep apnea (adult) (pediatric); J30.89 Other allergic rhinitis
CPT/HCPCS: 99214; G2211

== ENCOUNTER 2024-04-27 10:32 | Outpatient (REF) | payer OTHER, SELFPAY ==
[2024-05-02 19:48] LABS: Class Alternaria alternata 0/1; Class Aspergillus fumigatus 0/1; Class Bermuda Grass 2; Class Birch 2; Class Cat Dander 0; Class Cladosporium herbarum 0; Class Cockroach 0; Class Common Ragweed 2; Class Cottonwood 2; Class Derm. pterony 0/1; Class Dermatophagoides farinae 0/1; Class Dog Dander 0; Class Elm 2; Class Maple Box Elder 2; Class Mountain Cedar 1; Class Mouse Urine Protein 0; Class Mugwort 1; Class Oak 1; Class Penicillium crysogenum 0; Class Rough Pigweed 0/1; Class Sheep Sorrel 1; Class Sycamore 2; Class Timothy Grass 1; Class Walnut Tree 2; Class White Ash 2; Class White Mulberry 0; D001 IgE D pteronyssinus 0.14 kU/L; D002 - IgE D farinae 0.22 kU/L; E001 - IgE Cat Dander <0.10 kU/L; E005 - IgE Dog Dander <0.10 kU/L; E072-IgE Mouse Urine <0.10 kU/L; G002 IgE Bermuda Grass 1.03 kU/L; G006 - IgE Timothy Grass 0.62 kU/L; I006-IgE Cockroach, German <0.10 kU/L; Immunoglobulin E 99 kU/L (<OR=114); M001 IgE Penicillium chrysogen <0.10 kU/L; M002 - IgE Cladosporium herbar <0.10 kU/L; M003 - IgE Aspergillus fumigat 0.15 kU/L; M006 - IgE Alternaria alternat 0.13 kU/L; T001 IgE Maple/Box Elder 2.86 kU/L; T003 IgE Common Silver Birch 0.98 kU/L; T006 - IgE Cedar, Mountain 0.56 kU/L; T007 - IgE Oak, White 0.53 kU/L; T008 IgE Elm, American 1.59 kU/L; T010 - IgE Walnut 2.06 kU/L; T011 - IgE Maple Leaf Sycamore 1.25 kU/L; T014 - IgE Cottonwood 0.71 kU/L; T015 - IgE Ash, White 2.53 kU/L; T070 - IgE White Mulberry <0.10 kU/L; W014 IgE Pigweed, Common 0.29 kU/L; W018 IgE Sheep Sorrel 0.66 kU/L
== END 2024-04-27 10:33 | disposition home or self-care (01) ==
LOC: HO.LAB 10:32
PROVIDERS: Visit Provider Internal Medicine Pulmonary Disease
DX: G47.33 Obstructive sleep apnea (adult) (pediatric) (principal); J30.89 Other allergic rhinitis
CPT/HCPCS: 36415; 82785; 86003; 99212

== ENCOUNTER 2024-09-11 13:20 | Outpatient (AMB) | payer OTHER, SELFPAY ==
[2024-09-11 13:32] VITALS: BP 118/70; PULSE 90; O2SAT 100; BMI 27.0
--- NOTE | 2024-09-11 13:32 | MHC.OFFVIS ---
Vital Signs 09/11/24 13:32 Height 4 ft 9 in Weight 124 lb 8.979 oz BMI 27.0 BP 118/70 Blood Pressure Location Rt brachial Position Sitting Pulse 90 Pulse Source Pulse Oximeter Pulse Oximetry (%) 100 Oxygen Delivery Method Room Air Intake Visit Reasons: asthma Allergies No Known Allergies Allergy (Verified 09/11/24 13:35) HPI HPI asthma: Details: 44-year-old lady, active 20+ pack-year smoker, followed for underlying severe persistent asthma/COPD overlap syndrome. Patient states that she would like to restart Dupixent this time as her symptoms are not well controlled on Breo, duo nebs, Incruse, and albuterol MDI. She denies acute exacerbations. [facility] Medical History Asthma Social History Household Members: Family Housing: Apartment Do you presently have visiting nurse or other home services: No Unable to assess alcohol history related to: Unknown Patient Tobacco Use Status: Current someday Tobacco user Tobacco use type: Cigarette Cigarettes Per Day: 15 Second Hand Smoke Exposure: No Substance Use Type: Marijuana service: No Review of Systems Const Denies chills, Denies fatigue, Denies fever(s), Denies weight gain and Denies weight loss Eyes Denies blurry vision and Denies itchy eyes ENT Denies dizziness Card Denies chest pain, Denies leg edema, Denies lightheadedness, Denies palpitations, Denies dyspnea on exertion, Denies orthopnea and Denies other Resp Denies cough, Denies dyspnea on exertion and Denies wheezing GI Denies hematochezia and Denies change in stool character Musc Denies abnormal gait, Denies muscle weakness, Denies numbness, Denies radiating pain into limb and Denies tingling Skin/Breast Denies rash Neuro Denies abnormal gait, Denies dizziness, Denies memory loss, Denies numbness and Denies tingling Psych Denies abnormal sleep pattern, Denies anxiety and Denies memory loss Endo Denies fatigue and Denies palpitations Rafiq/Lymph Denies easy bruising Aller/Immun Denies itchy eyes, Denies seasonal rhinorrhea and Denies wheezing Physical Exam Vital Signs: Last Vital Signs Pulse 90 09/11/24 13:32 BP 118/70 09/11/24 13:32 Pulse Ox 100 09/11/24 13:32 Oxygen Delivery Method Room Air 09/11/24 13:32 BMI result Body Mass Index 27.0 Const General: no acute distress and alert Nutritional Appearance: not obese Orientation/consciousness: Other orientation findings ( oriented) HEENT Head: Yes atraumatic Eyes General: appearance normal, both eyes and all related structures Sclerae: sclerae normal EOM: EOMs intact bilaterally Neck Neck: Yes supple Lymphatic: no lymphadenopathy noted Resp Effort & Inspection: normal respiratory effort and no use of accessory muscles Auscultation: clear to auscultation bilaterally Cardio Rate: regular rate Rhythm: regular rhythm Heart sounds: no gallops, no murmurs and no rubs Skin General skin exam: other ( warm) Extrem General: No clubbing, No cyanosis and No edema Assessment & Plan Assessment & Plan (1) Asthma: Code(s): J45.909 - Unspecified asthma, uncomplicated Category: Medical Plan: Suboptimal control of Dupixent. Restart Dupixent. Continue baseline regimen of Breo, Incruse, duo nebs, and albuterol MDI. (2) Environmental and seasonal allergies: Code(s): J30.89 - Other allergic rhinitis Category: Medical Plan: Expect to improve on Dupixent. Coding Level of Care Code Est Pt Level 4 (44121) Diagnoses Asthma J45.909 Environmental and seasonal allergies J30.89
--- OUTSIDE RECORDS SUMMARY | 2024-09-11 14:29 | XMS_ITS | Referral Summary ---
Author Organization [facility] Address [address] [place] [address] Care Team Providers Care Speech Therapist Early Intervention Name Role Phone Patient, Has No Pcp Or Ref Primary Care Provider Unavailable Allergies No known active allergies Medications No known medications Social History Tobacco Use Types Packs/Day Years Used Date Smoking Tobacco: Every Day Cigarettes Smokeless Tobacco: Never Tobacco Cessation:Ready to Q uit: Not Asked; Counseling Given: Not Answered Comments No Sex and Gender Information Value Date Recorded Sex Assigned at Not on file Legal Sex Female 4:29 AM EDT Gender Identity Not on file Sexual Orientation Not on file Last Filed Vital Signs Vital Sign Reading Time Taken Comments Blood Pressure 131/88 08/29/2022 9:57 AM EDT Pulse 87 08/29/2022 9:57 AM EDT Temperature 36.5 ??C (97.7 ??F) 08/29/2022 8:37 AM ED T Respiratory Rate 18 08/29/2022 9:57 AM EDT Oxygen Saturation 99% 08/29/2022 9:57 AM EDT Inhaled Oxygen Concentration - - Weight 56.7 kg (125 lb) 08/29/2022 8:37 AM EDT Height 144.8 cm (4' 9 ) 08/29/2022 8:37 AM EDT Body Mass Index 27.05 08/29/2022 8:37 AM EDT Plan of Treatment Not on file [address] [place] [address] [facility] MEDICAID Care Teams Speech Therapist Early Intervention Relationship Specialty Start Date End Date Patient, Has No Pcp Or Ref DO NOT EDIT THIS RECORD VIA PROVIDER ON THE FLY PCP - General Aerophysics Engineer 08/29/22
--- OUTSIDE RECORDS SUMMARY | 2024-09-11 14:29 | XMS_ITS | Clinical Summary ---
Author Organization [facility] Address [address] [place] [address] Care Team Providers Care Quality Nurse Name Role Phone Patient, Has No Pcp [...] 08/29/2022 8:37 AM EDT Plan of Treatment Health Maintenance Due Date Last Done Comments Cervical Cancer Screening 1978 Cologuard 1978 Colon Cancer Screening 1978 Colonoscopy 1978 FOBT / Fit Test 1978 HIV Screening 1978 HPV and Pap Smear 1978 Pap Smear 1978 Sigmoidoscopy 1978 Hepatitis B Vaccines (1 of 3 - 19+ 3-dose series) 02/24 Pneumococcal Vaccine: Pediat kade (0-5 Years) and At-Risk Patients (6-50 Years) (1 of 2 - PCV) 1997 DTaP,Tdap,and Td Vaccines (1 - Tdap) 2000 COVID-19 Vaccine (1 - 2023- season) 2023 Alcohol/Substance Use Screening 04/25/2024 Influenza Vaccine (Season Ended) 2024 RSV Vaccine (60+ years old a nd patients) (1 - 1-dose 75+ series) 2053 Insurance [employer] Care Teams Quality Nurse Relationship Specialty Start Date End Date Patient, Has No Pcp Or Ref DO NOT EDIT THIS RECORD VIA PROVIDER ON THE FLY PCP - General Telecommunications Linesworker 08/29/22
== END 2024-09-11 13:53 | disposition home or self-care (01) ==
LOC: HO.HPS 13:21
PROVIDERS: PCP Nurse Practitioner Family; Visit Provider Internal Medicine Pulmonary Disease
DX: J45.909 Unspecified asthma, uncomplicated (principal); J30.89 Other allergic rhinitis
CPT/HCPCS: 99214

== ENCOUNTER → 2024-09-11 13:20 | Outpatient (BNVA) | payer OTHER, SELFPAY | PROVIDERS: PCP Nurse Practitioner Family; Visit Provider Internal Medicine Pulmonary Disease | DX: J44.89 Other specified chronic obstructive pulmonary disease (principal); J45.50 Severe persistent asthma, uncomplicated; J30.89 Other allergic rhinitis | CPT/HCPCS: 99212 ==

== ENCOUNTER 2024-10-02 18:47 | Emergency (ER) | payer OTHER, SELFPAY ==
[2024-10-02 19:39] VITALS: BP 116/75; PULSE 81; RESP 16; TEMP 36.5; O2SAT 94; BMI 26.8
--- OUTSIDE RECORDS SUMMARY | 2024-10-02 19:54 | XMS_ITS | Clinical Summary ---
Author Organization [facility] Address [address] [place] [address] Care Team Providers Care Canvas Baster Name Role Phone Patient, Has No Pcp [...] series) 2053 Insurance [employer] Care Teams Canvas Baster Relationship Specialty Start Date End Date Patient, Has No Pcp Or Ref DO NOT EDIT THIS RECORD VIA PROVIDER ON THE FLY PCP - General Tinner Helper 08/29/22
--- NOTE | 2024-10-02 20:07 | ED.ASTHMA ---
HPI - Asthma General Chief Complaint: Asthma Stated Complaint: Asthma Time Seen by Provider: 10/02/24 19:45 Source: patient Mode of arrival: ambulatory Limitations: no limitations History of Present Illness ED Provider: Donta Jeffery HPI Narrative: 44-year-old female with a history of asthma COPD presents to ED requesting tubing for her nebulizer machine. Patient states her tubing is mild functioning and broken has a hole. Patient denies any shortness of breath, calf pain, coughing up blood, fever, or chills. Patient states slight wheezing. Patient denies any chest pain Related Data Home Medications ?Medication ?Instructions ?Recorded ?Confirmed hydroxyzine pamoate 25 mg capsule 1 cap PO BID PRN Anxiety 05/02/22 05/02/22 Previous Rx's ?Medication ?Instructions ?Recorded famotidine 20 mg tablet (Pepcid) 20 mg PO DAILY #14 tabs 05/03/22 ibuprofen 600 mg tablet 600 mg PO Q6H PRN fever or pain 02/20/24 #30 tabs albuterol sulfate 2.5 mg/3 mL 2.5 mg (3 mL) inhalation Q4-6H PRN 04/23/24 (0.083 %) solution for nebulization shortness of breath or wheezing #75 mL albuterol sulfate 90 mcg/actuation 2 puff inhalation Q4-6H PRN 04/23/24 aerosol inhaler shortness of breath or wheezing #8.5 grams prednisone 10 mg tablet 10 mg PO DIRECTED #50 tabs 05/30/24 fluticasone furoate 200 1 inh inhalation DAILY 30 days #1 08/14/24 mcg-vilanterol 25 mcg/dose ea inhalation powder (Breo Ellipta) ipratropium 0.5 mg-albuterol 3 mg 3 ml inhalation Q4H PRN shortness 09/11/24 (2.5 mg base)/3 mL nebulization of breath or wheezing 30 days #360 soln mL dupilumab 300 mg/2 mL subcutaneous 300 mg (2 mL) subcut Q2W #4 mL 09/12/24 pen injector (Dupixent) umeclidinium 62.5 mcg/actuation 1 inh inhalation DAILY #1 ea 09/27/24 blister powder for inhalation (Incruse Ellipta) prednisone 20 mg tablet 40 mg (2 x 20 mg) PO DAILY 5 days 10/02/24 #10 tabs Allergies Allergy/AdvReac Type Severity Reaction Status Date / Time No Known Allergies Allergy Verified 10/02/24 19:44 Review of Systems Review of Systems: Tubing. Medication refill Yes all other systems are reviewed and are negative [facility] Past Medical History Medical History Asthma Social History Social History Household Members: Family Housing: Apartment Do you presently have visiting nurse or other home services: No Unable to assess alcohol history related to: Unknown Patient Tobacco Use Status: Current someday Tobacco user Tobacco use type: Cigarette Cigarettes Per Day: 15 Second Hand Smoke Exposure: No Substance Use Type: Marijuana Advance Directives: No Advance Directives Information Provided: Yes service: No Physical Exam Vital Signs: Vital Signs: Last Vital Signs Temp 97.7 F 10/02/24 20:17 Pulse 81 10/02/24 20:17 Resp 16 10/02/24 20:17 BP 116/75 10/02/24 20:17 Pulse Ox 94 10/02/24 20:17 O2 Del Method Room Air 10/02/24 20:17 BMI result Body Mass Index 26.8 Const: General: cooperative, healthy appearing, comfortable, no acute distress, well developed, alert and awake Orientation/consciousness: patient oriented x3 HEENT: Head: Yes normal to inspection, Yes No palpable skull fracture present, Yes normocephalic and Yes atraumatic Eyes: General: appearance normal, both eyes and all related structures Neck: Neck: Yes normal visual inspection, Yes full ROM, Yes no lymphadenopathy, Yes no meningeal signs, Yes trachea midline, Yes supple, No anterior neck swelling and No tender Chest: Chest palpation & inspection: normal inspection of the chest and normal palpation of entire chest wall Resp: Effort & Inspection: normal respiratory effort and able to speak in complete sentences Auscultation: clear to auscultation bilaterally and wheezes expiratory wheezes (mild) Cardio: Jugular venous distension: no JVD Heart sounds: S1 normal heart sound present and S2 normal heart sound present GI: Inspection: Yes normal to inspection Palpation (GI): Soft to palpation, not firm, nontender, no guarding and not rigid : General: Yes no CVA tenderness Back/Spine/Pelvis: Back: no CVA tenderness and No back tenderness Skin: General skin exam: no rashes or lesions noted, elasticity normal and turgor normal Neuro: General: patient oriented x3, gait normal, tone normal, moves all extremities, Normal light touch and pain sensation, no meningeal signs, no focal motor deficits, CN's II-XI intact bilaterally and normal sensation to monofilament Extrem: General: Yes normal to inspection, Yes full ROM and Yes capillary refill normal Psych: Appearance: grossly normal, well kempt and not disheveled Medical Decision Making Medical Decision Making MDM Narrative: 44-year-old female presents to ED requesting tubing for her nebulizer machine. Patient well-appearing. Not suspecting pneumothorax, hemothorax, pneumonia, CHF, [place], or PE. Respiratory therapist gave patient tubing. Patient will be discharged with prednisone. Patient informed to return to the ED immediately for any concerning symptoms. Differential Diagnosis Differential Diagnoses: The differential diagnosis associated with the presentation includes (Medication refill) Admission/Observation Consideration of admission/observation: Escalation of care including admission/observation considered Independent Historian Clinical information obtained from an independent historian. History obtained from or confirmed by: Other (Patient) Prescription Management I considered prescription management with: Other Discharge Plan Discharge Clinical Impression: Asthma, Medication refill Patient Disposition: Home, Self-Care Instructions: Asthma (ED), Medicine Refill (ED) Additional Instructions: Recommend follow-up with your PCP. Return to the ED immediately for any chest pain, shortness of breath, coughing up blood, weakness, leg swelling, calf pain, or any other concerning symptoms. You were given tube in for a nebulizer machine. Prescriptions: New prednisone 20 mg tablet 40 mg PO DAILY 5 Days Qty: 10 0RF No Action prednisone 10 mg tablet 10 mg PO DIRECTED Qty: 50 0RF Rx Instructions: Take 4 tabs daily for 5 days, then go down by 1 tab every 5 days fluticasone furoate-vilanterol [Breo Ellipta] 200-25 mcg/dose blister with device 1 inh inhalation DAILY 30 Days Qty: 1 6RF ipratropium-albuterol 0.5 mg-3 mg(2.5 mg base)/3 mL solution for nebulization 3 ml inhalation Q4H PRN (Reason: shortness of breath or wheezing) 30 Days Qty: 360 6RF Dupixent Pen 300 mg/2 mL pen injector 300 mg subcut Q2W Qty: 4 12RF Incruse Ellipta 62.5 mcg/actuation blister with device 1 inh inhalation DAILY Qty: 1 6RF hydroxyzine pamoate 25 mg capsule 1 cap PO BID PRN (Reason: Anxiety) famotidine [Pepcid] 20 mg tablet 20 mg PO DAILY Qty: 14 0RF ibuprofen 600 mg tablet 600 mg PO Q6H PRN (Reason: fever or pain) Qty: 30 0RF albuterol sulfate 90 mcg/actuation HFA aerosol inhaler 2 puff inhalation Q4-6H PRN (Reason: shortness of breath or wheezing) Qty: 8.5 0RF albuterol sulfate 2.5 mg /3 mL (0.083 %) solution for nebulization 2.5 mg inhalation Q4-6H PRN (Reason: shortness of breath or wheezing) Qty: 75 0RF Stand Alone Forms: Work/School Release Interventions: ED Discharge Assessment Last Done: 10/02/24 20:17 Discharge Date/Time: 10/02/24 20:18 Print Language: Setswana
[2024-10-02 20:17] VITALS: BP 116/75; PULSE 81; RESP 16; TEMP 36.5; O2SAT 94
== END 2024-10-02 20:18 | disposition home or self-care (01) ==
PROVIDERS: Emergency Provider Emergency Medicine; PCP Nurse Practitioner Family
DX: J45.909 Unspecified asthma, uncomplicated (principal); F17.210 Nicotine dependence, cigarettes, uncomplicated; Z76.0 Encounter for issue of repeat prescription; Z79.899 Other long term (current) drug therapy
CPT/HCPCS: 99282; 99283

== ENCOUNTER 2024-11-08 14:01 | Outpatient (AMB) | payer OTHER, SELFPAY ==
[2024-11-08 14:03] VITALS: BP 130/84; PULSE 98; O2SAT 100; BMI 26.8
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
--- OUTSIDE RECORDS SUMMARY | 2024-11-08 14:46 | XMS_ITS | Clinical Summary ---
Author Organization [facility] Address [address] [place] [address] Care Team Providers Care Process Supervisor Name Role Phone Patient, Has No Pcp [...] 87 08/29/2022 9:57 AM EDT Temperature 36.5 C (97.7 F) 08/29/2022 8:37 AM EDT Respiratory Rate 18 08/29/2022 9:57 AM EDT [...] 2023 Alcohol/Substance Use Screening 04/25/2024 Influenza Vaccine (#1) 2024 RSV Vaccine (60+ years old a nd patients) (1 - 1-dose 75+ series) 2053 Insurance [employer] Care Teams Process Supervisor Relationship Specialty Start Date End Date Patient, Has No Pcp Or Ref DO NOT EDIT THIS RECORD VIA PROVIDER ON THE FLY PCP - General Coordinate Measuring Machine Technician 08/29/22
== END 2024-11-08 14:22 | disposition home or self-care (01) ==
LOC: HO.HPS 14:01
PROVIDERS: PCP Nurse Practitioner Family; Visit Provider Internal Medicine Pulmonary Disease
DX: J45.909 Unspecified asthma, uncomplicated (principal); S27.329A Contusion of lung, unspecified, initial encounter; J30.89 Other allergic rhinitis
CPT/HCPCS: 99214; G2211

== ENCOUNTER → 2024-11-08 14:01 | Outpatient (BNVA) | payer OTHER, SELFPAY | PROVIDERS: PCP Nurse Practitioner Family; Visit Provider Internal Medicine Pulmonary Disease | DX: J44.89 Other specified chronic obstructive pulmonary disease (principal); S27.329A Contusion of lung, unspecified, initial encounter; J30.89 Other allergic rhinitis; Z79.899 Other long term (current) drug therapy | CPT/HCPCS: 99212 ==

== ENCOUNTER 2024-12-22 08:50 | Outpatient (REF) | payer OTHER, SELFPAY ==
--- NOTE | ~2024-12-22 | CT_ITS ---
CLINICAL HISTORY: S22.49XA - Multiple fractures of ribs, unspecified side, initial encount... CT chest without contrast Comparison: None provided Findings: The heart is normal size. The visualized thyroid and mediastinum are unremarkable. Left basilar lung bulla. Bronchial wall thickening may be reactive or due to bronchitis. Scattered bilateral lung nodules measuring up to 3 mm (for example in the right upper lobe on series 4 image 23-25). The upper abdomen is unremarkable. Old healed left rib fractures with at most mild deformity. No acute rib fracture. IMPRESSION: No acute rib fracture. Up to 3 mm lung nodules. Per Fleischner society criteria, no follow-up in low risk, and optional [address] follow-up in high risk patients. This document has been electronically signed by: Carol Ann Chambers MD on 12/26/2024 10:01:38
--- OUTSIDE RECORDS SUMMARY | 2024-12-22 08:52 | XMS_ITS | Clinical Summary ---
Author Organization [facility] Address [address] [place] [address] Care Team Providers Care Pipe Inspector Name Role Phone Ref, Has No Pcp Or Primary Care Provider Unavail able Allergies No known active allergies Medications No [...] Health Maintenance Due Date Last Done Comments Cologuard 1978 Colon Cancer Screening 1978 Colonoscopy 1978 FOBT / Fit Test 1978 HIV Screening 1978 Sigmoidoscopy 1978 Hepatitis B Vaccines (1 [...] (1 - 1-dose 75+ series) 2053 Insurance [facility] MEDICAID Care Teams Pipe Inspector Relationship Specialty Start Date End Date Ref, Has No Pcp Or DO NOT EDIT THIS RECORD VIA PROVIDER ON THE FLY PCP - General Wood Drilling Machine Operator 08/29/22
== END 2024-12-22 08:51 | disposition home or self-care (01) ==
LOC: HO.CT 08:50
PROVIDERS: Visit Provider Internal Medicine Pulmonary Disease
DX: R91.8 Other nonspecific abnormal finding of lung field (principal)
CPT/HCPCS: 71250

== ENCOUNTER → 2024-12-22 08:52 | Outpatient (BNV) | payer OTHER, SELFPAY | PROVIDERS: Visit Provider Radiology Diagnostic Radiology | DX: R91.1 Solitary pulmonary nodule (principal) | CPT/HCPCS: 71250 ==

== ENCOUNTER 2025-03-15 10:23 | Outpatient (AMB) | payer OTHER, SELFPAY ==
[2025-03-15 10:30] VITALS: BP 122/78; PULSE 98; O2SAT 96; BMI 27.0
--- NOTE | 2025-03-15 10:30 | MHC.OFFVIS ---
Vital Signs 03/15/25 10:30 Height 4 ft 9 in Weight 125 lb BMI 27.0 BP 122/78 Blood Pressure Location Rt brachial Position Sitting Pulse 98 Pulse Source Pulse Oximeter Pulse Oximetry (%) 96 Oxygen Delivery Method Room Air Intake Visit Reasons: asthma Allergies No Known Allergies Allergy (Verified 03/15/25 10:37) HPI HPI asthma: Details: 44-year-old lady, active 20+ pack-year smoker, followed for underlying severe persistent asthma/COPD overlap syndrome. Her symptoms have not been well controlled she was not able to receive Dupixent and had also difficulties receiving her bronchodilators. She has not received her Dupixent yet and her symptoms are not as well controlled. Furthermore she has complain of an acute exacerbation of her underlying asthmatic bronchitis with cough productive of brownish sputum and some wheezing. REPLACED BY [facility] Medical History Asthma Social History Household Members: Family Housing: Apartment Do you presently have visiting nurse or other home services: No Patient Tobacco Use Status: Current someday Tobacco user Tobacco use type: Cigarette Cigarettes Per Day: 15 Second Hand Smoke Exposure: No Substance Use Type: Marijuana service: No Review of Systems Const Denies daytime sleepiness, Denies excessive sweating, Denies fatigue, Denies fever(s), Denies lethargy, Denies malaise, Denies night sweats, Denies snoring and Denies weight loss Eyes Denies blurry vision and Denies itchy eyes ENT Denies nasal congestion, Denies post nasal drip, Denies sinus pain, Denies sinus pressure and Denies other ( Thrush) Card Denies chest pain, Denies pedal edema, Denies dyspnea, Denies orthopnea and Denies paroxysmal nocturnal dyspnea Resp Reports cough, Denies hemoptysis, Reports excessive phlegm production, Denies dyspnea, Denies snoring and Reports wheezing GI Denies abdominal pain and Denies heartburn Musc Denies myalgias, Denies arthralgias and Denies joint swelling Skin/Breast Denies rash Neuro Denies memory loss and Denies seizure-like activity Psych Denies abnormal sleep pattern, Denies anxiety and Denies memory loss Endo Denies excessive sweating, Denies fatigue and Denies heat intolerance Rafiq/Lymph Denies easy bruising Aller/Immun Denies itchy eyes, Denies seasonal rhinorrhea and Reports wheezing Physical Exam Vital Signs: Last Vital Signs Pulse 98 03/15/25 10:30 BP 122/78 03/15/25 10:30 Pulse Ox 96 03/15/25 10:30 Oxygen Delivery Method Room Air 03/15/25 10:30 BMI result Body Mass Index 27.0 Const General: no acute distress and alert Nutritional Appearance: not obese Orientation/consciousness: Other orientation findings ( oriented) HEENT Head: Yes atraumatic Eyes General: appearance normal, both eyes and all related structures Sclerae: sclerae normal EOM: EOMs intact bilaterally Neck Neck: Yes supple Lymphatic: no lymphadenopathy noted Resp Effort & Inspection: normal respiratory effort and no use of accessory muscles Auscultation: wheezes (Expiratory bilateral) Cardio Rate: regular rate Rhythm: regular rhythm Heart sounds: no gallops, no murmurs and no rubs Skin General skin exam: other ( warm) Extrem General: No clubbing, No cyanosis and No edema Assessment & Plan Assessment & Plan (1) Asthma: Code(s): J45.909 - Unspecified asthma, uncomplicated Category: Medical Plan: Suboptimal control on Breo, Incruse, duo nebs, and albuterol MDI/nebs. Expect to improve on Dupixent. Will treat acute exacerbation with a course of prednisone and Levaquin. (2) Environmental and seasonal allergies: Code(s): J30.89 - Other allergic rhinitis Category: Medical Plan: Suboptimal control off Dupixent, expect to improve with restarting on Dupixent. Coding Level of Care Code Est Pt Level 4 (92863) Diagnoses Asthma J45.909 Environmental and seasonal allergies J30.89
--- OUTSIDE RECORDS SUMMARY | 2025-03-15 11:05 | XMS_ITS | Encounter Summary ---
Author Organization [facility] Address [address] [place] [address] Care Team Providers Care Casing Builder Name Role Phone Jessie Walter DO Primary Care Pro vider Unavailable Liliana Blake MD Primary Care Provider Un available Justin Madrid MD Primary Care Provider Unava ilursula Encounter Details Date Type Department Care Team Description 10/29/2014 Afternoon Nanny Report Medical Records [address] [place] [address] Social History Tobacco Use Types Packs/Day Years Used Date Smoking Tobacco: Every Day Cigarettes 0.8 Smokeless Tobacco: Never Alcohol Use Standard Drinks/Week Comments Yes 0 (1 standard drink = 0.6 oz pur e alcohol) now stopped Sex Assigned at Date Recorded Not on file documented as of this encounter Plan of Treatment Not on file documented as of this encounter Visit Diagnoses Not on filedocumented in this encounter Care Teams Casing Builder Relationship Specialty Start Date End Date Jessie Walter DO PCP - General Internal Medicine 06/18/14 12/11/15 Liliana Blake MD PCP - General Internal Medicine 12/12/15 Justin Madrid MD PCP - General Internal Medicine 06/07/18 documented as of this encounter
--- OUTSIDE RECORDS SUMMARY | 2025-03-15 11:05 | XMS_ITS | Encounter Summary ---
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
--- OUTSIDE RECORDS SUMMARY | 2025-03-15 11:05 | XMS_ITS | Encounter Summary ---
Author Organization [facility] Address [address] [place] [address] Care Team Providers Care Railroad Brake Repairer Name Role Phone Jessie Walter DO Primary Care Pro vider Unavailable Liliana Blake MD Primary Care Provider Un available Justin Madrid MD Primary Care Provider Alethea jaimes Encounter Details Date Type Department Care Team Description 09/30/2015 Vp Securities Report Medical Records [address] [place] [address] Dayana Escobar MD Social History Tobacco Use Types Packs/Day Years [...] on filedocumented in this encounter Care Teams Railroad Brake Repairer Relationship Specialty Start Date End Date Jessie Walter DO PCP - General Internal Medicine 06/18/14 12/11/15 Liliana Blake MD PCP - General Internal Medicine 12/12/15 Justin Madrid MD PCP - General Internal Medicine 06/07/18 documented as of this encounter
--- OUTSIDE RECORDS SUMMARY | 2025-03-15 11:05 | XMS_ITS | Encounter Summary ---
Author Organization [facility] Address [address] [place] [address] Care Team Providers Care Quality Control Microbiology Supervisor Name Role Phone Liliana Blake MD Primary Care Provider Un available Justin Madrid MD Primary Care Provider Unava ilable Encounter Details Date Type Department Care Team Description 11/03/2016 Transfer Records Medical Records [address] [place] [id number] Abstract, Provider Social History Tobacco Use Types [...] on filedocumented in this encounter Care Teams Quality Control Microbiology Supervisor Relationship Specialty Start Date End Date Liliana Blake MD PCP - General Internal Medicine 12/12/15 Justin Madrid MD PCP - General Internal Medicine 06/07/18 documented as of this encounter
--- OUTSIDE RECORDS SUMMARY | 2025-03-15 11:05 | XMS_ITS | Encounter Summary ---
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
--- OUTSIDE RECORDS SUMMARY | 2025-03-15 11:05 | XMS_ITS | Encounter Summary ---
Author Organization [facility] Address [address] [place] [address] Care Team Providers Care Nurse Liaison Name Role Phone Liliana Blake MD Primary Care Provider Un available Justin Madrid MD Primary Care Provider Unava ilable Encounter Details Date Type Department Care Team Description 08/24/2016 Release of Information Medical Records [address] [place] [id number] Abstract, Provider Social History Tobacco Use Types [...] on filedocumented in this encounter Care Teams Nurse Liaison Relationship Specialty Start Date End Date Liliana Blake MD PCP - General Internal Medicine 12/12/15 Justin Madrid MD PCP - General Internal Medicine 06/07/18 documented as of this encounter
--- OUTSIDE RECORDS SUMMARY | 2025-03-15 11:05 | XMS_ITS | Encounter Summary ---
Author Organization [facility] Address [address] [place] [address] Care Team Providers Care Manager Lan Name Role Phone Ellen Cornejo MD Primary Care Provider Unavailable Jessie Walter DO Primary Care Pro vider Unavailable Liliana Blake MD Primary Care Provider Un available Justin Madrid MD Primary Care Provider Unava ilable Encounter Details Date Type Department Care Team Description 01/08/2014 Release of Information Medical Records [address] [place] [id number] Abstract, Provider Social History Tobacco Use Types [...] on filedocumented in this encounter Care Teams Manager Lan Relationship Specialty Start Date End Date Ellen Cornejo MD PCP - General Internal Medicine 12/12/1305/27 Jessie Walter DO PCP - General Internal Medicine 06/18/14 12/11/15 Liliana Blake MD PCP - General Internal Medicine 12/12/15 Justin Madrid MD PCP - General Internal Medicine 06/07/18 documented as of this encounter
--- OUTSIDE RECORDS SUMMARY | 2025-03-15 11:05 | XMS_ITS | Encounter Summary ---
Author Organization [facility] Address [address] [place] [address] Care Team Providers Care Promotion Writer Name Role Phone Ellen Cornejo MD Primary Care Provider Unavailable Jessie Walter DO Primary Care Pro vider Unavailable Liliana Blake MD Primary Care Provider Un available Justin Madrid MD Primary Care Provider Unava ilable Reason for Visit * Reason Onset Date Comments er follow up 12/27/2013 Encounter Details Date Type Department Care Team Description 12/27/2013 Telephone Adult Medicine [address] [address] Ellen Cornejo MD er follow up Social History Tobacco Use Types Packs/Day Years Used Date Smoking Tobacco: Never Assessed Sex Assigned at Date Recorded Not on file documented as of this encounter Miscellaneous Notes * Telephone Encounter - Khushboo Irwin M.A. - 12/27/2013 4:56 PM EDT Notes given to Karlee tsai book appt * Telephone Encounter - Judy Bills - 12/27/2013 4:18 PM EDT ER follow-up appointment booked to be determined If ER follow up, can be booked with mid-level or MD. If hospital admission follow up MUST be booked with a physician Appointment time: to be determinedAM Provider visit is scheduled with: to be dtermined Hospital patient was treated at: [facility] Date of visit: 12/27/13 Was this only an ER visit or was the patient admitted to the hospital? ER visit onlyER visit only If patient was admitted what was the date of discharge? N/A Reason/diagnosis for visit or stay: diverticulitis Was visit or stay related to an injury? NO If yes, what was the date of injury (DOI)? N/A If yes, was the injury due to N/A Tests performed: Lab: YES X-ray: YES EKG: YES Other tests. If yes, what?; N/A documented in this encounter Plan of Treatment Not on file documented as of this encounter Visit Diagnoses Not on filedocumented in this encounter Care Teams Promotion Writer Relationship Specialty Start Date End Date Ellen Cornejo MD PCP - General Internal Medicine 12/12/1305/27 Jessie Walter DO PCP - General Internal Medicine 06/18/14 12/11/15 Liliana Blake MD PCP - General Internal Medicine 12/12/15 Justin Madrid MD PCP - General Internal Medicine 06/07/18 documented as of this encounter
== END 2025-03-15 10:59 | disposition home or self-care (01) ==
LOC: HO.HPS 10:23
PROVIDERS: Visit Provider Internal Medicine Pulmonary Disease
DX: J45.909 Unspecified asthma, uncomplicated (principal); J30.89 Other allergic rhinitis
CPT/HCPCS: 99214

== ENCOUNTER → 2025-03-15 10:23 | Outpatient (BNVA) | payer OTHER, SELFPAY | PROVIDERS: Visit Provider Internal Medicine Pulmonary Disease | DX: J30.89 Other allergic rhinitis (principal); J44.89 Other specified chronic obstructive pulmonary disease; F17.210 Nicotine dependence, cigarettes, uncomplicated | CPT/HCPCS: 99212 ==